=== PATIENT | female | born 2000 | race Caucasian/White ===

== ENCOUNTER 2019-03-20 09:33 | Outpatient (CLI) | payer OTHER, SELFPAY ==
--- NOTE | 2019-03-20 | US_ITS ---
WS: [id number] ULTRASOUND OB COMPLETE TECHNIQUE: Complete ultrasound. CLINICAL INFORMATION: SUPERVISION OF NORMAL FIRST IN SECOND TRIMESTER COMPARISON: None. FINDINGS: Single interuterine gestation is identified with breech presentation. Placenta is posterior. Placenta grade 0. Normal amniotic fluid volume. cardiac activity: 146 BPM. AGA: 20 weeks 4 days OSITO by ultrasound: August 03, 2019 Estimated weight: 13 ounces BDP: 4.8 cm = 20w4d HC: 17.7 cm = 20w1d AC: 15.4 cm = 20w4d FEMUR LENGTH: 3.4 cm = 20w4d Anatomic survey: Anatomic survey is normal. Normal stomach. Kidneys and bladder are normal. Normal 3 vessel cord. Norm al 3 vessel cord insertion. Normal 4 chamber heart. Normal spine. Intracranial contents are normal. N ormal posterior fossa and cisterna magna. US/US OB >= 14 weeks fetus [address]100 IMPRESSION: 1. Single intrauterine with visualized cardiac activity. AGA 20 week s 4 days 2. Placenta is posterior No evidence of abruption or previa. 3. anatomic survey is normal. 4. Normal amniotic fluid volume.
== END 2019-03-20 09:34 | disposition home or self-care (01) ==
LOC: WPI 11:25 → RADOUTREAD 11:28
PROVIDERS: Family Provider Nurse Practitioner; PCP Nurse Practitioner; Visit Provider Family Medicine
DX: Z76.89 Persons encountering health services in other specified circumstances (principal)

== ENCOUNTER 2019-04-15 19:45 | Outpatient (CLI) | payer OTHER, MEDICAID, SELFPAY ==
[2019-04-15 19:45] VITALS: BMI 20.7
[2019-04-15 19:57] VITALS: BP 141/84; PULSE 114; RESP 18; TEMP 36.5
[2019-04-15 20:07] VITALS: BP 130/77; PULSE 104
[2019-04-15 20:19] VITALS: PULSE 92; RESP 18; TEMP 36.5
--- NOTE | 2019-04-15 20:20 | PC.NURSE ---
RN at bedside, education provided on elevated blood pressures and what symptoms too look for such as head ache not relieved from tylenol, epigastric pain, visual disturbances and nausea and vomiting. patient verbalized understanding as well her spouse. Patient reported that she feel this was just an anxiety attack and that she was feeling much better, no longer feeling flushed, sweating or shaking at all. Patient reported that she felt that going home was a good plan and that she would keep her scheduled appointment with Dr. Chamberlain on Wednesday and discuss her anxiety with him at this time. Patient stated, I am feeling so much better now . Discharge paperwork discussed and patient verbalized understanding.
== END 2019-04-15 20:36 | disposition home or self-care (01) ==
LOC: OPOB 19:55 → OBGYN 20:25 → OPOB 04-17 08:07
PROVIDERS: Family Provider Nurse Practitioner; PCP Nurse Practitioner; Visit Provider Family Medicine
DX: O16.9 Unspecified maternal hypertension, unspecified trimester (principal); Z3A.00 Weeks of gestation of pregnancy not specified
CPT/HCPCS: 99211

== ENCOUNTER 2019-07-22 02:16 | Inpatient (IN) | payer OTHER, MEDICAID, SELFPAY ==
[2019-07-22] VITALS (106 sets, daily range): BP systolic 0–151; BP diastolic 0–101; PULSE 77–144; RESP 16–20; TEMP 36.7–37; O2SAT 93–100
[2019-07-22 02:50] LABS: Nitrazine Paper, PH Positive
[2019-07-22 03:26] LABS: Basophils % 0.3 %; Eosinophils # 0.1 10^3/uL (0.0-0.8); Eosinophils % 0.9 %; Hematocrit 36.2 % (37.0-47.0); Hemoglobin 11.9 g/dL (11.5-15.3); Lymphocytes # 1.8 10^3/uL (0.8-4.8); Lymphocytes % 16.9 %; Mean Corpuscular HGB Conc 32.9 g/dL (30.0-36.0); Mean Corpuscular Hemoglobin 28.7 pg (28.0-34.0); Mean Corpuscular Volume 87.4 fL (81-99); Mean Platelet Volume 10.5 fL (7.4-10.4); Monocytes # 1.4 10^3/uL (0.2-0.9); Monocytes % 12.6 %; Neutrophils # 7.5 10^3/uL (1.8-7.7); Neutrophils % 69.1 %; Nucleated Red Blood Cells % 0 %; Platelet Count 194 10^3/cmm (130-400); Red Blood Count 4.14 10^6/uL (4.1-5.3); Red Cell Distribution Width 12.5 % (12.1-15.1); White Blood Count 10.8 10^3/uL (4.0-10.0)
[2019-07-22] MEDS: dextrose 5%-lactated ringers 1,000 ML 125 ML IV (04:00)
[2019-07-22] MEDS: miSOPROStol 100 mcg tablet 25 MCG SUBLINGUAL (04:31)
[2019-07-22] MEDS: oxytocin 30 UNIT/500 ML BAG IV (08:53)
[2019-07-22] MEDS: fentaNYL 50 mcg/mL INJ 2mL IV ×2 (10:36→11:55)
[2019-07-22] MEDS: lactated ringers 1,000 ML 999 ML IV ×2 (11:20→12:20)
--- NOTE | 2019-07-22 12:23 | ANES.PREANE2 ---
Pre-Anesthetic Assessment Pre-Anesthetic Assessment: Height/Weight: Height 1.78 m Weight 74.843 kg Temp Pulse Resp BP Pulse Ox 98.2 F 102 H 20 H 116/67 100 07/22/19 09:33 07/22/19 12:21 07/22/19 11:55 07/22/19 12:21 07/22/19 12:18 Social: Social History: No alcohol and No tobacco Exam: Pre-Anes Outpt Exam: alert, oriented x 3, clear to auscultation bilaterally and regular rate & rhythm Airway: Submandibular: WNL Cervical ROM: WNL MP: 2 Dentition: Other (teeth ok) History/ROS: No significant history except as noted Pulmonary: Pulmonary: None reported CV/HEM: CV/HEM: None reported : : None reported Hepatic: Hepatic: None reported GI: GI: GERD Metabolic: Metabolic: None reported Musc/skel: Musc/skel: None reported Neuropsych: Neuropsych: None reported Anesthetic Plan: ASA status: 2 Anesthesia: Anesthesia Evaluation, Eval. for regional block and Regional (specify below) (labor epidural) Risk of > 500 ml blood loss (7ml/kg in children): No Meds/Allergies Current Medications: Current Medications Generic Name Dose Route Start Last Admin Trade Name Freq PRN Reason Stop Dose Admin Fentanyl 25 - 100 mcg 07/22/19 08:35 07/22/19 11:55 Sublimaze IV 50 mcg Q1H PRN Administration SEVERE PAIN Lactated Ringer's 1,000 mls @ 999 m ls/hr 07/22/19 02:21 07/22/19 12:20 Lactated Ringers IV 999 mls/hr .Q1H1M PRN Administration Per L&D Rescitati on Protocol Dextrose/Lactated Ringer's 1,000 mls @ 125 m ls/hr 07/22/19 02:30 07/22/19 11:20 Dextrose 5%-Lact ated Ringers IV Infused .Q8H TIRSO Infusion Oxytocin 30 unit in 500 ml s @ 1 mls/hr 07/22/19 08:45 07/22/19 10:15 Pitocin IV 11 milliunit/min .Q24H TIRSO 11 mls/hr Titration Protocol 1 MILLIUNIT/MIN Ropivacaine 200 mg in 100 mls @ 13 mls/hr 07/22/19 11:15 07/22/19 12:20 Naropin Premix EPIDURAL 13 mls/hr .Q7H42M TIRSO Administration PFSH Anesthesia PFSH: Social History (Updated 07/22/19 @ 03:29 by Liza Whitten RN) Smoking and tobacco status: never smoked Female Reproductive History: : 1 Data Anesthesia CBC & Chem 7: 07/22/19 02:55 Other Labs: Laboratory Results - last 48 hr 07/22/19 02:55 WBC 10.8 H RBC 4.14 Hgb 11.9 Hct 36.2 L MCV 87.4 MCH 28.7 MCHC 32.9 RDW 12.5 Plt Count 194 MPV 10.5 H Neut % (Auto) 69.1 Lymph % (Auto) 16.9 Atkinson % (Auto) 12.6 Eos % (Auto) 0.9 Baso % (Auto) 0.3 Neut # (Auto) 7.5 Lymph # (Auto) 1.8 Atkinson # (Auto) 1.4 H Eos # (Auto) 0.1 Baso # (Auto) 0.0 Nucleated RBC % (auto) 0 Nucleated RBCs # 0.0 Cardiac Studies: No Data to Display
--- NOTE | 2019-07-22 12:24 | ANES.PROC ---
Anesthesia Procedures Procedure/Date: 07/22/19 Epidural: Time Out Performed: Yes Consents Signed: Procedure Consent Consent: requested by attending/covering physician, risks and benefits reviewed and patient agrees to proceed Lumbar Level: L4-L5 Epidural position: sitting Epidural procedure: sterile prep of area, 18 g needle, negative for paresthesia passed, neg for paresthesia, test dose given, 1.5% xylocaine 1:200k epi (5ml), placed PCEA, no systemic response, sterile dressing applied, L.U.D. no apparent complications and 0.2% Ropiavacaine @ mls/hr (13)
--- NOTE | 2019-07-22 14:27 | P.PCNOB_ITS ---
Delivery Note: Date of delivery: July 22, 2019 Pre-Delivery Course: The patient is an otherwise healthy 19-year-old 1 female at 38 weeks estimated gestational age who presented to the hospital with spontaneous rupture of membranes. She had an unremarkable . She was GBS negative. Her glucose screen was negative. Her blood type is O+. The remainder of her labs were within normal limits. She was having inconsistent contractions. Her cervix was about 70% effaced and 2 cm dilated. Cytotec 25 mcg x 1 sublingual was used initially. 4 hours later, Pitocin was started. An epidural was placed. She then progressed to complete without di fficulty. Delivery: DELIVERY: The patient progressed to complete without difficulty. She delivered a male with a weight of 6 pounds 15 ounces with Apgars of 8, 9. The baby was delivered from the ELFEGO position. The baby was then completely delivered and placed on the mother's abdomen. The baby was crying vigorously and elected not to suction the baby's mouth and nose. The cord was then clamped and cut. There was no nuchal cord. There was no meconium. The placenta and 3 vessel cord were delivered intact shortly thereafter. The perineum and vaginal vault were carefully examined. No lacerations were noted. Both the mother and the baby were in stable condition. A&P Assessment and plan (1) 38 weeks gestation of : Status: Acute (2) Spontaneous rupture of membranes: Status: Acute (3) Spontaneous vaginal delivery: Status: Acute Coding Level of Care Code Acute Radiology Services Manager for Chg Fwd Diagnoses 38 weeks gestation of Z3A.38 Spontaneous rupture of membranes Spontaneous vaginal delivery O80
[2019-07-22] MEDS: docusate sodium 100 mg Capsule PO (17:18)
[2019-07-22] MEDS: lanolin oint 7 gm 1 APPLIC TOPICAL (17:20)
[2019-07-22] MEDS: benzocaine-menthol 78 gm Canister 1 SPRAY TOPICAL (17:20)
--- NOTE | 2019-07-22 19:32 | PC.NURSE ---
Patient ambulated to PP room at this time, no complaints of nausea, dizziness or lightheadedness.
[2019-07-23 00:27] VITALS: BP 126/76; PULSE 85; RESP 18; TEMP 36.7
[2019-07-23 03:03] LABS: Hematocrit 31.2 % (37.0-47.0); Hemoglobin 10.3 g/dL (11.5-15.3); Mean Corpuscular Hemoglobin 29.1 pg (28.0-34.0); Mean Corpuscular Volume 88.1 fL (81-99); Platelet Count 174 10^3/cmm (130-400); Red Blood Count 3.54 10^6/uL (4.1-5.3); Red Cell Distribution Width 12.6 % (12.1-15.1); White Blood Count 12.8 10^3/uL (4.0-10.0)
[2019-07-23 04:50] VITALS: BP 108/68; PULSE 81; RESP 17; TEMP 36.7; O2SAT 97
[2019-07-23 10:15] VITALS: BP 124/80; PULSE 64; RESP 18; TEMP 36.7
[2019-07-23] MEDS: prenatal vitamin Capsule 1 CAP PO (10:35)
[2019-07-23] MEDS: docusate sodium 100 mg Capsule PO (10:35)
[2019-07-23 15:46] VITALS: BP 124/80; PULSE 64; RESP 18; TEMP 36.7
--- NOTE | 2019-07-24 06:49 | PM.OBGYDC ---
Discharge Providers HEALTHCARE RISK CONTROL CONSULTANT Date of Admission: 07/22/19 02:16 Date of Discharge: 07/24/19 Attending Provider at Admission: Gato Chamberlain MD Attending Provider at Discharge: Gato Chamberlain MD Primary Care Provider: NIKOLAS Martinez Diagnoses at Discharge Discharge Diagnosis (1) 38 weeks gestation of : Status: Resolved (2) Spontaneous rupture of membranes: Status: Resolved (3) Spontaneous vaginal delivery: Status: Resolved Reason for Visit Reason for Visit: Reason For Visit: LABOR Hospital Course Hospital Course: The patient presented at 38 weeks estimated gestational age due to having spontaneous rupture of membranes just prior to arrival to hospital. She was not making change, so Cytotec 25 mcg was placed. That was then followed by Pitnitesh. She gradually progressed to complete without difficulty and had an unremarkable vaginal delivery. Her course was also unremarkable. She had minimal bleeding. She breast-fed well. Her pain was well controlled. Information Peripartum Data: Infant Delivery Method: Vaginal Physical Exam Narrative: EXAM NARRATIVE: The patient is alert. She appears comfortable. Her heart has a regular rate and rhythm with no murmurs appreciated. Lungs are clear to auscultation bilaterally. Her fundus is firm and below the umbilicus. Urinary Catheter Management^: Lee: Cath Placed During This Visit: yes Urinary Catheter Date of Insertion: 07/22/19 Urinary Catheter Time of Insertion: 12:55 Discharge Data Vitals: Last Vital Signs Temp 98.1 F 07/23/19 15:46 Pulse 64 07/23/19 15:46 Resp 18 07/23/19 15:46 BP 124/80 07/23/19 15:46 Pulse Ox 97 07/23/19 04:50 Discharge Plan Discharge Patient Disposition: Home, Self-Care Condition: Stable Prescriptions: New ibuprofen 800 mg Tablet 800 mg PO TID Qty: 45 RF: 0 Continued Zyrtec 10 mg Capsule 10 mg PO DAILY PRN (Reason: Allergy Symptoms) RF: 0 Vitamin 27 mg iron- 800 mcg Tablet 1 tab PO DAILY RF: 0 Discharge Orders: Discharge Order (Routine); Ordered 07/23/19 Ordered By: Gato Chamberlain Referrals: Gato Chamberlain MD [Physician] - 6 Weeks Discharge Diet: Usual diet Discharge Activity: Limit activity as instructed Patient Instructions: OB Discharge Report, OB Food/Drug Interaction Guide, OB Proud Parent Packet, OB Vaginal Deliveries Discharge Date/Time: 07/23/19 15:35 Discharge Attestations HEALTHCARE RISK CONTROL CONSULTANT Time Spent in Discharge Care*: less than 30 min Coding Level of Care Code Acute Frit Maker for Chg Fwd Diagnoses 38 weeks gestation of Z3A.38 Spontaneous rupture of membranes Spontaneous vaginal delivery O80
== END 2019-07-23 15:35 | disposition home or self-care (01) | DRG 807 ==
LOC: OBGYN 07-23 09:54 → OPOB 07-24 07:56
PROVIDERS: Admitting Provider Family Medicine; Family Provider Nurse Practitioner; PCP Nurse Practitioner; Visit Provider Family Medicine
DX: O80 Encounter for full-term uncomplicated delivery (principal); Z37.0 Single live birth; Z3A.38 38 weeks gestation of pregnancy
CPT/HCPCS: 12345; 36415; 51702; 59025; 59409; 83986; 85025; 85027; 96374; 96375; 99211; J2795; J3010

== ENCOUNTER 2019-07-28 08:53 | Emergency (ER) | payer OTHER, MEDICAID, SELFPAY ==
[2019-07-28 09:00] VITALS: BP 141/100; PULSE 126; RESP 18; TEMP 37.2; O2SAT 100; BMI 21.1
--- NOTE | 2019-07-28 09:12 | ED_ITS ---
HPI - Female Genitourinary General: Chief complaint: Vaginal Bleeding Stated complaint: VAG BLEEDING POST GIVING 07/21 Time Seen by Provider: 07/28/19 09:04 History of Present Illness: HPI Narrative: This patient is a 19-year-old female who is 6 days from a normal spontaneous vaginal delivery. She reports no complications with the or delivery. She was delivered by Dr. Chamberlain. She has been doing well with no pain since delivery. She did run a low-grade fever the night before last. She has been having typical lochia until this morning at about 730. She got up out of bed and had a large blood clot. Since then she has been bleeding heavily, more than 1 pad per hour. She denies feeling short of breath or lightheaded. She is noted to be tachycardic on arrival. She is breast-feeding. MD elicited complaint: vaginal bleeding Pertinent past history: other (6 days ) Onset (ago): hour(s) (3) Associated symptoms: Reports fevers/chills; Deny abdominal pain, headache(s) or nausea Review of Systems General: Reports: 10 or more systems reviewed and unremarkable except in HPI and below Const: Reports: fever(s) (Night before last, 100.4); Denies: chills, fatigue or malaise Eyes: Denies: change in vision ENMT: Denies: odynophagia Card: Denies: chest pain or swelling of feet/ankles Resp: Denies: dyspnea, productive cough or non-productive cough GI: Denies: abdominal pain, nausea or vomiting : Denies: flank pain or difficulty voiding Musc: Denies: neck pain or back pain Skin/Breast: Denies: rash Neuro: Denies: headache(s), numbness in extremities or weakness in extremities Srikanth/Lymph: Denies: easy bruising or easy bleeding PFS ED PFSH: Social History (Updated 07/22/19 @ 03:29 by Liza Whitten RN) Smoking and tobacco status: never smoked Physical Exam Const: COMMON NORMALS: no acute distress, patient oriented x3, no limitations and alert GENERAL APPEARANCE: cooperative and comfortable HENMT: HEAD & SCALP: normal to inspection FACE & SINUS: normal facial exam Eye: GENERAL EYE: appearance normal, both eyes and all related structures Neck/C-Spine: COMMON NORMALS: supple, no meningeal signs and no JVD Chest: COMMONS NORMALS: normal inspection of the chest Resp: COMMON NORMALS: normal respiratory effort, No use of accessory muscles and clear to auscultation bilaterally AUSCULTATION: clear to auscultation bilaterally Cardio: COMMON NORMALS: no JVD, regular rate, regular rhythm and No murmurs present (Cardio) RATE: regular rate RHYTHM: regular rhythm GI: COMMON NORMALS: Normal to inspection, nondistended, normoactive bowel sounds present, Soft to palpation and non-tender INSPECTION: Yes normal to inspection AUSCULTATION: Yes normoactive bowel sounds PALPATION: Yes Soft to palpation Back/Pelvis: COMMON NORMALS: thoracic and lumbar spine normal to inspection Extremity: COMMON NORMALS: normal to inspection Neuro: COMMON NORMALS: patient oriented x3, moves all extremities, no focal motor deficits and no sensory deficits noted SENSORIUM/ORIENTATION: Yes alert MENINGEAL SIGNS: Yes no meningeal signs Psych: COMMON NORMALS: mental status grossly normal, cooperative and normal affect Skin: COMMON NORMALS: no rashes or lesions noted and turgor normal GENERAL SKIN EXAM: no rashes or lesions noted and turgor normal Course ED course: I spoke with Dr. Chamberlain about this patient. He recommended Cyto francois, 800 mcg per rectum now and 100 mcg per rectum 3 times daily for 3 days. He will follow her up in the office on Wednesday. Vital Signs: Vital signs: Vital Signs Temperature 98.9 F 07/28/19 09:00 Pulse Rate 79 07/28/19 10:23 Respiratory Rate 16 07/28/19 10:23 Blood Pressure 118/78 07/28/19 10:23 Pulse Oximetry 98 07/28/19 10:23 MDM - Female MDM Narrative: Medical decision making narrative: Late bleeding. She was seen in the office yesterday by Dr. Chamberlain due to her fever and was feeling fine at that time. She is not at all tender over the uterus today, no fever, no foul discharge. She is having some brisk bleeding. Will treat with Cytotec and outpatient follow-up. Hemoglobin is good. She is reliable to return if worsening in any way and we discussed return precautions. Lab Data: Labs: Lab Results 07/28/19 07/28/19 07/28/19 Range/Units 09:14 09:14 09:14 WBC 10.3 H (4.0-10.0) 10^3/ uL RBC 5.04 (4.1-5.3) 10^6/u L Hgb 14.2 (11.5-15.3) g/dL Hct 44.6 (37.0-47.0) % MCV 88.5 (81-99) fL MCH 28.2 (28.0-34.0) pg MCHC 31.8 (30.0-36.0) g/dL RDW 12.8 (12.1-15.1) % Plt Count 349 (130-400) 10^3/c mm MPV 8.6 (7.4-10.4) fL Neut % (Auto) 76.9 % Lymph % (Auto) 11.7 % Mckean % (Auto) 9.7 % Eos % (Auto) 1.1 % Baso % (Auto) 0.3 % Neut # (Auto) 7.9 H (1.8-7.7) 10^3/u L Lymph # (Auto) 1.2 (0.8-4.8) 10^3/u L Mckean # (Auto) 1.0 H (0.2-0.9) 10^3/u L Eos # (Auto) 0.1 (0.0-0.8) 10^3/u L Baso # (Auto) 0.0 (0.0-0.1) 10^3/u L Nucleated RBC % (a uto) 0 % Nucleated RBCs # 0.0 /100WBC Sodium 140 (136-145) mmol/L Potassium 3.7 (3.5-5.1) mmol/L Chloride 102 (98-107) mmol/L Carbon Dioxide 24 (22-29) mmol/L Anion Gap 17.7 (5-19) BUN 8 (6-20) mg/dL Creatinine 0.6 (0.5-0.9) mg/dL GFR Calculation 126.2 (90-130) mL/min Glucose 96 (65-115) mg/dL Calculated Osmolal ity 286 (285-295) mOsm/k g Calcium 9.9 (8.5-10.5) mg/dL Total Bilirubin 0.8 (0.15-1.2) mg/dL AST 35 H (0-32) U/L ALT 47 H (0-33) U/L Alkaline Phosphata se 181 H (35-105) IU/L Total Protein 8.1 (6.6-8.7) g/dL Albumin 4.2 (3.5-5.2) g/dL Globulin 3.9 (1.3-4.6) g/dL Blood Type O Positive Rho(D) Type Positive Antibody Screen Negative Discharge Plan Discharge Patient Disposition: Home, Self-Care Clinical Impression: Vaginal bleeding Condition: Stable Prescriptions: New Cytotec 100 mcg tablet 100 mcg [place] TID Qty: 9 RF: 0 No Action Zyrtec 10 mg Capsule 10 mg PO DAILY PRN (Reason: Allergy Symptoms) RF: 0 Vitamin 27 mg iron- 800 mcg Tablet 1 tab PO DAILY RF: 0 ibuprofen 800 mg Tablet 800 mg PO TID Qty: 45 RF: 0 Discharge Orders: Discharge Order (Routine); Ordered 07/28/19 Ordered By: Clara De La Paz Referrals: Codie Sumner FNP [Primary Care Provider] - Gato Chamberlain MD [Physician] - 08/01/19 Discharge Diet: Usual diet Discharge Activity: Resume usual activity Patient Instructions: Bleeding (ED) Activity Restrictions/Additional Instructions: Return to the emergency department if fever, abdominal pain, continued heavy bleeding, shortness of breath, chest pain, lightheadedness. Discharge Date/Time: 07/28/19 10:23 Coding Level of Care Code ED Clinical Pharmacologist for Ritchieg Fwd Exam Comprehensive
[2019-07-28] MEDS: sodium chloride 0.9% 1,000 ML 999 ML IV (09:13)
[2019-07-28 09:14] VITALS: BP 128/85; PULSE 102; RESP 16; O2SAT 99
[2019-07-28 09:31] LABS: Basophils % 0.3 %; Eosinophils # 0.1 10^3/uL (0.0-0.8); Eosinophils % 1.1 %; Hematocrit 44.6 % (37.0-47.0); Hemoglobin 14.2 g/dL (11.5-15.3); Lymphocytes # 1.2 10^3/uL (0.8-4.8); Lymphocytes % 11.7 %; Mean Corpuscular HGB Conc 31.8 g/dL (30.0-36.0); Mean Corpuscular Hemoglobin 28.2 pg (28.0-34.0); Mean Corpuscular Volume 88.5 fL (81-99); Mean Platelet Volume 8.6 fL (7.4-10.4); Monocytes % 9.7 %; Neutrophils # 7.9 10^3/uL (1.8-7.7); Neutrophils % 76.9 %; Nucleated Red Blood Cells % 0 %; Platelet Count 349 10^3/cmm (130-400); Red Blood Count 5.04 10^6/uL (4.1-5.3); Red Cell Distribution Width 12.8 % (12.1-15.1); White Blood Count 10.3 10^3/uL (4.0-10.0)
[2019-07-28 09:43] LABS: Alanine Aminotransferase 47 U/L (0-33); Albumin Level 4.2 g/dL (3.5-5.2); Alkaline Phosphatase 181 IU/L (35-105); Anion Gap 17.7 (5-19); Aspartate Amino Transferase 35 U/L (0-32); Blood Urea Nitrogen 8 mg/dL (6-20); Calcium 9.9 mg/dL (8.5-10.5); Carbon Dioxide 24 mmol/L (22-29); Chloride 102 mmol/L (98-107); Globulin 3.9 g/dL (1.3-4.6); Glomerular Filtration Rate 126.2 mL/min (90-130); Glucose 96 mg/dL (65-115); Osmolality Calculated 286 mOsm/kg (285-295); Potassium 3.7 mmol/L (3.5-5.1); Sodium 140 mmol/L (136-145); Total Bilirubin 0.8 mg/dL (0.15-1.2); Total Protein 8.1 g/dL (6.6-8.7)
[2019-07-28 10:12] VITALS: BP 127/83; PULSE 81; RESP 18; O2SAT 98
[2019-07-28] MEDS: miSOPROStol 200 mcg Tablet 800 MCG PR (10:14)
[2019-07-28 10:23] VITALS: BP 118/78; PULSE 79; RESP 16; O2SAT 98
== END 2019-07-28 10:23 | disposition home or self-care (01) ==
PROVIDERS: Emergency Provider Emergency Medicine; Family Provider Nurse Practitioner; PCP Nurse Practitioner
DX: N93.9 Abnormal uterine and vaginal bleeding, unspecified (principal)
CPT/HCPCS: 12345; 80053; 85025; 86850; 86900; 96360; 99282; 99283; J7030

== ENCOUNTER 2019-09-29 06:07 | Emergency (ER) | payer OTHER, MEDICAID, SELFPAY ==
[2019-09-29 06:15] VITALS: PULSE 122; RESP 18; TEMP 36.4; O2SAT 99
--- NOTE | 2019-09-29 06:17 | ED_ITS ---
HPI - Arrhythmia/Palpitations General: Chief Complaint: General Medical Stated Complaint: HEART RACING Time Seen by Provider: 09/29/19 06:17 History of Present Illness: HPI narrative: 19-year-old female comes in complaining of rapid heart rate began around 4 4:00 this morning. She denies any fever sweats or chills she is not had any cough she does have some submandibular lymph node tenderness. She denies any dysuria urgency or frequency she denies any nausea vomiting or diarrhea. She is not taking any [id number] cough decongestant or antihistamine medications. She is not taking any stimulants. She is 8 weeks for overall uncomplicated vaginal delivery she denies any vaginal discharge or itching. There is no pelvic pain she denies any abdominal pain shortness of breath or chest pain. She any skin lesions or infections that she is noticed. MD complaint: rapid heart beat Onset (ago): hour(s) Time: 04:00 Duration: constant Severity: moderate Context: occurred during rest Associated symptoms: Reports no associated symptoms; Deny anxiety, cough, diaphoresis, muscle cramps, nausea, paresthesias, sense of impending doom, short of breath or syncope Review of Systems Const: Denies: diaphoresis ENMT: Denies: throat pain, ear or mastoid pain, nasal discharge or nasal congestion Card: Denies: syncope Resp: Denies: dyspnea, productive cough or non-productive cough GI: Denies: nausea : Denies: flank pain, difficulty voiding, dysuria, urinary frequency or urinary urgency Musc: Denies: muscle cramps Skin/Breast: Denies: rash or pruritus Psych: Denies: anxiety PFSH ED PFSH: Medical History (Updated 09/29/19 @ 10:24 by Lazarus Ramos DO) No significant past medical history Surgical History (Updated 09/29/19 @ 06:53 by Lazarus Ramos DO) No significant past surgical history Social History (Updated 09/29/19 @ 06:53 by Lazarus Ramos DO) Smoking and tobacco status: never smoked Alcohol intake: never Physical Exam Const: COMMON NORMALS: no acute distress GENERAL APPEARANCE: cooperative and comfortable ORIENTATION/CONSCIOUSNESS: Yes awake, Yes oriented to person, Yes oriented to place and Yes oriented to time HENMT: COMMON NORMALS: normocephalic, atraumatic, hearing grossly normal bilaterally, external ears normal, EAC's normal, TM's normal bilaterally, Normal nasal mucous membranes and turbinates present, moist oral mucous membranes and oropharynx normal HEAD & SCALP: normocephalic and atraumatic NOSE: Normal nasal mucous membranes and turbinates present EXTERNAL EAR: Yes external ears normal EXTERNAL AUDITORY CANAL: EAC's normal TYMPANIC MEMBRANE: TM's normal bilaterally Eye: COMMON NORMALS: Equal, round and reactive pupils present, EOMs intact bilaterally, conjunctivae normal and no scleral icterus CONJUNCTIVA: Yes conjunctivae normal PUPIL: Yes Equal, round and reactive pupils present Neck/C-Spine: COMMON NORMALS: full ROM, no lymphadenopathy, supple and no JVD Lymph: LYMPHATIC: no lymphadenopathy noted and no lymphedema noted Resp: COMMON NORMALS: normal respiratory effort, No retractions, No use of accessory muscles and clear to auscultation bilaterally AUSCULTATION: clear to auscultation bilaterally Cardio: COMMON NORMALS: no JVD, regular rate, regular rhythm and No murmurs present (Cardio) RATE: regular rate RHYTHM: regular rhythm GI: COMMON NORMALS: Soft to palpation and No hepatosplenomegaly present AUSCULTATION: Yes normoactive bowel sounds PALPATION: Yes Soft to palpation, No Tenderness to palpation present (GI), No Guarding due to palpation present (GI) and Yes No hepatosplenomegaly present Extremity: COMMON NORMALS: normal to inspection, capillary refill normal, no clubbing, cyanosis or edema, no calf tenderness and no pedal edema Neuro: SENSORIUM/ORIENTATION: Yes oriented to person, Yes oriented to place and Yes oriented to time Skin: COMMON NORMALS: no rashes or lesions noted GENERAL SKIN EXAM: no rashes or lesions noted Course Vital Signs: Vital signs: Vital Signs Temperature 97.6 F 09/29/19 06:15 Pulse Rate 109 H 09/29/19 10:35 Respiratory Rate 18 09/29/19 10:35 Blood Pressure 105/55 09/29/19 10:35 Pulse Oximetry 98 09/29/19 10:35 MDM - Arrhythmia/Palpitations MDM Narrative: Medical decision making narrative: Patient has some mild dehydration she did improve after IV fluids. She had some ketones she did not have any significant elevation of BUN or creatinine. However follow-up with her primary care doctor return if has any further problems push fluids at home. Lab Data: Labs: Lab Results 09/29/19 09/29/19 09/29/19 Range/Units 07:00 08:08 08:08 WBC 7.4 (4.0-10.0) 10^3/ uL RBC 4.62 (4.1-5.3) 10^6/u L Hgb 13.0 (11.5-15.3) g/dL Hct 40.3 (37.0-47.0) % MCV 87.2 (81-99) fL MCH 28.1 (28.0-34.0) pg MCHC 32.3 (30.0-36.0) g/dL RDW 13.3 (12.1-15.1) % Plt Count 252 (130-400) 10^3/c mm MPV 8.2 (7.4-10.4) fL Neut % (Auto) 83.4 % Lymph % (Auto) 9.7 % [place] % (Auto) 6.2 % Eos % (Auto) 0.3 % Baso % (Auto) 0.3 % Neut # (Auto) 6.16 (1.8-7.7) 10^3/u L Lymph # (Auto) 0.7 L (0.8-4.8) 10^3/u L [place] # (Auto) 0.5 (0.2-0.9) 10^3/u L Eos # (Auto) 0.0 (0.0-0.8) 10^3/u L Baso # (Auto) 0.0 (0.0-0.1) 10^3/u L Nucleated RBC % (a uto) 0 % Nucleated RBCs # 0.0 /100WBC Sodium (136-145) mmol/L Potassium (3.5-5.1) mmol/L Chloride (98-107) mmol/L Carbon Dioxide (22-29) mmol/L Anion Gap (5-19) BUN (6-20) mg/dL Creatinine (0.5-0.9) mg/dL GFR Calculation (90-130) mL/min Glucose (65-115) mg/dL Calculated Osmolal ity (285-295) mOsm/k g Lactic Acid 1.0 (0.5-2.2) mmol/L Calcium (8.5-10.5) mg/dL Total Bilirubin (0.15-1.2) mg/dL AST (0-32) U/L ALT (0-33) U/L Alkaline Phosphata se (35-105) IU/L Total Protein (6.6-8.7) g/dL Albumin (3.5-5.2) g/dL Globulin (1.3-4.6) g/dL Urine Color Yellow (Yellow) Urine Appearance Clear (CLEAR) Urine pH 5.0 (5-7) Ur Specific Gravit y 1.030 (1.005-1.030) Urine Protein Neg (Negative) Urine Glucose (UA) Norm (Normal) Urine Ketones 3+ H (Negative) Urine Blood Neg (Negative) Urine Nitrate Negative (Negative) Urine Bilirubin Neg (NEGATIVE) Urine Urobilinogen Norm (Negative) mg/dL Ur Leukocyte Caridad ase Negative (Negative) 09/29/19 Range/Units 08:08 WBC (4.0-10.0) 10^3/ uL RBC (4.1-5.3) 10^6/u L Hgb (11.5-15.3) g/dL Hct (37.0-47.0) % MCV (81-99) fL MCH (28.0-34.0) pg MCHC (30.0-36.0) g/dL RDW (12.1-15.1) % Plt Count (130-400) 10^3/c mm MPV (7.4-10.4) fL Neut % (Auto) % Lymph % (Auto) % [place] % (Auto) % Eos % (Auto) % Baso % (Auto) % Neut # (Auto) (1.8-7.7) 10^3/u L Lymph # (Auto) (0.8-4.8) 10^3/u L [place] # (Auto) (0.2-0.9) 10^3/u L Eos # (Auto) (0.0-0.8) 10^3/u L Baso # (Auto) (0.0-0.1) 10^3/u L Nucleated RBC % (a uto) % Nucleated RBCs # /100WBC Sodium 140 (136-145) mmol/L Potassium 4.1 (3.5-5.1) mmol/L Chloride 106 (98-107) mmol/L Carbon Dioxide 18 L (22-29) mmol/L Anion Gap 20.1 H (5-19) BUN 18 (6-20) mg/dL Creatinine 0.6 (0.5-0.9) mg/dL GFR Calculation 126.2 (90-130) mL/min Glucose 66 (65-115) mg/dL Calculated Osmolal ity 285 (285-295) mOsm/k g Lactic Acid (0.5-2.2) mmol/L Calcium 8.6 (8.5-10.5) mg/dL Total Bilirubin 1.7 H (0.15-1.2) mg/dL AST 16 (0-32) U/L ALT 15 (0-33) U/L Alkaline Phosphata se 81 (35-105) IU/L Total Protein 7.4 (6.6-8.7) g/dL Albumin 4.4 (3.5-5.2) g/dL Globulin 3.0 (1.3-4.6) g/dL Urine Color (Yellow) Urine Appearance (CLEAR) Urine pH (5-7) Ur Specific Gravit y (1.005-1.030) Urine Protein (Negative) Urine Glucose (UA) (Normal) Urine Ketones (Negative) Urine Blood (Negative) Urine Nitrate (Negative) Urine Bilirubin (NEGATIVE) Urine Urobilinogen (Negative) mg/dL Ur Leukocyte Caridad ase (Negative) Discharge Plan Discharge Patient Disposition: Home Clinical Impression: Acute dehydration Condition: Stable Prescriptions: No Action Zyrtec 10 mg Capsule 10 mg PO DAILY PRN (Reason: Allergy Symptoms) RF: 0 Vitamin 27 mg iron- 800 mcg Tablet 1 tab PO DAILY RF: 0 ibuprofen 800 mg tablet 800 mg PO TID PRN (Reason: pain) RF: 0 Referrals: Codie Sumner FNP [Primary Care Provider] - Discharge Diet: Advance as tolerated Discharge Activity: Resume usual activity Activity Restrictions/Additional Instructions: Drink fluids rest. Return to the clinic or ER if you have further problems. Discharge Date/Time: 09/29/19 10:35 Coding Level of Care Code ED Rehabilitation Aide/Scheduler for Ritchieg Fwd Exam Comprehensive
--- NOTE | 2019-09-29 06:18 | ECG_ITS ---
[facility] Test Date: 2019-09-29 Pat Name: Dixie Rubin Department: Room: Gender: Female Vp Purchasing: : 2000 Requested By: Lazarus Michel Order Number: [id number] Lulu MD: Iain Velazquez M.D. Measurements Intervals [place] Rate: 122 P: 79 TN: 136 QRS: 105 QRSD: 102 T: 0 QT: 338 QTc: 482 Interpretive Statements SINUS TACHYCARDIA RIGHT AXIS DEVIATION [QRS AXIS > 100] NONSPECIFIC ST & T-WAVE ABNORMALITY Compared to ECG 09/09/2018 22:12:04 Right-axis deviation now present T-wave abnormality now present Electronically Signed On 09-29-2019 18:15:00 CDT by Iain Velazquez M.D. [id number]
--- NOTE | 2019-09-29 06:18 | XR_ITS ---
WS: [id number] PORTABLE CHEST HISTORY: dyspnea/cough COMPARISON: 09/09/2018 Lungs are clear and well expanded. No pleural effusion or pneumothorax. Cardiac size: Normal. Mediastinum/Aorta: Normal mediastinum. No osseous abnormality seen. XR/XR chest 1V portable [id number] IMPRESSION: Unremarkable portable chest.
[2019-09-29 06:33] VITALS: BP 120/84; BP 122/91; BP 130/89; PULSE 109; PULSE 120; PULSE 140
[2019-09-29] MEDS: sodium chloride 0.9% 1,000 ML 999 ML IV ×2 (06:43→09:07)
[2019-09-29 08:12] VITALS: BP 110/66; PULSE 112; RESP 17; O2SAT 99
[2019-09-29 08:16] LABS: Basophils % 0.3 %; Eosinophils % 0.3 %; Hematocrit 40.3 % (37.0-47.0); Lymphocytes # 0.7 10^3/uL (0.8-4.8); Lymphocytes % 9.7 %; Mean Corpuscular HGB Conc 32.3 g/dL (30.0-36.0); Mean Corpuscular Hemoglobin 28.1 pg (28.0-34.0); Mean Corpuscular Volume 87.2 fL (81-99); Mean Platelet Volume 8.2 fL (7.4-10.4); Monocytes # 0.5 10^3/uL (0.2-0.9); Monocytes % 6.2 %; Neutrophils # 6.16 10^3/uL (1.8-7.7); Neutrophils % 83.4 %; Nucleated Red Blood Cells % 0 %; Platelet Count 252 10^3/cmm (130-400); Red Blood Count 4.62 10^6/uL (4.1-5.3); Red Cell Distribution Width 13.3 % (12.1-15.1); White Blood Count 7.4 10^3/uL (4.0-10.0)
[2019-09-29 08:22] LABS: Add Urine Microscopic? NO
[2019-09-29] MEDS: ondansetron 2 mg/ML SDV 2 mL 4 MG IVP (08:22)
[2019-09-29 08:34] LABS: Bilirubin Urine Neg (NEGATIVE); Blood Urine Neg (Negative); Glucose Urine UA Norm (Normal); Ketones Urine 3+ (Negative); Leukocyte Esterase Urine Negative (Negative); Nitrate Urine Negative (Negative); Protein Urine Neg (Negative); Urine Appearance Clear (CLEAR); Urine Color Yellow (Yellow); Urobilinogen Urine Norm (Negative)
[2019-09-29 08:40] LABS: Alanine Aminotransferase 15 U/L (0-33); Albumin Level 4.4 g/dL (3.5-5.2); Alkaline Phosphatase 81 IU/L (35-105); Anion Gap 20.1 (5-19); Aspartate Amino Transferase 16 U/L (0-32); Blood Urea Nitrogen 18 mg/dL (6-20); Calcium 8.6 mg/dL (8.5-10.5); Carbon Dioxide 18 mmol/L (22-29); Chloride 106 mmol/L (98-107); Creatinine Clr Calc Pharmacy 154.4336; Glomerular Filtration Rate 126.2 mL/min (90-130); Glucose 66 mg/dL (65-115); Osmolality Calculated 285 mOsm/kg (285-295); Potassium 4.1 mmol/L (3.5-5.1); Sodium 140 mmol/L (136-145); Total Bilirubin 1.7 mg/dL (0.15-1.2); Total Protein 7.4 g/dL (6.6-8.7)
[2019-09-29 10:35] VITALS: BP 105/55; PULSE 109; RESP 18; O2SAT 98
== END 2019-09-29 10:35 | disposition home or self-care (01) ==
PROVIDERS: Emergency Provider Family Medicine; PCP Nurse Practitioner
DX: E86.0 Dehydration (principal)
CPT/HCPCS: 12345; 71045; 80053; 81003; 83605; 85025; 87040; 93005; 93010; 96361; 96374; 96375; 99284; J2405; J7030

== ENCOUNTER → 2020-01-29 14:57 | Outpatient (BNVA) | payer OTHER, MEDICAID, SELFPAY | PROVIDERS: PCP Family Medicine; Visit Provider Internal Medicine Cardiovascular Disease | DX: R06.02 Shortness of breath (principal); N18.9 Chronic kidney disease, unspecified; R07.89 Other chest pain; I50.33 Acute on chronic diastolic (congestive) heart failure | CPT/HCPCS: 83880; 84443; 85379; 86141 ==

== ENCOUNTER 2020-01-30 06:46 | Outpatient (CLI) | payer OTHER, MEDICAID, SELFPAY ==
--- NOTE | 2020-01-30 | USCV_ITS ---
Dixie Rasmussen Age: 20 Gender: F : 2000 Exam Date: 01/30/2020 07:23 Ordering Phys: Gato Chamberlain MD Technologist: Donaldo Tapia [place] [facility] [facility] [place]: TACH BP: 106 / 90 HR: 106 Rhythm: Sinus Technical Quality: Excellent MEASUREMENTS (Male / Female) Normal Values 2D ECHO LV Diastolic Diameter PLAX 4.2 cm 4.2 - 5.9 / 3.9 - 5.3 cm LV Systolic Diameter PLAX 2.8 cm IVS Diastolic Thickness 0.7 cm 0.6 - 1.0 / 0.6 - 0.9 cm IVS Systolic Thickness 1.1 cm LVPW Diastolic Thickness 1.0 cm 0.6 - 1.0 / 0.6 - 0.9 cm LVPW Systolic Thickness 1.1 cm LVOT Diameter 2.1 cm LV Ejection Fraction 2D Teich 63.5 % LV Ejection Fraction MOD 2C 59.2 % LV Ejection Fraction 2C AL 57.6 % LA Diameter 2.8 cm LA Width 3.3 cm LA Height 3.6 cm RA Width 3.0 cm RA Height 3.4 cm Aorta at Sinotubular Diameter 2.2 cm M-MODE LV Diastolic Diameter MM 5.1 cm 4.2 - 5.9 / 3.9 - 5.3 cm LV Systolic Diameter MM 2.9 cm LV Ejection Fraction MM Teich 75.1 % IVS Diastolic Thickness MM 1.0 cm 0.6 - 1.0 / 0.6 - 0.9 cm IVS Systolic Thickness MM 1.4 cm LVPW Diastolic Thickness MM 1.0 cm 0.6 - 1.0 / 0.6 - 0.9 cm LVPW Systolic Thickness MM 1.6 cm RV Diastolic Diameter MM 1.5 cm Aortic Annulus Diameter 2.9 cm LA Ao Ratio MM 1.0 MV E Point Septal Separation 0.8 cm DOPPLER AV Peak Velocity 135.0 cm/s LVOT Peak Velocity 105.0 cm/s AV Area Cont Eq vti 2.9 cm squared AV Area Cont Eq pk 2.6 cm squared MV Area PHT 5.0 cm squared Mitral E to A Ratio 1.7 MV E' Velocity 65.5 cm/s Mitral E to MV E' Ratio 7.6 Mitral E to LV E' Lateral Ratio 6.5 Mitral E to LV E' Septal Ratio 9.3 TR Peak Velocity 103.0 cm/s TR Peak Gradient 4.2 mmHg TV Peak E Velocity 123.0 cm/s Right Atrial Pressure 3.0 mmHg Pulmonary Artery Systolic Pressu 7.2 mmHg FINDINGS Left Ventricle Normal left ventricular size and systolic function, EF 62 %. No regional wall motion abnormalities. Right Ventricle The right ventricle is normal in size and function. Right Atrium The right atrium is normal in size. Left Atrium The left atrium is normal in size. Mitral Valve Trace mitral valve regurgitation. Aortic Valve No gross abnormalities noted Tricuspid Valve Trace tricuspid valve regurgitation. Pulmonic Valve No gross abnormalities noted Pericardium Normal pericardium without effusion. Aorta Normal ascending aorta dimension. CONCLUSIONS Normal left ventricular size and systolic function, EF 62 %. No regional wall motion abnormalities. Normal cardiac chamber sizes. No significant stenotic or regurgitant lesions. There is no pericardial effusion. There are no intracardiac masses. No previous study is available for comparison. Dr Tye Rm MD [facility] (Electronically Signed) Final Date: 31 January 2020 01:12 S
== END 2020-01-30 06:47 | disposition home or self-care (01) ==
PROVIDERS: PCP Family Medicine; Visit Provider Family Medicine
DX: R00.0 Tachycardia, unspecified (principal)
CPT/HCPCS: 93306

== ENCOUNTER 2020-02-05 07:36 | Outpatient (CLI) | payer OTHER, MEDICAID, SELFPAY ==
--- NOTE | 2020-02-05 08:00 | USCV_ITS ---
Dixie Rasmussen Age: 20 Gender: F : 2000 Exam Date: 02/05/2020 07:37 Ordering Phys: Tye Rm MD ([email or web address]) Technologist: Callie Good Exam Location: [facility] – [place] Indication: Right leg pain HISTORY: Lower extremity pain. PROCEDURES: Venous duplex imaging was performed in only the right lower extremity. The following venous structures were evaluated: common femoral vein, profunda vein, proximal portion of the greater saphenous vein, superficial femoral vein, and the popliteal vein. In addition, the posterior tibial and peroneal trunk were evaluated. FINDINGS: Normal 2-D Doppler and augmentation and compressibility throughout the lower extremity venous structures. Additional imaging through the proximal calf veins also reveals no thrombus. Limited evaluation of the greater saphenous vein is patent with no thrombus. CONCLUSIONS No evidence of DVT in the above-mentioned identifiable veins. Dr Tye Rm MD [facility] (Electronically Signed) Final Date: 05 February 2020 17:41 S
[2020-02-05] MEDS: iohexol 350 mg/mL 100 mL Btl IV (08:22)
--- NOTE | 2020-02-05 09:00 | CT_ITS ---
WS: [id number] CTA OF THE CHEST WITH PULMONARY EMBOLISM PROTOCOL TECHNIQUE: High-resolution contrast enhanced CTA of the chest with coronal and sagittal reformatted i mages with pulmonary embolism protocol. MIP images are also reviewed. CLINICAL INFORMATION: R06.02 - Shortness of breath COMPARISON: None. DLP: 407.[address] scans at [facility] use at least one of these dose optimization techniques: automat ed exposure control; mA and/or kV adjustment per patient size (includes targeted exams where dose is matched to clinical indication); or iterative reconstruction. FINDINGS: Proximal main pulmonary arteries are normal. Normal segmental and subsegmental pulmonary arteries. No evidence of pulmonary embolus. Lungs are well aerated. No acute pulmonary infiltrates. No consolidation or pleural fluid. No mediast inal or hilar lymphadenopathy. No axillary lymphadenopathy. Adrenal glands are normal. Normal caliber upper abdominal aorta. Normal visualized thoracic spine. CT/CT angio chest PE protcl [id number] IMPRESSION: 1. Proximal main pulmonary arteries are normal. No evidence of pulmonary embol us. 2. Both lungs are well aerated. No acute pulmonary infiltrates. 3. No other significant findings.
== END 2020-02-05 07:37 | disposition home or self-care (01) ==
LOC: RAD 07:38
PROVIDERS: PCP Family Medicine; Visit Provider Internal Medicine Cardiovascular Disease
DX: R06.02 Shortness of breath (principal); M79.604 Pain in right leg; R79.89 Other specified abnormal findings of blood chemistry
CPT/HCPCS: 71275; 93971

== ENCOUNTER → 2020-03-10 15:28 | Outpatient (BNVA) | payer OTHER, MEDICAID, SELFPAY | PROVIDERS: PCP Family Medicine; Visit Provider Emergency Medicine | DX: Z20.828 Contact with and (suspected) exposure to other viral communicable diseases (principal) | CPT/HCPCS: 87635 ==

== ENCOUNTER 2020-11-29 12:30 | Outpatient (CLI) | payer OTHER, MEDICAID, SELFPAY ==
[2020-11-29 13:17] VITALS: BMI 17.1
--- NOTE | 2020-11-29 13:17 | ECG_ITS ---
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 Interpretive Statements NAME OF STUDY: TREADMILL STRESS ECHOCARDIOGRAM INDICATION: Chest Pain, dyspnea on exertion PROCEDURE: At the baseline, the patient's blood pressure was 128/87 mmHg, oxygen saturation 98% with a heart rate of 144 bpm. The baseline electrocardiogram showed sinus tachycardia, right axis deviation. Nonspecific ST depression. The patient exercised for 8 minutes 59 seconds on a standard Dany protocol. Patient attained a maximum heart rate of 180 beats per minute(90% % of the maximum predicted heart rate) with a blood pressure at the peak exercise of 140/77 mm Hg and oxygen saturation 92%. The EKG at the peak exercise revealed sinus tachycardia at 178 bpm, right axis deviation. Possible limb lead reversal and no significant ST-T wave changes. Patient did not have any chest pain or any significant EKG changes with the exercise. The study was terminated due to exertional fatigue and shortness of breath. During the recovery phase, there were no new changes. Blood pressure at the end of the recovery phase was 118/78 mm Hg with a heart rate of 122 beats per minute and oxygen saturation 98%. Echocardiographic pictures were taken at the baseline, immediately following the peak exercise and during the recovery phase. CONCLUSION: 1. Normal EKG response to treadmill exercise. 2. No exercise-induced chest pain or cardiac arrhythmia 3. Excellent exercise tolerance, attained a maximum of 10.2 METs. Maximum VO2 35.7 mL/kg/min. Gaviria treadmill score of 6.5. 4. Please see separate report for the echocardiographic response to exercise. Electronically Signed On 12-02-2020 10:28:45 CDT by Mari Ojeda M.D. [email or web address]
--- NOTE | 2020-11-29 13:45 | USCV_ITS ---
Dixie Rasmussen Age: 20 Gender: F : 2000 Exam Date: 11/29/2020 13:26 Ordering Phys: Tye Rm MD ([email or web address]) Technologist: Andria Wong [place] [facility] [place]: SOB, CHEST PAIN Rhythm: Sinus Patient History: Chest pain Cardiac Medications: NONE Medications in past 24 hours: NONE Contrast: Stress Results Protocol: Dany Total dose(mL): Exercise Duration (min:sec): 8:59 METS: 10.2 Resting HR: 108 Resting BP: 128 / 87 Peak HR: 180 Peak BP: 152 / 87 Max Predicted HR: 198 91 % Max Predicted HR Target HR: 168 Double Product: [id number] Stress Summary: The patient's target heart rate was achieved BP Response: Normal Reason for Termination: Test terminated after reaching maximum heart rate Cardiac Symptoms: Short of Breath ECG Analysis Resting ECG: Stress ECG: Arrhythmia: MEASUREMENTS (Male/Female) Normal Values FINDINGS Baseline echocardiogram: Normal left ventricular size and systolic function with ejection fraction estimated at 65%. Normal mitral and aortic valve. Normal right ventricular size and systolic function. No intracardiac mass. No pericardial effusion. Peak exercise echocardiogram: Augmentation of baseline left ventricular systolic function at peak exercise. No new regional wall motion abnormality with stress. Recovery echocardiogram: Left ventricular systolic function returned back to near normal. No new regional wall motion abnormality noted. CONCLUSIONS 1. This is a exercise stress echocardiogram. 2. Patient exercised for 8 minutes 59 seconds and reached 10.2 METS. Gaviria treadmill score of 6.5. 3. Normal resting echocardiogram. There were no stress-induced wall motion abnormalities. 4. Normal EKG response to treadmill exercise. Please refer to separate report for details. Mari Ojeda MD (Electronically Signed) Final Date: 02 December 2020 10:38 S
[2020-11-29 14:04] VITALS: BP 118/78; PULSE 122
== END 2020-11-29 12:31 | disposition home or self-care (01) ==
LOC: CDL 12:34
PROVIDERS: PCP Nurse Practitioner Family; Visit Provider Internal Medicine Cardiovascular Disease
DX: R07.9 Chest pain, unspecified (principal); R06.02 Shortness of breath; R06.00 Dyspnea, unspecified
CPT/HCPCS: 93017; 93350

== ENCOUNTER 2020-12-19 13:19 | Outpatient (CLI) | payer OTHER, MEDICAID, SELFPAY ==
[2020-12-19 14:20] LABS: Cortisol Random 16.98 ug/dL (2.47-19.5)
== END 2020-12-19 13:20 | disposition home or self-care (01) ==
LOC: LAB 13:24
PROVIDERS: PCP Nurse Practitioner Family; Visit Provider Internal Medicine
DX: F41.9 Anxiety disorder, unspecified (principal); R07.89 Other chest pain
CPT/HCPCS: 36415; 82533

== ENCOUNTER 2021-01-01 11:09 | Outpatient (CLI) | payer OTHER, MEDICAID, SELFPAY ==
[2021-01-01 12:07] LABS: Free T4 Free Thyroxine 1.23 ng/dL (0.82-1.77); Thyroid Stimulating Hormone 1.06 uIU/mL (0.27-4.20)
[2021-01-01 12:58] LABS: Vitamin B12 762 pg/mL (232-1245)
== END 2021-01-01 11:10 | disposition home or self-care (01) ==
PROVIDERS: PCP Nurse Practitioner Family; Visit Provider Internal Medicine
DX: R07.89 Other chest pain (principal)
CPT/HCPCS: 36415; 82607; 84439; 84443

== ENCOUNTER → 2021-01-20 08:50 | Outpatient (BNVA) | payer MEDICAID, SELFPAY | PROVIDERS: PCP Nurse Practitioner Family; Visit Provider Internal Medicine | DX: E16.2 Hypoglycemia, unspecified (principal); F41.9 Anxiety disorder, unspecified; R63.4 Abnormal weight loss; R06.02 Shortness of breath; G62.9 Polyneuropathy, unspecified | CPT/HCPCS: 99214 ==

== ENCOUNTER 2021-04-17 19:22 | Outpatient (CLI) | payer MEDICAID, SELFPAY ==
[2021-04-17] VITALS (13 sets, daily range): BP systolic 104–135; BP diastolic 66–88; PULSE 102–137; RESP 15; TEMP 36.1; O2SAT 98–100; BMI 21.4
[2021-04-17 22:04] LABS: Nitrazine Paper, PH Negative
== END 2021-04-17 20:30 | disposition home or self-care (01) ==
LOC: OPOB 19:23 → OBGYN 19:23
PROVIDERS: PCP Nurse Practitioner Family; Visit Provider Family Medicine
DX: O26.899 Other specified pregnancy related conditions, unspecified trimester (principal); Z3A.00 Weeks of gestation of pregnancy not specified; N89.8 Other specified noninflammatory disorders of vagina
CPT/HCPCS: 59025; 83986; 99211

== ENCOUNTER 2021-05-15 15:30 | Outpatient (CLI) | payer MEDICAID, SELFPAY ==
[2021-05-15 15:30] VITALS: BMI 22.6
[2021-05-15 15:47] VITALS: BP 136/88; PULSE 126
[2021-05-15 16:02] VITALS: BP 140/90; PULSE 111
[2021-05-15 16:13] VITALS: RESP 17
[2021-05-15 16:17] VITALS: BP 116/71; PULSE 105
[2021-05-15 16:32] VITALS: BP 114/73; PULSE 97
[2021-05-15 16:47] VITALS: BP 123/73; PULSE 97
== END 2021-05-15 16:50 | disposition home or self-care (01) ==
LOC: OPOB 15:31 → OBGYN 15:32
PROVIDERS: PCP Nurse Practitioner Family; Visit Provider Family Medicine
DX: O26.899 Other specified pregnancy related conditions, unspecified trimester (principal); Z3A.00 Weeks of gestation of pregnancy not specified; R10.9 Unspecified abdominal pain
CPT/HCPCS: 59025; 99211

== ENCOUNTER 2021-05-22 | Outpatient (CLI) | payer MEDICAID, SELFPAY ==
[2021-05-21 23:35] VITALS: BMI 22.2
[2021-05-22 00:10] VITALS: BP 128/79; PULSE 114
[2021-05-22 00:22] VITALS: BP 130/79; PULSE 90
[2021-05-22 00:37] VITALS: BP 123/79; PULSE 89
[2021-05-22 00:52] VITALS: BP 112/76; PULSE 91
[2021-05-22 01:07] VITALS: BP 117/81; PULSE 100
== END 2021-05-22 01:34 | disposition home or self-care (01) ==
LOC: OPOB 00:01 → OBGYN 00:01
PROVIDERS: PCP Nurse Practitioner Family; Visit Provider Family Medicine
DX: O26.899 Other specified pregnancy related conditions, unspecified trimester (principal); Z3A.00 Weeks of gestation of pregnancy not specified; R10.9 Unspecified abdominal pain
CPT/HCPCS: 59025; 83986; 99211

== ENCOUNTER 2021-05-23 06:38 | Inpatient (IN) | payer MEDICAID, SELFPAY ==
[2021-05-23] VITALS (33 sets, daily range): BP systolic 113–136; BP diastolic 60–93; PULSE 88–135; RESP 16–17; TEMP 36.1–36.9; O2SAT 97–100; BMI 22.2
[2021-05-23 06:00] LABS: Actim Prom Positive
[2021-05-23 06:57] LABS: Basophils % 0.4 %; Eosinophils # 0.1 10^3/uL (0.0-0.8); Eosinophils % 0.5 %; Hematocrit 38.9 % (37.0-47.0); Hemoglobin 12.9 g/dL (11.5-15.3); Lymphocytes # 1.4 10^3/uL (0.8-4.8); Lymphocytes % 12.7 %; Mean Corpuscular HGB Conc 33.2 g/dL (30.0-36.0); Mean Corpuscular Hemoglobin 28.7 pg (28.0-34.0); Mean Corpuscular Volume 86.6 fl (81-99); Monocytes # 1.2 10^3/uL (0.2-0.9); Monocytes % 10.9 %; Neutrophils # 8.25 10^3/uL (1.8-7.7); Nucleated Red Blood Cells % 0 %; Platelet Count 197 10^3/cmm (130-400); Red Blood Count 4.49 10^6/uL (4.1-5.3); Red Cell Distribution Width 12.4 % (12.1-15.1)
--- NOTE | 2021-05-23 07:00 | P.HP_ITS ---
Providers/Chief Complaint Admitting Physician: Anderson Mejía MD Primary Care Provider: Kenya Villa Chief Complaint: Contractions History of Present Illness Dixie Rasmussen is a 21 year old at 39.5 weeks gestation by LMP consistent with 8-week ultrasound. Her is complicated by rubella nonimmune, BV with treatment in second trimester. The patient has been having increased contractions for the last few days, and they were strong enough to wake her up at 4 AM on 05/23/2021. The contractions continued to become stronger, so she presented to labor delivery for evaluation. In labor and delivery she was noted to be 4.5 cm dilated and after 30 minutes she was 5 cm dilated. For this reason she was admitted for spontaneous labor. The patient denies any chest pains, shortness of breath, fever, nausea, vomiting, diarrhea, constipation, dysuria, leakage of fluid. She had some mild vaginal bleeding associated with contractions. This was mixed with mucus. Medications/Allergies Home Medications Medication Instructions Recorded Confirmed Last Taken Type vits no.124-ferrous fum 1 tab PO DAILY 07/22/19 05/23/21 05/22/21 History 27 mg iron-folic acid 800 mcg tablet ( Vitamin) Allergies Allergy/AdvReac Type Severity Reaction Status Date / Time Penicillins Allergy Rash as an Verified 05/23/21 05:15 ---Has never taken Keflex PFSH Acute PFSH: Medical History GERD (gastroesophageal reflux disease) No pertinent past medical history Denies diabetes, asthma, hypertension, seizures, DVT/PE PCP: NIKOLAS Danielle Surgical History S/P wisdom tooth extraction Family History Grandfather Heart disease maternal Grandmother Hyperlipidemia paternal Hypertension paternal Diabetes maternal Family/Other Diabetes paternal aunt Stroke paternal aunt Thyroid condition paternal aunt Denies family history of Colon cancer Ovarian cancer Breast cancer Uterine cancer Social History Alcohol intake: never Female Reproductive History: : 2 Spontaneous abortions: No Vitals/I&O/Wt Last Vital Signs Temp 97.0 F L 05/23/21 08:44 Pulse 90 05/23/21 06:49 Resp 16 05/23/21 06:47 BP 125/87 05/23/21 06:49 Pulse Ox 99 05/23/21 05:35 Weight last 48 hrs Weight 155 lb Physical Exam Narrative: General: Alert and oriented x3 Eyes: Pupils equal round and reactive to light and accommodation Mouth: Mucous membranes moist, pharynx non-erythematous Cardiac: Regular rate and rhythm without murmurs Lungs: Clear to auscultation bilaterally without wheezes, crackles or rhonchi Abdomen: Soft, non-tender, fundus consistent with gestational age Extremities: Trace edema in the bilateral lower extremities Data : 05/23/21 06:30 A&P Assessment and plan (1) Intrauterine : Status: Acute (2) Rubella non-immune status, antepartum: Status: Acute Plan The patient is doing well at this time and making change on her own. heart tones are reactive and she has a category 1 tracing. She is jossy every 2 to 5 minutes. We will continue to proceed with spontaneous labor. We will add Pitocin only if she stalls out. The patient would like to go without an epidural. She is GBS negative. All questions were answered. The patient is in agreement with the current plan of care. Attestations Medical Necessity Statement*: The patient will be here for greater than 2 midnights due to routine intrapartum and management of labor and delivery. Coding Level of Care Code Acute Refrigeration Service Inspector for Chg Fwd Diagnoses Intrauterine Z34.90 Rubella non-immune status, antepartum O99.891; Z28.3
[2021-05-23] MEDS: dextrose 5%-lactated ringers 1,000 ML 125 ML IV (10:09)
[2021-05-23] MEDS: oxytocin 30 UNIT/500 ML BAG 600 UNIT IV (10:10)
--- NOTE | 2021-05-23 10:20 | PM.DELIVERY ---
Delivery Note: Date of delivery: May 23, 2021 Pre-delivery diagnoses: 1. Intrauterine at 39.5 weeks gestation 2. Rubella nonimmune 3. BV with treatment and second trimester 4. Spontaneous labor Post-delivery diagnoses: 1. Intrauterine status post spontaneous vaginal delivery at 39.5 weeks gestation 2. Rubella nonimmune 3. BV with treatment and second trimester 4. Spontaneous labor 5. Delivery of healthy infant male weighing 7 pounds 15 ounces with Apgars of 7 and 9 6. Intact placenta Procedure: Spontaneous vaginal delivery Delivering Physician: Anderson Mejía MD Estimated blood loss (mL): 150 Findings: 1. Healthy male weighing 7 pounds 15 ounces with Apgars of 7 and 9 2. Intact placenta with central umbilical cord insertion site 3. Nuchal cord x1 Pre-Delivery Course: Dixie Rasmussen is a 21 year old at 39.5 weeks gestation by LMP consistent with 8-week ultrasound.? Her is complicated by rubella nonimmune, BV with treatment in second trimester. The patient had been having increased contractions for the last few days, and they were strong enough to wake her up at 4 AM on 05/23/2021.? The contractions continued to become stronger, so she presented to labor delivery for evaluation.? In labor and delivery she was noted to be 4.5 cm dilated and after 30 minutes she was 5 cm dilated.? For this reason she was admitted for spontaneous labor. The patient continued to make good change on her own. She did not request any anesthesia for pain control. The patient was complete by 9:54 AM on 05/23/2021. Delivery: The patient began pushing at 9:57 AM on 05/23/2021. The delivered in the OA position at 10:00 AM on 05/23/2021. A nuchal cord was noted and reduced prior to delivery of the 's body. The left shoulder was the anterior shoulder. It delivered with downward pressure. The rest of the delivered without complication. The 's mouth and nose were bulb suctioned by myself. The was placed on the mother's chest where the nurses were waiting to care for him. The cord was clamped by myself after approximately 1 minute and cut by the 's father. The cord was then drained of blood and a sample was obtained. Traction was placed on the umbilical cord and uterine massage was carried out and the placenta delivered at 10:07 AM on 05/23/2021. The placenta was noted to be intact with a central umbilical cord insertion site. The cervix was inspected and no lacerations were noted. The vaginal wall was inspected and no lacerations were noted. The patient had a blood clot around the placenta otherwise her bleeding is decreasing well. Currently both the mother and are doing well. The mother plans to breast-feed. History History History 2 Term 2 Miscarriages/Ectopic 0 0 Living Children 2 A&P Assessment and plan (1) Rubella non-immune status, antepartum: Status: Acute (2) Spontaneous vaginal delivery: Status: Acute Coding Level of Care Code Acute [employer] for Chg Fwd Diagnoses Rubella non-immune status, antepartum O99.891; Z28.3 Spontaneous vaginal delivery O80
[2021-05-23] MEDS: ibuprofen 800 mg tablet PO ×3 (11:53→21:22)
[2021-05-23] MEDS: benzocaine-menthol 78 gm Canister 1 SPRAY TOPICAL (11:53)
[2021-05-23] MEDS: lanolin oint 7 gm 1 APPLIC TOPICAL (11:54)
[2021-05-23] MEDS: docusate sodium 100 mg Capsule PO (18:43)
--- NOTE | 2021-05-23 19:20 | PC.NURSE ---
Patient had questions concerning combination feeding, and formula. Educated on how to offer bottle with paced bottle feeding to promote continuing to go back to the breast.
[2021-05-23 22:45] LABS: Hematocrit 31.6 % (37.0-47.0); Hemoglobin 10.5 g/dL (11.5-15.3); Mean Corpuscular HGB Conc 33.2 g/dL (30.0-36.0); Mean Corpuscular Hemoglobin 28.6 pg (28.0-34.0); Mean Corpuscular Volume 86.1 fl (81-99); Mean Platelet Volume 10.3 fL (7.4-10.4); Platelet Count 165 10^3/cmm (130-400); Red Blood Count 3.67 10^6/uL (4.1-5.3); Red Cell Distribution Width 12.2 % (12.1-15.1); White Blood Count 14.3 10^3/uL (4.0-10.0)
[2021-05-24 00:40] VITALS: BP 114/73; PULSE 79; RESP 16; TEMP 36.4; O2SAT 98
[2021-05-24 05:00] VITALS: BP 121/78; PULSE 77; RESP 16; TEMP 36.4; O2SAT 99
--- NOTE | 2021-05-24 10:02 | PM.DCS ---
Discharge Providers Date of Admission: 05/23/21 06:38 Date of Discharge: May 24, 2021 Attending Provider at Admission: Anderson Mejía MD Attending Provider at Discharge: Anderson Mejía MD Primary Care Provider: Kenya Villa Diagnoses at Discharge Discharge Diagnosis (1) Rubella non-immune status, antepartum: Status: Acute (2) Spontaneous vaginal delivery: Status: Acute Other Information Additional DC diagnoses/information: 1.? Intrauterine status post spontaneous vaginal delivery at 39.5 weeks gestation 2.? Rubella nonimmune 3.? BV with treatment and second trimester 4.? Spontaneous labor 5.? Delivery of healthy infant male weighing 7 pounds 15 ounces with Apgars of 7 and 9 6.? Intact placenta? Reason for Visit Reason for Visit: Contractions Hospital Course Hospital Course Dixie Rasmussen is a 21 year old at 39.5 weeks gestation by LMP consistent with 8-week ultrasound.? Her is complicated by rubella nonimmune, BV with treatment in second trimester. The patient had been having increased contractions for the last few days, and they were strong enough to wake her up at 4 AM on 05/23/2021.? The contractions continued to become stronger, so she presented to labor delivery for evaluation.? In labor and delivery she was noted to be 4.5 cm dilated and after 30 minutes she was 5 cm dilated.? For this reason she was admitted for spontaneous labor. The patient continued to make good change on her own.? She did not request any anesthesia for pain control.? The patient was complete by 9:54 AM on 05/23/2021. The patient began pushing at 9:57 AM on 05/23/2021.? The infant delivered in the OA position at 10:00 AM on 05/23/2021.? A nuchal cord was noted and reduced prior to delivery of the 's body.? The left shoulder was the anterior shoulder.? It delivered with downward pressure.? The rest of the infant delivered without complication.? The 's mouth and nose were bulb suctioned by myself.? The was placed on the mother's chest where the nurses were waiting to care for him.? The cord was clamped by myself after approximately 1 minute and cut by the infant's father.? The cord was then drained of blood and a sample was obtained.? Traction was placed on the umbilical cord and uterine massage was carried out and the placenta delivered at 10:07 AM on 05/23/2021.? The placenta was noted to be intact with a central umbilical cord insertion site.? The cervix was inspected and no lacerations were noted.? The vaginal wall was inspected and no lacerations were noted.? the patient has done well. Her bleeding is decreasing well. She is ambulating, voiding, passing gas and tolerating food by mouth. She is showing no signs of complications. She is breast-feeding. We will plan to have her discharged home today and follow-up with myself at [address] Villela after that for a colposcopy. Routine discharge instructions were discussed. The patient is in agreement with discharge home at this time. Physical Exam Narrative: General: Alert and oriented x3 Cardiac: Regular rate and rhythm without murmurs Lungs: Clear to auscultation bilaterally without wheezes, crackles or rhonchi Abdomen: Soft, mild tenderness over uterus. The uterus is firm and 2 cm below the umbilicus. Extremities: Trace edema in the bilateral lower extremities Discharge Data Studies Completed and Pending Laboratory Results WBC 14.3 10^3/uL (4.0-10.0) H 05/23/21 22: RBC 3.67 10^6/uL (4.1-5.3) L 05/23/21 22:25 Hgb 10.5 g/dL (11.5-15.3) L 05/23/21 22:25 Hct 31.6 % (37.0-47.0) L 05/23/21 22:25 MCV 86.1 fl (81-99) 05/23/21 22:25 MCH 28.6 pg (28.0-34.0) 05/23/21 22: MCHC 33.2 g/dL (30.0-36.0) 05/23/21 22: RDW 12.2 % (12.1-15.1) 05/23/21 22:25 Plt Count 165 10^3/cmm (130-400) 05/23/21 22:25 MPV 10.3 fL (7.4-10.4) 05/23/21 22:25 Neut % (Auto) 75.0 % 05/23/21 06:30 Lymph % (Auto) 12.7 % 05/23/21 06:30 [place] % (Auto) 10.9 % 05/23/21 06:30 Eos % (Auto) 0.5 % 05/23/21 06:30 Baso % (Auto) 0.4 % 05/23/21 06:30 Neut # (Auto) 8.25 10^3/uL (1.8-7.7) H 05/23/21 06:30 Lymph # (Auto) 1.4 10^3/uL (0.8-4.8) 05/23/21 06:30 [place] # (Auto) 1.2 10^3/uL (0.2-0.9) H 05/23/21 06:30 Eos # (Auto) 0.1 10^3/uL (0.0-0.8) 05/23/21 06:30 Baso # (Auto) 0.0 10^3/uL (0.0-0.1) 05/23/21 06:30 Nucleated RBC % (auto) 0 % 05/23/21 06:30 Nucleated RBCs # 0.0 /100WBC 05/23/21 06:30 Insulin-like GF I Positive 05/23/21 05:41 Vitals Last Vital Signs Temp 97.6 F 05/24/21 05:00 Pulse 77 05/24/21 05:00 Resp 16 05/24/21 05:00 BP 121/78 05/24/21 05:00 Pulse Ox 99 05/24/21 05:00 Discharge Plan Discharge Patient Disposition: Home Condition: Good Prescriptions: New ferrous sulfate 325 mg (65 mg iron) tablet 325 mg PO BID Qty: 30 0RF ibuprofen 800 mg Tablet 800 mg PO TID Qty: 30 0RF Continued Vitamin 27 mg iron- 800 mcg Tablet 1 tab PO DAILY 0RF Discharge Orders: Discharge Order (Routine); Ordered 05/24/21 Ordered By: Anderson Mejía Referrals: Cleo Joya MD [Physician] - 07/07/21 9:15 am Anderson Mejía MD [Physician] - 6 Weeks Discharge Diet: Regular Discharge Activity: Resume usual activity Patient Instructions: Depression (DC), Bleeding (DC), Preeclampsia and Eclampsia After Delivery (GEN), Vaginal Delivery (DC), OB Discharge Report, OB Food/Drug Interaction Guide, Opioid Safety, OB Home Care, OB [employer] Parent Packet Activity Restrictions/Additional Instructions: Nothing per vagina for 6 weeks. Discharge Attestations Time Spent in Discharge Care*: greater than 30 min Quality Metrics Clinical Quality Measures [ No reported AMI, CVA or VTE this stay] Coding Level of Care Code Acute Chg FW DC note Diagnoses Rubella non-immune status, antepartum O99.891; Z28.3 Spontaneous vaginal delivery O80
[2021-05-24 11:46] VITALS: BP 120/77; PULSE 86; RESP 16; TEMP 36.7; O2SAT 99
[2021-05-24] MEDS: measles,mumps,rubella pf Vial (w/diluent) 0.5 ML SUBCUT (12:00)
[2021-05-24 12:37] VITALS: BP 120/77; PULSE 86; RESP 16; TEMP 36.7; O2SAT 99
== END 2021-05-24 12:35 | disposition home or self-care (01) | DRG 807 ==
LOC: OPOB 06:39 → OBGYN 06:39
PROVIDERS: Admitting Provider Family Medicine; PCP Nurse Practitioner Family; Visit Provider Family Medicine
DX: O69.9XX0 Labor and delivery complicated by cord complication, unspecified, not applicable or unspecified (principal); Z37.0 Single live birth; Z3A.39 39 weeks gestation of pregnancy
CPT/HCPCS: 36415; 59025; 59409; 84112; 85025; 85027; 90707; 98960; 99211

== ENCOUNTER 2021-05-25 19:13 | Emergency (ER) | payer MEDICAID, SELFPAY ==
[2021-05-25 19:20] VITALS: BP 119/75; PULSE 112; RESP 18; TEMP 36.9; O2SAT 97
[2021-05-25 20:23] LABS: Basophils % 0.2 %; Eosinophils # 0.1 10^3/uL (0.0-0.8); Eosinophils % 0.3 %; Hematocrit 35.5 % (37.0-47.0); Hemoglobin 11.6 g/dL (11.5-15.3); Lymphocytes # 0.6 10^3/uL (0.8-4.8); Lymphocytes % 3.3 %; Mean Corpuscular HGB Conc 32.7 g/dL (30.0-36.0); Mean Corpuscular Hemoglobin 28.2 pg (28.0-34.0); Mean Corpuscular Volume 86.4 fl (81-99); Mean Platelet Volume 9.2 fL (7.4-10.4); Monocytes # 1.4 10^3/uL (0.2-0.9); Monocytes % 7.4 %; Neutrophils # 16.14 10^3/uL (1.8-7.7); Neutrophils % 88.1 %; Nucleated Red Blood Cells % 0 %; Platelet Count 233 10^3/cmm (130-400); Red Blood Count 4.11 10^6/uL (4.1-5.3); Red Cell Distribution Width 12.6 % (12.1-15.1); White Blood Count 18.3 10^3/uL (4.0-10.0)
--- NOTE | 2021-05-25 20:25 | ED_ITS ---
Documented by User: NIKOLAS Boswell 05/25/21 22:18 HPI - Abdominal Pain General: Chief Complaint: Abdominal Pain Stated Complaint: Fever\ABD Pain\Headache\ Time Seen by Provider: 05/25/21 20:25 History of Present Illness: 21-year-old female comes in today with complaints of lower abdominal pain and fever starting about 1:00 this afternoon. Patient recently delivered on Wednesday vaginally. Dr. Mejía was her doctor. Patient denies any nausea or vomiting. Patient appears mildly unwell, but not toxic. Patient appears in mild pain. Patient reports she has been taking ibuprofen since delivery noticed 101 temperature this afternoon. Patient was concerned and came into the ER to be evaluated. Patient reports vaginal bleeding but no abnormal discharge or purulent drainage. MD elicited complaint: abdominal pain Pertinent past history: other (recent delievery) Onset (ago): hour(s) Location: Pelvis Associated Symptoms: Reports fever(s); Denies constipation, diarrhea, nausea and vomiting Review of Systems General: Reports: 10 or more systems reviewed and unremarkable except in HPI and below Const: Reports: fever(s) and malaise Card: Denies: chest pain Resp: Denies: dyspnea GI: Denies: nausea, vomiting, diarrhea or constipation : Reports: vaginal bleeding; Denies: difficulty voiding, vaginal odor or vaginal discharge Musc: Reports: back pain Skin/Breast: Denies: rash Srikanth/Lymph: Denies: easy bruising PFS ED PFSH: Medical History GERD (gastroesophageal reflux disease) No pertinent past medical history Denies diabetes, asthma, hypertension, seizures, DVT/PE PCP: NIKOLAS Danielle Surgical History S/P wisdom tooth extraction Family History Grandfather Heart disease maternal Grandmother Hyperlipidemia paternal Hypertension paternal Diabetes maternal Family/Other Diabetes paternal aunt Stroke paternal aunt Thyroid condition paternal aunt Denies family history of Colon cancer Ovarian cancer Breast cancer Uterine cancer Social History Alcohol intake: never Female Reproductive History: Spontaneous abortions: No Physical Exam Const: COMMON NORMALS: alert HENMT: COMMON NORMALS: normocephalic and Normal external nose present HEAD & SCALP: normocephalic NOSE: Normal external nose present MOUTH: Normal oral and palatal mucosa present THROAT: posterior oropharynx normal Eye: COMMON NORMALS: Equal, round and reactive pupils present and EOMs intact bilaterally PUPIL: Yes Equal, round and reactive pupils present Neck/C-Spine: COMMON NORMALS: full ROM and no lymphadenopathy Resp: COMMON NORMALS: normal respiratory effort and clear to auscultation bila terally AUSCULTATION: clear to auscultation bilaterally Cardio: COMMON NORMALS: regular rate and regular rhythm RATE: regular rate RHYTHM: regular rhythm GI: COMMON NORMALS: Soft to palpation PALPATION: Yes Soft to palpation and Yes Tenderness to palpation present (GI) (Bilateral lower abdomen) : COMMON NORMALS: Yes no CVA tenderness BLADDER/KIDNEY EXAM: Yes no CVA tenderness Back/Pelvis: COMMON NORMALS: no CVA tenderness Extremity: COMMON NORMALS: normal to inspection Neuro: SENSORIUM/ORIENTATION: Yes alert Psych: COMMON NORMALS: cooperative Course ED course: 2199, reviewed patient with Dr. Cochran who recommended I discussed with Dr. Mejía for further recommendations. I discussed patient with Dr. Mejía he agreed with plan to go ahead and place patient on cephalexin 500 twice a day for the next 7 days to cover for possible urinary tract infection although he has more of a suspicion for a viral illness. CT and ultrasound did not indicate any endometritis or other abdominal pathology at this time. This was explained to patient who reported understanding and agreed to plan. Vital Signs: Vital signs: Vital Signs Temperature 98.2 F 05/25/21 20:37 Pulse Rate 78 05/25/21 22:23 Respiratory Rate 16 05/25/21 22:23 Blood Pressure 128/74 05/25/21 22:23 Pulse Oximetry 99 05/25/21 22:23 MDM - Abdominal Pain Medical Decision Making 21-year-old female comes in with lower abdominal pain with fever starting today. Patient recently delivered on Wednesday and started having a fever this afternoon. On evaluation patient's abdomen is soft with mild tenderness. No firmness or rigidity is noted in the abdomen. Bowel sounds are present. Vital signs are normal except for some elevation in pulse at 112. Patient did have a reported fever of 101 at home. Differential diagnosis includes but not limited to appendicitis, endometritis, UTI. CBC had a 18,000 white count, CMP was unremarkable, urinalysis had some white blood cells and red blood cells. CT of abdomen pelvis was unremarkable. Ultrasound of the pelvis indicated normal endometrial size and normal uterus. Reviewed the exam with Dr. Mejía who agreed with plan to treat for urinary tract infection and will follow up in the office tomorrow. I reviewed this with patient who agreed with the plan with recommendations and follow-up. Lab Data : 05/25/21 20:16 05/25/21 20:16 Labs/Radiology: Radiology Impressions Abdomen/Pelvis CT 05/25/21 20:30 IMPRESSION: 1. The uterus is enlarged, consistent with the history of recent status. No abnormal air in the endometrium. 2. No adnexal abnormality noted. 3. No acute abnormality of the solid abdominal organs demonstrated. 4. No acute bowel abnormality identified. 5. Source of patient's fever is not identified. Pelvis Ultrasound 05/25/21 20:37 IMPRESSION: 1. Uterus measures 16.1 cm longitudinal x 11.5 cm transverse x 10.5 cm AP. This is consistent with status. 2. The endometrium measures 9 mm in thickness, and is normal in echotexture. No abnormal fluid within the endometrial canal. 3. No ovarian/adnexal abnormality demonstrated. Laboratory Results WBC 18.3 10^3/uL (4.0-10.0) H 05/25/21 20:16 RBC 4.11 10^6/uL (4.1-5.3) 05/25/21 20:16 Hgb 11.6 g/dL (11.5-15.3) 05/25/21 20:16 Hct 35.5 % (37.0-47.0) L 05/25/21 20:16 MCV 86.4 fl (81-99) 05/25/21 20:16 MCH 28.2 pg (28.0-34.0) 05/25/21 20:16 MCHC 32.7 g/dL (30.0-36.0) 05/25/21 20:16 RDW 12.6 % (12.1-15.1) 05/25/21 20:16 Plt Count 233 10^3/cmm (130-400) 05/25/21 20:16 MPV 9.2 fL (7.4-10.4) 05/25/21 20:16 Neut % (Auto) 88.1 % 05/25/21 20:16 Lymph % (Auto) 3.3 % 05/25/21 20:16 Wirt % (Auto) 7.4 % 05/25/21 20:16 Eos % (Auto) 0.3 % 05/25/21 20:16 Baso % (Auto) 0.2 % 05/25/21 20:16 Neut # (Auto) 16.14 10^3/uL (1.8-7.7) H 05/25/21 20:16 Lymph # (Auto) 0.6 10^3/uL (0.8-4.8) L 05/25/21 20:16 Wirt # (Auto) 1.4 10^3/uL (0.2-0.9) H 05/25/21 20:16 Eos # (Auto) 0.1 10^3/uL (0.0-0.8) 05/25/21 20:16 Baso # (Auto) 0.0 10^3/uL (0.0-0.1) 05/25/21 20:16 Nucleated RBC % (auto) 0 % 05/25/21 20:16 Nucleated RBCs # 0.0 /100WBC 05/25/21 20:16 Sodium 136 mmol/L (136-145) 05/25/21 20:16 Potassium 3.5 mmol/L (3.5-5.1) 05/25/21 20:16 Chloride 102 mmol/L (98-107) 05/25/21 20:16 Carbon Dioxide 22 mmol/L (22-29) 05/25/21 20:16 Anion Gap 15.5 (5-19) 05/25/21 20:16 BUN 7 mg/dL (6-20) 05/25/21 20:16 Creatinine 0.6 mg/dL (0.5-0.9) 05/25/21 20:16 GFR Calculation 123.9 mL/min (90-130) 05/25/21 20:16 Glucose 107 mg/dL (65-115) 05/25/21 20:16 Calculated Osmolality 280 mOsm/kg (285-295) L 05/25/21 20:16 Lactic Acid 0.6 mmol/L (0.5-2.2) 05/25/21 20:58 Calcium 9.1 mg/dL (8.5-10.5) 05/25/21 20:16 Total Bilirubin 0.6 mg/dL (0.15-1.2) 05/25/21 20:16 AST 29 U/L (0-32) 05/25/21 20:16 ALT 20 U/L (0-33) 05/25/21 20:16 Alkaline Phosphatase 170 IU/L (35-105) H 05/25/21 20:16 Total Protein 6.5 g/dL (6.6-8.7) L 05/25/21 20:16 Albumin 3.5 g/dL (3.5-5.2) 05/25/21 20:16 Globulin 3.0 g/dL (1.3-4.6) 05/25/21 20:16 Lipase 33 U/L (13-60) 05/25/21 20:16 Urine Color Yellow (Yellow) 05/25/21 20:20 Urine Appearance Clear (CLEAR) 05/25/21 20:20 Urine pH 6 (5-7) 05/25/21 20:20 Ur Specific [place] 1.005 (1.005-1.030) 05/25/21 20:20 Urine Protein Neg (Negative) 05/25/21 20:20 Urine Glucose (UA) Norm (Normal) 05/25/21 20:20 Urine Ketones Negative (Negative) 05/25/21 20:20 Urine Blood 2+ (Negative) H 05/25/21 20:20 Urine Nitrate Negative (Negative) 05/25/21 20:20 Urine Bilirubin Neg (Negative) 05/25/21 20:20 Urine Urobilinogen Norm mg/dL (Negative) 05/25/21 20:20 Ur Leukocyte Esterase 1+ (Negative) H 05/25/21 20:20 Urine RBC 10-15 /hpf (0-2) H 05/25/21 20:20 Urine WBC 10-15 /hpf (0-5) H 05/25/21 20:20 Ur Squamous Epith Cells 0-4 /hpf (0-5) H 05/25/21 20:20 Amorphous Sediment 1+ /hpf 05/25/21 20:20 Urine Bacteria 1+ /hpf (NONE) H 05/25/21 20:20 Urine HCG, Qual Positive (Negative) H 05/25/21 20:20 Coronavirus 229E (PCR) Not detected (NOT DETECT) 05/25/21 22:16 Influenza Type A Ag Negative (Negative) 05/25/21 20:59 Influenza Type B Ag Negative (Negative) 05/25/21 20:59 SARS-CoV-2 (PCR) Not detected (NOT DETECT) 05/25/21 22:16 Discharge Plan Discharge Patient Disposition: Home Clinical Impression: UTI (urinary tract infection) Abdominal pain Qualifiers: Abdominal location: lower abdomen, unspecified Qualified Code(s): R10.30 - Lower abdominal pain, unspecified Condition: Stable Prescriptions: New cephalexin 500 mg capsule 500 mg PO BID 7 Days Qty: 14 0RF No Action Vitamin 27 mg iron- 800 mcg Tablet 1 tab PO DAILY 0RF ibuprofen 800 mg Tablet 800 mg PO TID Qty: 30 0RF ferrous sulfate 325 mg (65 mg iron) tablet 325 mg PO BID Qty: 30 0RF Discharge Orders: Discharge ED (Routine); Ordered 05/25/21 Ordered By: Tobias Dyer Referrals: Kenya Villa FNP [Primary Care Provider] - Discharge Diet: Usual diet Discharge Activity: Increase activity as tolerated Patient Instructions: Abdominal Pain (ED) Activity Restrictions/Additional Instructions: Drink plenty of fluids. Take antibiotics cephalexin 500 mg twice a day for 7 days. Follow-up with Dr. Mejía tomorrow in the office. Return to ER for worsening symptoms or new concerns. Coding Level of Care Code ED [employer] for Chg Fwd Exam Comprehensive Documented by User: Primo Cochran DO 05/26/21 03:18 HPI - Abdominal Pain General: Chief Complaint: Abdominal Pain Stated Complaint: Fever\ABD Pain\Headache\ Time Seen by Provider: 05/25/21 20:25 PFSH ED PFSH: Medical History GERD (gastroesophageal reflux disease) No pertinent past medical history Denies diabetes, asthma, hypertension, seizures, DVT/PE PCP: NIKOLAS Danielle Surgical History S/P wisdom tooth extraction Family History Grandfather Heart disease maternal Grandmother Hyperlipidemia paternal Hypertension paternal Diabetes maternal Family/Other Diabetes paternal aunt Stroke paternal aunt Thyroid condition paternal aunt Denies family history of Colon cancer Ovarian cancer Breast cancer Uterine cancer Social History Alcohol intake: never Course Vital Signs: Vital signs: Vital Signs Temperature 98.2 F 05/25/21 20:37 Pulse Rate 78 05/25/21 22:23 Respiratory Rate 16 05/25/21 22:23 Blood Pressure 128/74 05/25/21 22:23 Pulse Oximetry 99 05/25/21 22:23 MDM - Abdominal Pain Medical Decision Making 21-year-old female comes in with lower abdominal pain with fever starting today. Patient recently delivered on Wednesday and started having a fever this afternoon. On evaluation patient's abdomen is soft with mild tenderness. No firmness or rigidity is noted in the abdomen. Bowel sounds are present. Vital signs are normal except for some elevation in pulse at 112. Patient did have a reported fever of 101 at home. Differential diagnosis includes but not limited to appendicitis, endometritis, UTI. CBC had a 18,000 white count, CMP was unremarkable, urinalysis had some white blood cells and red blood cells. CT of abdomen pelvis was unremarkable. Ultrasound of the pelvis indicated normal endometrial size and normal uterus. Reviewed the exam with Dr. Mejía who agreed with plan to treat for urinary tract infection and will follow up in the office tomorrow. I reviewed this with patient who agreed with the plan with recommendations and follow-up. This patient was originally seen by NIKOLAS Mendez.? I agree with his history, evaluation, and treatment. Lab Data : 05/25/21 20:16 05/25/21 20:16 Labs/Radiology: Radiology Impressions Abdomen/Pelvis CT 05/25/21 20:30 IMPRESSION: 1. The uterus is enlarged, consistent with the history of recent status. No abnormal air in the endometrium. 2. No adnexal abnormality noted. 3. No acute abnormality of the solid abdominal organs demonstrated. 4. No acute bowel abnormality identified. 5. Source of patient's fever is not identified. Pelvis Ultrasound 05/25/21 20:37 IMPRESSION: 1. Uterus measures 16.1 cm longitudinal x 11.5 cm transverse x 10.5 cm AP. This is consistent with status. 2. The endometrium measures 9 mm in thickness, and is normal in echotexture. No abnormal fluid within the endometrial canal. 3. No ovarian/adnexal abnormality demonstrated. Laboratory Results WBC 18.3 10^3/uL (4.0-10.0) H 05/25/21 20:16 RBC 4.11 10^6/uL (4.1-5.3) 05/25/21 20:16 Hgb 11.6 g/dL (11.5-15.3) 05/25/21 20:16 Hct 35.5 % (37.0-47.0) L 05/25/21 20:16 MCV 86.4 fl (81-99) 05/25/21 20:16 MCH 28.2 pg (28.0-34.0) 05/25/21 20:16 MCHC 32.7 g/dL (30.0-36.0) 05/25/21 20:16 RDW 12.6 % (12.1-15.1) 05/25/21 20:16 Plt Count 233 10^3/cmm (130-400) 05/25/21 20:16 MPV 9.2 fL (7.4-10.4) 05/25/21 20:16 Neut % (Auto) 88.1 % 05/25/21 20:16 Lymph % (Auto) 3.3 % 05/25/21 20:16 Wirt % (Auto) 7.4 % 05/25/21 20:16 Eos % (Auto) 0.3 % 05/25/21 20:16 Baso % (Auto) 0.2 % 05/25/21 20:16 Neut # (Auto) 16.14 10^3/uL (1.8-7.7) H 05/25/21 20:16 Lymph # (Auto) 0.6 10^3/uL (0.8-4.8) L 05/25/21 20:16 Wirt # (Auto) 1.4 10^3/uL (0.2-0.9) H 05/25/21 20:16 Eos # (Auto) 0.1 10^3/uL (0.0-0.8) 05/25/21 20:16 Baso # (Auto) 0.0 10^3/uL (0.0-0.1) 05/25/21 20:16 Nucleated RBC % (auto) 0 % 05/25/21 20:16 Nucleated RBCs # 0.0 /100WBC 05/25/21 20:16 Sodium 136 mmol/L (136-145) 05/25/21 20:16 Potassium 3.5 mmol/L (3.5-5.1) 05/25/21 20:16 Chloride 102 mmol/L (98-107) 05/25/21 20:16 Carbon Dioxide 22 mmol/L (22-29) 05/25/21 20:16 Anion Gap 15.5 (5-19) 05/25/21 20:16 BUN 7 mg/dL (6-20) 05/25/21 20:16 Creatinine 0.6 mg/dL (0.5-0.9) 05/25/21 20:16 GFR Calculation 123.9 mL/min (90-130) 05/25/21 20:16 Glucose 107 mg/dL (65-115) 05/25/21 20:16 Calculated Osmolality 280 mOsm/kg (285-295) L 05/25/21 20:16 Lactic Acid 0.6 mmol/L (0.5-2.2) 05/25/21 20:58 Calcium 9.1 mg/dL (8.5-10.5) 05/25/21 20:16 Total Bilirubin 0.6 mg/dL (0.15-1.2) 05/25/21 20:16 AST 29 U/L (0-32) 05/25/21 20:16 ALT 20 U/L (0-33) 05/25/21 20:16 Alkaline Phosphatase 170 IU/L (35-105) H 05/25/21 20:16 Total Protein 6.5 g/dL (6.6-8.7) L 05/25/21 20:16 Albumin 3.5 g/dL (3.5-5.2) 05/25/21 20:16 Globulin 3.0 g/dL (1.3-4.6) 05/25/21 20:16 Lipase 33 U/L (13-60) 05/25/21 20:16 Urine Color Yellow (Yellow) 05/25/21 20:20 Urine Appearance Clear (CLEAR) 05/25/21 20:20 Urine pH 6 (5-7) 05/25/21 20:20 Ur Specific [place] 1.005 (1.005-1.030) 05/25/21 20:20 Urine Protein Neg (Negative) 05/25/21 20:20 Urine Glucose (UA) Norm (Normal) 05/25/21 20:20 Urine Ketones Negative (Negative) 05/25/21 20:20 Urine Blood 2+ (Negative) H 05/25/21 20:20 Urine Nitrate Negative (Negative) 05/25/21 20:20 Urine Bilirubin Neg (Negative) 05/25/21 20:20 Urine Urobilinogen Norm mg/dL (Negative) 05/25/21 20:20 Ur Leukocyte Esterase 1+ (Negative) H 05/25/21 20:20 Urine RBC 10-15 /hpf (0-2) H 05/25/21 20:20 Urine WBC 10-15 /hpf (0-5) H 05/25/21 20:20 Ur Squamous Epith Cells 0-4 /hpf (0-5) H 05/25/21 20:20 Amorphous Sediment 1+ /hpf 05/25/21 20:20 Urine Bacteria 1+ /hpf (NONE) H 05/25/21 20:20 Urine HCG, Qual Positive (Negative) H 05/25/21 20:20 Coronavirus 229E (PCR) Not detected (NOT DETECT) 05/25/21 22:16 Influenza Type A Ag Negative (Negative) 05/25/21 20:59 Influenza Type B Ag Negative (Negative) 05/25/21 20:59 SARS-CoV-2 (PCR) Not detected (NOT DETECT) 05/25/21 22:16 Discharge Plan Discharge Patient Disposition: Home Clinical Impression: UTI (urinary tract infection) Abdominal pain Qualifiers: Abdominal location: lower abdomen, unspecified Qualified Code(s): R10.30 - Lower abdominal pain, unspecified Condition: Stable Prescriptions: New cephalexin 500 mg capsule 500 mg PO BID 7 Days Qty: 14 0RF No Action Vitamin 27 mg iron- 800 mcg Tablet 1 tab PO DAILY 0RF ibuprofen 800 mg Tablet 800 mg PO TID Qty: 30 0RF ferrous sulfate 325 mg (65 mg iron) tablet 325 mg PO BID Qty: 30 0RF Discharge Orders: Discharge ED (Routine); Ordered 05/25/21 Ordered By: Tobias Dyer Referrals: Kenya Villa FNP [Primary Care Provider] - Discharge Diet: Usual diet Discharge Activity: Increase activity as tolerated Patient Instructions: Abdominal Pain (ED) Activity Restrictions/Additional Instructions: Drink plenty of fluids. Take antibiotics cephalexin 500 mg twice a day for 7 days. Follow-up with Dr. Mejía tomorrow in the office. Return to ER for worsening symptoms or new concerns. Coding Level of Care Code ED [employer] for Oren Fwd Exam Comprehensive
[2021-05-25 20:28] LABS: Add Urine Microscopic? YES; Bilirubin Urine Neg (Negative); Blood Urine 2+ (Negative); Glucose Urine UA Norm (Normal); Ketones Urine Negative (Negative); Leukocyte Esterase Urine 1+ (Negative); Nitrate Urine Negative (Negative); Protein Urine Neg (Negative); Specific Gravity, Urine 1.005 (1.005-1.030); Urine Appearance Clear (CLEAR); Urine Color Yellow (Yellow); Urobilinogen Urine Norm (Negative); pH Urine 6 (5-7)
--- NOTE | 2021-05-25 20:30 | CTR_ITS ---
PROCEDURE INFORMATION: Exam: CT Abdomen And Pelvis With Contrast Exam date and time: 05/25/2021 8:46 PM Age: 21 years old Clinical indication: Abdominal pain; Localized; Right; Patient HX: Post 05/23 vag delivery now C/O fever w R sided abd pain; Additional info: Fever, abd pain TECHNIQUE: Imaging protocol: Computed tomography of the abdomen and pelvis with contrast. Radiation optimization: All CT scans at this facility use at least one of these dose optimization techniques: automated exposure control; mA and/or kV adjustment per patient size (includes targeted exams where dose is matched to clinical indication); or iterative reconstruction. Contrast material: OMNI 300; Contrast volume: 95 ml; Contrast route: INTRAVENOUS (IV); COMPARISON: US pelvic with transvaginal 11/18/2017 8:17 AM RADIATION DOSE METRICS: Total DLP (mGy-cm): 976.5 FINDINGS: Lungs: The lung bases appear unremarkable. Liver: The liver is unremarkable in appearance. Gallbladder and bile ducts: No calcified gallstones in the gallbladder. No gallbladder wall thickening. No pericholecystic fluid. No biliary dilatation. Pancreas: The pancreas is normal in appearance. No pancreatic duct dilatation. Spleen: The spleen is normal in size and appearance. Adrenal glands: The adrenal glands appear within normal limits. Kidneys and ureters: The kidneys are normal in morphology. No hydronephrosis. No solid mass. Stomach and bowel: No acute gastric abnormality demonstrated. Appendix: No evidence of appendicitis. Intraperitoneal space: No pneumoperitoneum. No significant fluid collection. Vasculature: No abdominal aortic aneurysm. Lymph nodes: No pathologically enlarged lymph nodes. Urinary bladder: Unremarkable as visualized. Reproductive: The uterus is enlarged, consistent with the history of recent status. No abnormal air in the endometrium. No adnexal abnormality noted. Bones/joints: No fracture or other acute osseous abnormality. Soft tissues: Unremarkable. CT/CT abdomen pelvis w con* [id number] IMPRESSION: 1. The uterus is enlarged, consistent with the history of recent status. No abnormal air in the endometrium. 2. No adnexal abnormality noted. 3. No acute abnormality of the solid abdominal organs demonstrated. 4. No acute bowel abnormality identified. 5. Source of patient's fever is not identified.
[2021-05-25 20:34] LABS: Add Urine Culture? Yes; Amorphous Sediment Urine 1+ /hpf; Bacteria Urine 1+ /hpf; Squamous Epithelial Cell Urine 0-4 /hpf (0-5)
[2021-05-25 20:37] VITALS: BP 123/74; PULSE 108; RESP 18; TEMP 36.8; O2SAT 98
--- NOTE | 2021-05-25 20:37 | USR_ITS ---
PROCEDURE INFORMATION: Exam: US Nonobstetric Pelvis; Complete Exam date and time: 05/25/2021 9:04 PM Age: 21 years old Clinical indication: Abdominal pain; Lower abdomen; Additional info: Fever, abd pain, recent delivery, R/O endometritis TECHNIQUE: Imaging protocol: Transabdominal pelvic nonobstetric ultrasound. Complete exam. Real time ultrasound with image documentation. COMPARISON: US pelvic with transvaginal 11/18/2017 8:17 AM FINDINGS: Uterus: Uterus measures 16.1 cm longitudinal x 11.5 cm transverse x 10.5 cm AP. This is consistent with status. The endometrium measures 9 mm in thickness, and is normal in echotexture. No abnormal fluid within the endometrial canal. Right ovary/adnexa: Right ovary measures 3.5 x 2.6 x 3.4 cm. Follicular type cysts are demonstrated. Appropriate ovarian blood flow demonstrated by Doppler imaging. Left ovary/adnexa: Left ovary measures 5.6 x 2.5 x 4.1 cm. Follicular type cysts are demonstrated. Appropriate ovarian blood flow demonstrated by Doppler imaging. Intraperitoneal space: No intraperitoneal fluid. Urinary bladder: Urinary bladder is not demonstrated. US/US pelvic complete* [id number] IMPRESSION: 1. Uterus measures 16.1 cm longitudinal x 11.5 cm transverse x 10.5 cm AP. This is consistent with status. 2. The endometrium measures 9 mm in thickness, and is normal in echotexture. No abnormal fluid within the endometrial canal. 3. No ovarian/adnexal abnormality demonstrated.
[2021-05-25] MEDS: iohexol 300 mg/mL 100 mL Btl IV (20:46)
[2021-05-25 20:48] LABS: Alanine Aminotransferase 20 U/L (0-33); Albumin Level 3.5 g/dL (3.5-5.2); Alkaline Phosphatase 170 IU/L (35-105); Anion Gap 15.5 (5-19); Aspartate Amino Transferase 29 U/L (0-32); Blood Urea Nitrogen 7 mg/dL (6-20); Calcium 9.1 mg/dL (8.5-10.5); Carbon Dioxide 22 mmol/L (22-29); Chloride 102 mmol/L (98-107); Glomerular Filtration Rate 123.9 mL/min (90-130); Glucose 107 mg/dL (65-115); Lipase 33 U/L (13-60); Osmolality Calculated 280 mOsm/kg (285-295); Potassium 3.5 mmol/L (3.5-5.1); Sodium 136 mmol/L (136-145); Total Bilirubin 0.6 mg/dL (0.15-1.2); Total Protein 6.5 g/dL (6.6-8.7)
[2021-05-25 21:00] VITALS: BP 133/86; PULSE 115; RESP 16; O2SAT 99
[2021-05-25] MEDS: sodium chloride 0.9% 1,000 ML 999 ML IV (21:00)
[2021-05-25 21:24] LABS: Lactic Sepsis W/Reflex 0.6 mmol/L (0.5-2.2)
[2021-05-25 21:26] LABS: Influenza A by IFA Negative (Negative); Influenza B by IFA Negative (Negative)
[2021-05-25 21:51] VITALS: BP 124/81; PULSE 99; RESP 16; O2SAT 99
[2021-05-25] MEDS: cephALEXin 500 mg Capsule PO (22:20)
[2021-05-25 22:23] VITALS: BP 128/74; PULSE 78; RESP 16; O2SAT 99
[2021-05-26 00:11] LABS: Adenovirus Not Detected (NOT DETECT); Chlamydia Pneumoniae Not Detected (NOT DETECT); Coronavirus 229E,HKU1,NL63,OC4 Not Detected (NOT DETECT); Human Metapneumovirus Not Detected (NOT DETECT); Human Rhinovirus/Enterovirus Not Detected (NOT DETECT); Influenza A Not Detected (NOT DETECT); Influenza A H1 Not Detected (NOT DETECT); Influenza A H1-2009 Not Detected (NOT DETECT); Influenza A H3 Not Detected (NOT DETECT); Influenza B Not Detected (NOT DETECT); Mycoplasma Pneumoniae Not Detected (NOT DETECT); Parainfluenza Virus Type 1 Not Detected (NOT DETECT); Parainfluenza Virus Type 2 Not Detected (NOT DETECT); Parainfluenza Virus Type 3 Not Detected (NOT DETECT); Parainfluenza Virus Type 4 Not Detected (NOT DETECT); Respiratory Syncytial Virus A Not Detected (NOT DETECT); Respiratory Syncytial Virus B Not Detected (NOT DETECT); SARS-COV-2 Not Detected (NOT DETECT)
== END 2021-05-25 22:22 | disposition home or self-care (01) ==
PROVIDERS: Emergency Provider Nurse Practitioner Family; PCP Nurse Practitioner Family
DX: O86.20 Urinary tract infection following delivery, unspecified (principal); N39.0 Urinary tract infection, site not specified
CPT/HCPCS: 74177; 76856; 80053; 81001; 81025; 83605; 83690; 85025; 87040; 87086; 87635; 87804; 96360; 99283; J7030; Q9967

== ENCOUNTER → 2021-07-04 11:54 | Outpatient (BNVA) | payer OTHER, MEDICAID, SELFPAY | PROVIDERS: PCP Family Medicine; Visit Provider Family Medicine | DX: Z00.00 Encounter for general adult medical examination without abnormal findings (principal); R00.0 Tachycardia, unspecified | CPT/HCPCS: 84439; 84443; 85025 ==

== ENCOUNTER → 2021-07-07 09:57 | Outpatient (BNVA) | payer OTHER, MEDICAID, SELFPAY | PROVIDERS: PCP Family Medicine; Visit Provider Internal Medicine Cardiovascular Disease | DX: R00.0 Tachycardia, unspecified (principal); R07.89 Other chest pain; K21.9 Gastro-esophageal reflux disease without esophagitis; F41.9 Anxiety disorder, unspecified | CPT/HCPCS: 99213; 99214 ==

== ENCOUNTER → 2021-07-29 15:29 | Outpatient (BNVA) | payer OTHER, MEDICAID, SELFPAY | PROVIDERS: PCP Family Medicine; Visit Provider Obstetrics & Gynecology | DX: R87.610 Atypical squamous cells of undetermined significance on cytologic smear of cervix (ASC-US) (principal); R87.810 Cervical high risk human papillomavirus (HPV) DNA test positive | CPT/HCPCS: 81025; 87624; 88175 ==

== ENCOUNTER → 2021-09-15 11:32 | Outpatient (BNVA) | payer OTHER, SELFPAY | PROVIDERS: PCP Family Medicine; Visit Provider Registered Nurse Neonatal Intensive Care | DX: N39.0 Urinary tract infection, site not specified (principal) | CPT/HCPCS: 81000 ==

== ENCOUNTER → 2021-09-19 11:55 | Outpatient (BNVA) | payer OTHER, SELFPAY | PROVIDERS: PCP Family Medicine; Visit Provider Clinical Nurse Specialist Adult Health | DX: R30.0 Dysuria (principal); K21.9 Gastro-esophageal reflux disease without esophagitis; R19.7 Diarrhea, unspecified; R07.9 Chest pain, unspecified; R00.0 Tachycardia, unspecified; Z3A.17 17 weeks gestation of pregnancy; R07.89 Other chest pain; J34.2 Deviated nasal septum; F41.9 Anxiety disorder, unspecified; N30.00 Acute cystitis without hematuria | CPT/HCPCS: 80053; 81000; 83690; 85025; 85651; 86140 ==

== ENCOUNTER 2021-10-07 13:53 | Emergency (ER) | payer OTHER, MEDICAID, SELFPAY ==
--- NOTE | 2021-10-07 14:02 | ECG_ITS ---
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 Measurements Intervals [place] Rate: 112 P: 73 [place]: 161 QRS: 96 QRSD: 97 T: -20 QT: 295 QTc: 404 Interpretive Statements SINUS TACHYCARDIA BORDERLINE RIGHT AXIS DEVIATION [QRS AXIS > 90] NONSPECIFIC T-WAVE ABNORMALITY No previous ECG available for comparison Electronically Signed On 10-07-2021 17:55:27 CDT by Mari Ojeda M.D. [email or web address] ([id number] f
[2021-10-07 14:04] VITALS: BP 130/88; PULSE 115; RESP 16; TEMP 36.6; O2SAT 99; BMI 19.3
--- NOTE | 2021-10-07 14:56 | XRR_ITS ---
PROCEDURE INFORMATION: Exam: XR Chest Exam date and time: 10/07/2021 5:27 PM Age: 21 years old Clinical indication: Chest wall pain; Patient HX: Racing heart; Additional info: Chest pain TECHNIQUE: Imaging protocol: Radiologic exam of the chest. Views: 1 view. COMPARISON: CR XR chest 1V portable [id number] 09/29/2019 6:34 AM FINDINGS: Lungs: Lungs are hyperinflated but clear. No consolidation. Unchanged scattered punctate calcified granulomata. Pleural spaces: Unremarkable. No pleural effusion. No pneumothorax. Heart/Mediastinum: Unremarkable. No cardiomegaly. Bones/joints: No acute abnormality. XR/XR chest 1V portable [id number] IMPRESSION: No acute findings.
[2021-10-07 17:10] VITALS: BP 125/82; PULSE 103; RESP 18; O2SAT 99
--- NOTE | 2021-10-07 17:10 | PC.NURSE ---
WHILE IN LOBBY WITH PT, PT IS IN NAD.
--- NOTE | 2021-10-07 17:31 | ED_ITS ---
HPI - Chest Pain General: Chief Complaint: Chest Pain Stated Complaint: cp,n/v Time Seen by Provider: 10/07/21 17:28 Source: patient Mode of arrival: ambulatory Limitations: no limitations History of Present Illness: Patient is a 21-year-old female who presents to ED today with multiple complaints. Patient states she is having chest pains that began yesterday. She states pain is located to both sides of her chest and feels like a tightness. Patient has a longstanding history of chest pain. She has received extensive work-ups from cardiology in regards to this including stress test, echocardiogram, Holter monitor and CTA imaging. Patient definitely feels like there is an anxiety component to her chest pain. She does not feel like her chest pain today is any different than previous episodes. She is complaining of some upper abdominal pains. She did discuss this with PCP over 2 weeks ago and had labs performed which were normal. Patient does have a diagnosis of GERD and is supposed to be taking an H2 ksenia for this but has not been. She does states she has been treated for a UTI 3 times now over the past 4 months. She states she has been on 2 rounds of ciprofloxacin and now on Bactrim. She wonders if the Bactrim could be worsening her upper abdominal pain. She feels nauseous but has not had any episodes of emesis. No culture that she is aware of has never been performed on the urine. She complains of bladder pain with urination. She is not having frequency, urgency, foul- smelling urine. She does not complain of any vaginal discharge/odor/concern for STDs. Does not complain of pelvic pain. MD complaint: chest pain and other (epigastric pain) Onset (ago): day(s) Timing of current episode: episodic Prior episodes: Yes Pain location: substernal, left chest, right chest and epigastric Pain radiation: left arm Quality: tightness Relieving factors: nothing Exacerbating factors: nothing Associated symptoms: Reports abdominal pain, dyspnea and nausea; Deny fever(s), palpitations, syncope or vomiting Risk Factors: Coronary artery disease risk factors: none Thoracic aortic dissection risk factors: none Related Data: On Oral Contraceptives: No Review of Systems Const: Denies: fever(s), chills, body aches, fatigue or malaise Eyes: Denies: change in vision or blurry vision Card: Reports: chest pain and other; Denies: palpitations, irregular heart rhythm, edema, swelling of feet/ankles, lightheadedness, syncope, pre-syncope, dyspnea on exertion, orthopnea, leg pain with exertion or acrocyanosis Resp: Reports: dyspnea; Denies: productive cough, non-productive cough, wheezing, stridor, pain on inspiration, change in phlegm color, hemoptysis or chest congestion GI: Reports: abdominal pain and nausea; Denies: vomiting, diarrhea or change in bowel habits : Reports: dysuria; Denies: flank pain, difficulty voiding, urinary frequency, urinary urgency, urinary hesitancy, vaginal odor, vaginal bleeding, vaginal discharge or pelvic pain Musc: Denies: neck pain, back pain, extremity pain or joint pain Skin/Breast: Denies: rash Neuro: Denies: headache(s), numbness in extremities, weakness in extremities or sensory changes PFSH ED PFSH: Medical History Anxiety GERD (gastroesophageal reflux disease) Surgical History S/P wisdom tooth extraction Family History Grandfather Heart disease maternal Grandmother Hyperlipidemia paternal Hypertension paternal Diabetes maternal Family/Other Diabetes paternal aunt Stroke paternal aunt Thyroid condition paternal aunt Denies family history of Colon cancer Ovarian cancer Breast cancer Uterine cancer Social History Smoking and tobacco status: never smoked Alcohol intake: never Female Reproductive History: Date of last menstrual period: 09/06/21 Spontaneous abortions: No Physical Exam Const: COMMON NORMALS: no acute distress, average body habitus, patient orie nted x3, no limitations, healthy appearing, alert and well nourished GENERAL APPEARANCE: cooperative ORIENTATION/CONSCIOUSNESS: Yes awake, Yes oriented to person, Yes oriented to place and Yes oriented to time HENMT: COMMON NORMALS: normocephalic and atraumatic HEAD & SCALP: normal to inspection, normocephalic and atraumatic Chest: COMMONS NORMALS: normal inspection of the chest and normal palpation of entire chest wall Resp: COMMON NORMALS: normal respiratory effort and clear to auscultation bilaterally AUSCULTATION: clear to auscultation bilaterally Cardio: COMMON NORMALS: regular rate and regular rhythm RATE: regular rate RHYTHM: regular rhythm GI: COMMON NORMALS: Normal to inspection, nondistended, normoactive bowel sounds present, Soft to palpation, No hepatosplenomegaly present and no masses INSPECTION: Yes normal to inspection AUSCULTATION: Yes normoactive bowel sounds PALPATION: Yes Soft to palpation, Yes Tenderness to palpation present (GI) (mild epigastric ), No Guarding due to palpation present (GI), No Rigid due to palpation and Yes No hepatosplenomegaly present : COMMON NORMALS: Yes no CVA tenderness BLADDER/KIDNEY EXAM: Yes no CVA tenderness Back/Pelvis: COMMON NORMALS: no CVA tenderness Extremity: COMMON NORMALS: normal to inspection, capillary refill normal, no clubbing, cyanosis or edema, no calf tenderness and no pedal edema GENERAL: Yes normal exam except as noted Neuro: JOSE ALBERTO COMA SCALE: document [facility] findings Jose Alberto coma scale eye opening: Spontaneous Jose Alberto coma scale verbal response: [employer] coma scale motor response: [employer] coma scale total score: 15 COMMON NORMALS: patient oriented x3, moves all extremities, no focal motor deficits, no sensory deficits noted and gait normal SENSORIUM/ORIENTATION: Yes alert, Yes oriented to person, Yes oriented to place and Yes oriented to time Skin: COMMON NORMALS: no rashes or lesions noted GENERAL SKIN EXAM: no rashes or lesions noted Course Vital Signs: Vital signs: Vital Signs Temperature 97.8 F 10/07/21 14:04 Pulse Rate 115 H 10/07/21 19:19 Respiratory Rate 16 10/07/21 19:19 Blood Pressure 134/99 10/07/21 19:19 Pulse Oximetry 99 10/07/21 19:19 Oxygen Delivery Me thod 10/07/21 19:19 MDM - Chest Pain Medical Decision Making Patient's vital signs are stable. She is tachycardic but looking at previous vital signs this is not abnormal for her. She has underwent extensive ev aluation through cardiology involving a stress test, echocardiogram, Holter monitor, and CT imaging for these complaints of chest pains and tachycardia. Patient states at one point she was on propranolol for what ever reason is no longer taking this. Her blood work is unremarkable. Etiology for her upper abdominal/epigastric pain could be her known diagnosis of GERD in which she is not taking her diagnosed medication of H2 ksenia. Possibly some GI side effects from her Bactrim that she was placed on for a possible UTI. Her UA is clear here. She is unaware of any culture that has ever been performed on her urine so I question whether there is actually true infection she has been on mul tiple rounds of antibiotics and no change in symptoms. At this time I would recommend getting back on her H2. We discussed possibility of discontinuing Bactrim and then I would like her to speak to PCP in regards to something for anxiety/chest complaints. I think the propranolol was a great option as it would help both symptoms but ultimately that is a discussion between her and her primary care provider. She is certainly stable for discharge from an ED standpoint. Lab Data : 10/07/21 18:12 10/07/21 18:12 Radiology Impressions Chest X-Ray 10/07/21 14:56 IMPRESSION: No acute findings. Laboratory Results WBC 6.2 10^3/uL (4.0-10.0) 10/07/21 18:12 RBC 5.06 10^6/uL (4.1-5.3) 10/07/21 18:12 Hgb 14.3 g/dL (11.5-15.3) 10/07/21 18:12 Hct 43.5 % (37.0-47.0) 10/07/21 18:12 MCV 86.0 fl (81-99) 10/07/21 18:12 MCH 28.3 pg (28.0-34.0) 10/07/21 18:12 MCHC 32.9 g/dL (30.0-36.0) 10/07/21 18:12 RDW 12.4 % (12.1-15.1) 10/07/21 18:12 Plt Count 234 10^3/cmm (130-400) 10/07/21 18:12 MPV 8.6 fL (7.4-10.4) 10/07/21 18:12 Neut % (Auto) 75.7 % 10/07/21 18:12 Lymph % (Auto) 14.4 % 10/07/21 18:12 [place] % (Auto) 9.3 % 10/07/21 18:12 Eos % (Auto) 0.2 % 10/07/21 18:12 Baso % (Auto) 0.2 % 10/07/21 18:12 Neut # (Auto) 4.72 10^3/uL (1.8-7.7) 10/07/21 18:12 Lymph # (Auto) 0.9 10^3/uL (0.8-4.8) 10/07/21 18:12 [place] # (Auto) 0.6 10^3/uL (0.2-0.9) 10/07/21 18:12 Eos # (Auto) 0.0 10^3/uL (0.0-0.8) 10/07/21 18:12 Baso # (Auto) 0.0 10^3/uL (0.0-0.1) 10/07/21 18:12 Nucleated RBC % (auto) 0 % 10/07/21 18:12 Nucleated RBCs # 0.0 /100WBC 10/07/21 18:12 Sodium 141 mmol/L (136-145) 10/07/21 18:12 Potassium 4.1 mmol/L (3.5-5.1) 10/07/21 18:12 Chloride 103 mmol/L (98-107) 10/07/21 18:12 Carbon Dioxide 25 mmol/L (22-29) 10/07/21 18:12 Anion Gap 17.1 (5-19) 10/07/21 18:12 BUN 8 mg/dL (6-20) 10/07/21 18:12 Creatinine 0.6 mg/dL (0.5-0.9) 10/07/21 18:12 GFR Calculation 123.9 mL/min (90-130) 10/07/21 18:12 Glucose 119 mg/dL (65-115) H 10/07/21 18:12 Calculated Osmolality 291 mOsm/kg (285-295) 10/07/21 18:12 Calcium 9.5 mg/dL (8.5-10.5) 10/07/21 18:12 Total Bilirubin 0.7 mg/dL (0.15-1.2) 10/07/21 18:12 AST 22 U/L (0-32) 10/07/21 18:12 ALT 31 U/L (0-33) 10/07/21 18:12 Alkaline Phosphatase 87 U/L (35-105) 10/07/21 18:12 Total Protein 7.9 g/dL (6.6-8.7) 10/07/21 18:12 Albumin 4.8 g/dL (3.5-5.2) 10/07/21 18:12 Globulin 3.1 g/dL (1.3-4.6) 10/07/21 18:12 Lipase 26 U/L (13-60) 10/07/21 18:12 HCG, Qual Negative (Negative) 10/07/21 19:04 Urine Color Yellow (Yellow) 10/07/21 18:14 Urine Appearance Clear (CLEAR) 10/07/21 18:14 Urine pH 6 (5-7) 10/07/21 18:14 Ur Specific [place] 1.025 (1.005-1.030) 10/07/21 18:14 Urine Protein Neg (Negative) 10/07/21 18:14 Urine Glucose (UA) Norm (Normal) 10/07/21 18:14 Urine Ketones 1+ (Negative) H 10/07/21 18:14 Urine Blood Neg (Negative) 10/07/21 18:14 Urine Nitrate Negative (Negative) 10/07/21 18:14 Urine Bilirubin Neg (Negative) 10/07/21 18:14 Urine Urobilinogen Norm mg/dL (Negative) 10/07/21 18:14 Ur Leukocyte Esterase Negative (Negative) 10/07/21 18:14 Discharge Plan Discharge Patient Disposition: Home Clinical Impression: Non-cardiac chest pain, Anxiety, Epigastric pain Condition: Stable Prescriptions: No Action propranolol 10 mg tablet 10 mg PO DAILY PRN fluticasone propionate [Flonase Allergy Relief] 50 mcg/actuation spray,suspension 1 spray intranasal DAILY Qty: 16 0RF Rx Instructions: administer into each nostril All Day Allergy (cetirizine) 10 mg capsule 10 mg PO DAILY Qty: 30 0RF ciprofloxacin HCl [Cipro] 500 mg tablet 500 mg PO BID 5 Days Qty: 10 0RF Vitamin 27 mg iron- 800 mcg Tablet 1 tab PO DAILY Discharge Orders: Discharge ED (Routine); Ordered 10/07/21 Ordered By: Nataly Rausch Referrals: Anderson Mejía MD [Primary Care Provider] - Patient Instructions: Abdominal Pain (ED), Opioid Safety Coding Level of Care Code ED Resource Development Director for Chg Fwd Exam Comprehensive
[2021-10-07 18:23] VITALS: BP 136/89; PULSE 105; RESP 16; O2SAT 100
[2021-10-07 18:26] LABS: Basophils % 0.2 %; Eosinophils % 0.2 %; Hematocrit 43.5 % (37.0-47.0); Hemoglobin 14.3 g/dL (11.5-15.3); Lymphocytes # 0.9 10^3/uL (0.8-4.8); Lymphocytes % 14.4 %; Mean Corpuscular HGB Conc 32.9 g/dL (30.0-36.0); Mean Corpuscular Hemoglobin 28.3 pg (28.0-34.0); Mean Platelet Volume 8.6 fL (7.4-10.4); Monocytes # 0.6 10^3/uL (0.2-0.9); Monocytes % 9.3 %; Neutrophils # 4.72 10^3/uL (1.8-7.7); Neutrophils % 75.7 %; Nucleated Red Blood Cells % 0 %; Platelet Count 234 10^3/cmm (130-400); Red Blood Count 5.06 10^6/uL (4.1-5.3); Red Cell Distribution Width 12.4 % (12.1-15.1); White Blood Count 6.2 10^3/uL (4.0-10.0)
[2021-10-07 18:28] LABS: Add Urine Microscopic? NO; Charge for UA Resulting for Rev
[2021-10-07 18:33] LABS: Bilirubin Urine Neg (Negative); Blood Urine Neg (Negative); Glucose Urine UA Norm (Normal); Ketones Urine 1+ (Negative); Leukocyte Esterase Urine Negative (Negative); Nitrate Urine Negative (Negative); Protein Urine Neg (Negative); Specific Gravity, Urine 1.025 (1.005-1.030); Urine Appearance Clear (CLEAR); Urine Color Yellow (Yellow); Urobilinogen Urine Norm (Negative); pH Urine 6 (5-7)
[2021-10-07 19:01] LABS: Alanine Aminotransferase 31 U/L (0-33); Albumin Level 4.8 g/dL (3.5-5.2); Alkaline Phosphatase 87 U/L (35-105); Anion Gap 17.1 (5-19); Aspartate Amino Transferase 22 U/L (0-32); Blood Urea Nitrogen 8 mg/dL (6-20); Calcium 9.5 mg/dL (8.5-10.5); Carbon Dioxide 25 mmol/L (22-29); Chloride 103 mmol/L (98-107); Creatinine Clr Calc Pharmacy 151.0029; Globulin 3.1 g/dL (1.3-4.6); Glomerular Filtration Rate 123.9 mL/min (90-130); Glucose 119 mg/dL (65-115); Lipase 26 U/L (13-60); Osmolality Calculated 291 mOsm/kg (285-295); Potassium 4.1 mmol/L (3.5-5.1); Sodium 141 mmol/L (136-145); Total Bilirubin 0.7 mg/dL (0.15-1.2); Total Protein 7.9 g/dL (6.6-8.7)
[2021-10-07 19:19] VITALS: BP 134/99; PULSE 115; RESP 16; O2SAT 99
[2021-10-07] MEDS: ondansetron 2 mg/ML SDV 2 mL 4 MG IM (19:27)
[2021-10-07 19:40] LABS: HCG, Serum Qual Negative (Negative)
[2021-10-07] MEDS: LORazepam 1 mg Tablet PO (19:43)
== END 2021-10-07 20:32 | disposition home or self-care (01) ==
PROVIDERS: Emergency Provider Physician Assistant; PCP Family Medicine
DX: R07.89 Other chest pain (principal); F41.9 Anxiety disorder, unspecified; R10.13 Epigastric pain
CPT/HCPCS: 71045; 80053; 81003; 83690; 84703; 85025; 93005; 96372; 99284; J2405

== ENCOUNTER 2021-10-10 17:39 | Emergency (ER) | payer OTHER, SELFPAY ==
[2021-10-10 18:30] VITALS: BP 148/97; PULSE 103; RESP 16; TEMP 36.8; O2SAT 96; BMI 19.3
[2021-10-10 18:35] VITALS: BP 134/92; PULSE 97; RESP 16; TEMP 36.7; O2SAT 99
--- NOTE | 2021-10-10 18:40 | ECG_ITS ---
[facility] Test Date: 2021-10-10 Pat Name: Dixie Rasmussen Department: Room: Gender: Female [employer] Operator: : 2000 Requested By: Sonny Marion Order Number: [id number] Lulu MD: Iain Velazquez M.D. Measurements Intervals [place] Rate: 92 P: 78 PA: 164 QRS: 89 QRSD: 96 T: 48 QT: 322 QTc: 399 Interpretive Statements SINUS RHYTHM Compared to ECG 10/07/2021 14:03:00 Sinus tachycardia no longer present T-wave abnormality no longer present Electronically Signed On 10-10-2021 23:43:08 CDT by Iain Velazquez M.D. [id number]
[2021-10-10 19:44] LABS: Basophils % 0.2 %; Eosinophils # 0.1 10^3/uL (0.0-0.8); Eosinophils % 1.6 %; Hematocrit 43.1 % (37.0-47.0); Lymphocytes # 1.3 10^3/uL (0.8-4.8); Lymphocytes % 25.9 %; Mean Corpuscular HGB Conc 32.5 g/dL (30.0-36.0); Mean Corpuscular Hemoglobin 28.2 pg (28.0-34.0); Mean Corpuscular Volume 86.7 fl (81-99); Mean Platelet Volume 8.6 fL (7.4-10.4); Monocytes # 0.4 10^3/uL (0.2-0.9); Monocytes % 7.9 %; Neutrophils # 3.27 10^3/uL (1.8-7.7); Neutrophils % 64.2 %; Nucleated Red Blood Cells % 0 %; Platelet Count 275 10^3/cmm (130-400); Red Blood Count 4.97 10^6/uL (4.1-5.3); Red Cell Distribution Width 12.5 % (12.1-15.1); White Blood Count 5.1 10^3/uL (4.0-10.0)
[2021-10-10 20:12] LABS: Alanine Aminotransferase 29 U/L (0-33); Albumin Level 5.1 g/dL (3.5-5.2); Alkaline Phosphatase 112 U/L (35-105); Blood Urea Nitrogen 7 mg/dL (6-20); Calcium 9.7 mg/dL (8.5-10.5); Carbon Dioxide 26 mmol/L (22-29); Chloride 103 mmol/L (98-107); Globulin 3.4 g/dL (1.3-4.6); Glomerular Filtration Rate 152.9 mL/min (90-130); Glucose 119 mg/dL (65-115); Osmolality Calculated 289 mOsm/kg (285-295); Sodium 140 mmol/L (136-145); Total Bilirubin 0.6 mg/dL (0.15-1.2); Total Protein 8.5 g/dL (6.6-8.7)
[2021-10-10 20:19] LABS: Anion Gap 14.7 (5-19); Aspartate Amino Transferase 24 U/L (0-32); Potassium 3.7 mmol/L (3.5-5.1)
--- NOTE | 2021-10-10 21:11 | CTR_ITS ---
PROCEDURE INFORMATION: Exam: CTA Chest With Contrast Exam date and time: 10/10/2021 9:38 PM Age: 21 years old Clinical indication: Abnormal findings; Abnormal diagnostic tests; Elevated d-dimer; Shortness of breath; Patient HX: C/O SOB with elevated ddimer; Additional info: SOB and elevated dimer TECHNIQUE: Imaging protocol: Computed tomographic angiography of the chest with contrast. 3D rendering (Not supervised by radiologist): MIP and/or 3D reconstructed images were created by the technologist. Radiation optimization: All CT scans at this facility use at least one of these dose optimization techniques: automated exposure control; mA and/or kV adjustment per patient size (includes targeted exams where dose is matched to clinical indication); or iterative reconstruction. Contrast material: OMNI 350; Contrast volume: 73 ml; Contrast route: INTRAVENOUS (IV); COMPARISON: CT angio chest PE protcl [id number] 02/05/2020 8:09 AM RADIATION DOSE METRICS: Total DLP (mGy-cm): 169.01 FINDINGS: Pulmonary arteries: Normal. No pulmonary emboli. Aorta: Unremarkable. No aortic aneurysm. No aortic dissection. Lungs: Unremarkable. No consolidation. No masses. Pleural spaces: Unremarkable. No pneumothorax. No pleural effusion. Heart: Unremarkable. No cardiomegaly. No pericardial effusion. Lymph nodes: Unremarkable. No enlarged lymph nodes. Bones/joints: Unremarkable. No acute fracture. Soft tissues: Unremarkable. CT/CT angio chest PE protcl [id number] IMPRESSION: Negative for pulmonary embolism. No acute findings.
--- NOTE | 2021-10-10 21:11 | W.ED.CHESTPA ---
HPI - Chest Pain General: Chief Complaint: Chest Pain Stated Complaint: chest pains abnormal labs Time Seen by Provider: 10/10/21 21:01 Source: patient Mode of arrival: ambulatory Limitations: no limitations History of Present Illness: This patient came to the emergency department as a result of being referred here for a CTA. He apparently has had some breathing difficulties and as part of that work-up had a D-dimer obtained by her primary care physician and it was elevated past normal cut off. Her most recent history is that she was COVID-positive approximately 10 days ago. She states that she had perhaps 1 day of sore throat symptoms but otherwise had no other significant symptoms. She apparently also was recently treated with Bactrim and there was a question whether she developed an allergic reaction approximately 3 days ago which caused her some difficulty with breathing. She then relates to me that for the last 2 years she has had some intermittent dyspnea with exertion. She states that it seemed to be related to an event that she had during her last when she was about 6 months or so she was working and had a near syncopal episode and since that time seemingly has less exercise tolerance than ever before. She states she was always a very vigorous and active athlete growing up. No history of asthma. No tobacco use. She has not had cough or fever. No current hormone use, recent travel or immobility. No family history of thromboembolic events or clotting disorders. Quality: tightness Associated symptoms: Reports dyspnea; Deny abdominal pain, fever(s), nausea, palpitations, syncope or vomiting Risk Factors: Coronary artery disease risk factors: none Review of Systems Const: Denies: fever(s), chills or body aches Eyes: Denies: change in vision ENMT: Denies: throat pain, odynophagia, nasal congestion or nasal obstruction Card: Denies: palpitations, irregular heart rhythm, edema or syncope Resp: Reports: dyspnea; Denies: productive cough, non-productive cough, wheezing or stridor GI: Denies: abdominal pain, nausea, vomiting or diarrhea : Denies: flank pain, difficulty voiding, dysuria, urinary frequency, urinary urgency or vaginal bleeding Musc: Denies: neck pain, back pain, extremity pain or extremity swelling Skin/Breast: Denies: rash Neuro: Denies: headache(s), numbness in extremities, weakness in extremities or dizziness Psych: Denies: anxiety or depression Srikanth/Lymph: Denies: easy bruising or easy bleeding PFSH ED PFSH: Medical History Anxiety GERD (gastroesophageal reflux disease) Surgical History S/P wisdom tooth extraction Family History Grandfather Heart disease maternal Grandmother Hyperlipidemia paternal Hypertension paternal Diabetes maternal Family/Other Diabetes paternal aunt Stroke paternal aunt Thyroid condition paternal aunt Denies family history of Colon cancer Ovarian cancer Breast cancer Uterine cancer Social History Smoking and tobacco status: never smoked Alcohol intake: never Female Reproductive History: Date of last menstrual period: 10/10/21 Spontaneous abortions: No Physical Exam Narrative: EXAM NARRATIVE: Patient is an no acute distress. She is able to speak in complete sentences without dyspnea. Speech is goal-directed. She is comfortable. Const: COMMON NORMALS: no acute distress, patient oriented x3, no limitations, healthy appearing, alert and well nourished ORIENTATION/CONSCIOUSNESS: Yes awake HENMT: COMMON NORMALS: normocephalic, atraumatic, Normal nasal mucous membranes and turbinates present, moist oral mucous membranes and oropharynx normal HEAD & SCALP: normocephalic and atraumatic FACE & SINUS: normal facial exam NOSE: Normal nasal mucous membranes and turbinates present Eye: COMMON NORMALS: Equal, round and reactive pupils present, EOMs intact bilaterally and conjunctivae normal CONJUNCTIVA: Yes conjunctivae normal PUPIL: Yes Equal, round and reactive pupils present Neck/C-Spine: COMMON NORMALS: full ROM, no JVD and Thyroid normal THYROID: Thyroid normal Chest: COMMONS NORMALS: normal inspection of the chest Resp: COMMON NORMALS: normal respiratory effort, No retractions, No use of accessory muscles and clear to auscultation bilaterally EFFORT & INSPECTION: Yes able to speak in complete sentences AUSCULTATION: clear to auscultation bilaterally Cardio: COMMON NORMALS: no JVD, regular rate, regular rhythm, No murmurs present (Cardio) and Peripheral pulses 2+ throughout RATE: regular rate RHYTHM: regular rhythm PERIPHERAL PULSES: Peripheral pulses 2+ throughout GI: COMMON NORMALS: Normal to inspection, nondistended, normoactive bowel sounds present, Soft to palpation and non-tender PALPATION: Yes Soft to palpation : COMMON NORMALS: Yes no CVA tenderness BLADDER/KIDNEY EXAM: Yes no CVA tenderness Back/Pelvis: COMMON NORMALS: no CVA tenderness, thoracic and lumbar spine normal to inspection, no thoracic nor lumbar tenderness, thoraco-lumbar ROM normal and straight leg raise negative bilaterally Extremity: COMMON NORMALS: normal to inspection, full ROM, capillary refill normal, no calf tenderness and no pedal edema Neuro: COMMON NORMALS: patient oriented x3, moves all extremities, no focal motor deficits and no sensory deficits noted SENSORIUM/ORIENTATION: Yes alert CRANIAL NERVES: Yes CN normal except as noted Psych: COMMON NORMALS: mental status grossly normal Skin: COMMON NORMALS: no rashes or lesions noted, no wounds and turgor normal GENERAL SKIN EXAM: no rashes or lesions noted and turgor normal Course Reevaluation(s): Reevaluation #1: Patient remains stable awaiting CT scan report. Patient was reexamined. She did relate that she felt like she had soreness in her chest when she attempted to take a deep breath. She had minimal palpable tenderness in the anterior chest around the sternum and the sternal costal junction. She did express some relief of her symptoms and felt better when she was placed in a abducted position essentially stretching her chest backwards. She states that also some rotation to the left exacerbated her symptoms. No other focal findings. Time: 22:42 Vital Signs: Vital signs: Vital Signs Temperature 98.1 F 10/10/21 18:35 Pulse Rate 97 10/10/21 18:35 Respiratory Rate 16 10/10/21 18:35 Blood Pressure 134/92 10/10/21 18:35 Pulse Oximetry 99 10/10/21 18:35 Oxygen Delivery Me thod 10/10/21 18:30 MDM - Chest Pain Medical Decision Making This patient was referred to the emergency department because of concerns about possible pulmonary embolus. Been having some respiratory symptoms for some time but most acutely over the past several days discomfort and seemingly breathless at times. Her D-dimer is elevated and therefore the referral to the ED. She is recently had COVID-19 but has convalesced through that illness without any significant issues other than noted above. Her work-up today was reassuring in 2 ways #1 her CTA was negative for any evidence of pulmonary embolus or any other discernible pathology on her imaging. She also has some reproducibility of some of her symptoms to suggest possible costochondritis or other chest wall factor in her most recent symptoms. She has had a long history for a number of months of what she describes as shortness of breath with exertion. She is not displaying any arrhythmias or any other findings on the emergency department evaluation this evening necessitating more urgent evaluation but it would likely be advisable that she should have pulmonary function testing to discern if she has restrictive lung disease or other issues at play. I did offer her a 5-day course of prednisone to help with some of the chest wall inflammation and she agreed to proceed with that treatment plan. I will advise her to return to the emergency department anytime should she develop fever chills cough worsening shortness of breath or any other concerns. She should also schedule follow-up appoint with her primary care doctor to consider pulmonary function testing. Medical Records I reviewed the patient's medical records. Lab Data I reviewed the patient's lab results. : 10/10/21 19:36 10/10/21 19:36 Radiology Impressions Chest CTA 10/10/21 21:11 IMPRESSION: Negative for pulmonary embolism. No acute findings. Laboratory Results WBC 5.1 10^3/uL (4.0-10.0) 10/10/21 19:36 RBC 4.97 10^6/uL (4.1-5.3) 10/10/21 19:36 Hgb 14.0 g/dL (11.5-15.3) 10/10/21 19:36 Hct 43.1 % (37.0-47.0) 10/10/21 19:36 MCV 86.7 fl (81-99) 10/10/21 19:36 MCH 28.2 pg (28.0-34.0) 10/10/21 19:36 MCHC 32.5 g/dL (30.0-36.0) 10/10/21 19:36 RDW 12.5 % (12.1-15.1) 10/10/21 19:36 Plt Count 275 10^3/cmm (130-400) 10/10/21 19:36 MPV 8.6 fL (7.4-10.4) 10/10/21 19:36 Neut % (Auto) 64.2 % 10/10/21 19:36 Lymph % (Auto) 25.9 % 10/10/21 19:36 [place] % (Auto) 7.9 % 10/10/21 19:36 Eos % (Auto) 1.6 % 10/10/21 19:36 Baso % (Auto) 0.2 % 10/10/21 19:36 Neut # (Auto) 3.27 10^3/uL (1.8-7.7) 10/10/21 19:36 Lymph # (Auto) 1.3 10^3/uL (0.8-4.8) 10/10/21 19:36 [place] # (Auto) 0.4 10^3/uL (0.2-0.9) 10/10/21 19:36 Eos # (Auto) 0.1 10^3/uL (0.0-0.8) 10/10/21 19:36 Baso # (Auto) 0.0 10^3/uL (0.0-0.1) 10/10/21 19:36 Nucleated RBC % (auto) 0 % 10/10/21 19:36 Nucleated RBCs # 0.0 /100WBC 10/10/21 19:36 Sodium 140 mmol/L (136-145) 10/10/21 19:36 Potassium 3.7 mmol/L (3.5-5.1) 10/10/21 19:36 Chloride 103 mmol/L (98-107) 10/10/21 19:36 Carbon Dioxide 26 mmol/L (22-29) 10/10/21 19:36 Anion Gap 14.7 (5-19) 10/10/21 19:36 BUN 7 mg/dL (6-20) 10/10/21 19:36 Creatinine 0.5 mg/dL (0.5-0.9) 10/10/21 19:36 GFR Calculation 152.9 mL/min (90-130) H 10/10/21 19:36 Glucose 119 mg/dL (65-115) H 10/10/21 19:36 Calculated Osmolality 289 mOsm/kg (285-295) 10/10/21 19:36 Calcium 9.7 mg/dL (8.5-10.5) 10/10/21 19:36 Total Bilirubin 0.6 mg/dL (0.15-1.2) 10/10/21 19:36 AST 24 U/L (0-32) 10/10/21 19:36 ALT 29 U/L (0-33) 10/10/21 19:36 Alkaline Phosphatase 112 U/L (35-105) H 10/10/21 19:36 Total Protein 8.5 g/dL (6.6-8.7) 10/10/21 19:36 Albumin 5.1 g/dL (3.5-5.2) 10/10/21 19:36 Globulin 3.4 g/dL (1.3-4.6) 10/10/21 19:36 Discharge Plan Discharge Patient Disposition: Home Clinical Impression: Costalchondritis Condition: Stable Prescriptions: New prednisone 20 mg tablet 20 mg PO BID 5 Days Qty: 10 0RF No Action propranolol 10 mg tablet 10 mg PO DAILY PRN fluticasone propionate [Flonase Allergy Relief] 50 mcg/actuation spray,suspension 1 spray intranasal DAILY Qty: 16 0RF Rx Instructions: administer into each nostril All Day Allergy (cetirizine) 10 mg capsule 10 mg PO DAILY Qty: 30 0RF Vitamin 27 mg iron- 800 mcg Tablet 1 tab PO DAILY Discharge Orders: Discharge ED (Routine); Ordered 10/10/21 Ordered By: Thomas Grant Referrals: Anderson Mejía MD [Primary Care Provider] - 7-10 days Discharge Diet: Usual diet Discharge Activity: Increase activity as tolerated Patient Instructions: Opioid Safety Activity Restrictions/Additional Instructions: Continue usual activity and diet. We have provided a prescription to take 1 pill twice daily for the next 5 days to help with chest wall inflammation. We encourage you to call your doctor this coming week to arrange a follow-up in the next 1 to 2 weeks for reevaluation and consideration for additional testing. Should you develop increasing difficulty with breathing, persistent chest pain, fevers or any other concerns return to this or the nearest emergency department. Coding Level of Care Code ED Director Software Quality Assurance for Oren Burgos Exam Comprehensive
[2021-10-10] MEDS: iohexol 350 mg/mL 100 mL Btl IV (21:45)
== END 2021-10-10 23:02 | disposition home or self-care (01) ==
PROVIDERS: Emergency Provider Emergency Medicine; PCP Family Medicine
DX: M94.0 Chondrocostal junction syndrome [Tietze] (principal)
CPT/HCPCS: 36415; 71275; 80053; 84484; 85025; 85379; 93005; 99285; Q9967

== ENCOUNTER → 2021-11-02 15:40 | Outpatient (BNVA) | payer OTHER, SELFPAY | PROVIDERS: PCP Family Medicine; Visit Provider Nurse Practitioner | DX: N39.0 Urinary tract infection, site not specified (principal); R39.9 Unspecified symptoms and signs involving the genitourinary system | CPT/HCPCS: 81000; 87077; 87086; 87184 ==

== ENCOUNTER → 2021-11-04 14:02 | Outpatient (BNVA) | payer OTHER, SELFPAY | PROVIDERS: PCP Family Medicine; Visit Provider Family Medicine | DX: R30.0 Dysuria (principal); N39.0 Urinary tract infection, site not specified; F41.9 Anxiety disorder, unspecified | CPT/HCPCS: 81000 ==

== ENCOUNTER → 2021-12-18 13:06 | Outpatient (BNVA) | payer OTHER, SELFPAY | PROVIDERS: PCP Family Medicine; Visit Provider Family Medicine | DX: N92.6 Irregular menstruation, unspecified (principal); R10.9 Unspecified abdominal pain; R00.0 Tachycardia, unspecified | CPT/HCPCS: 84443 ==

== ENCOUNTER 2022-01-08 | Outpatient (CLI) | payer OTHER, MEDICAID, SELFPAY | END 2022-01-08 23:00 | disposition home or self-care (01) | LOC: RAD 01-21 11:15 | PROVIDERS: PCP Family Medicine; Visit Provider Family Medicine | DX: N89.8 Other specified noninflammatory disorders of vagina (principal) | CPT/HCPCS: 87070; 87205 ==

== ENCOUNTER → 2022-01-12 10:44 | Outpatient (BNVA) | payer OTHER, MEDICAID, SELFPAY | PROVIDERS: PCP Family Medicine; Visit Provider Internal Medicine Cardiovascular Disease | DX: R06.02 Shortness of breath (principal); Z79.01 Long term (current) use of anticoagulants | CPT/HCPCS: 80048; 83880; 85025 ==

== ENCOUNTER → 2022-01-23 13:30 | Outpatient (BNVA) | payer OTHER, MEDICAID, SELFPAY | PROVIDERS: PCP Family Medicine; Visit Provider Nurse Practitioner Women's Health | DX: E01.0 Iodine-deficiency related diffuse (endemic) goiter (principal) | CPT/HCPCS: 84439; 84443 ==

== ENCOUNTER → 2022-02-10 18:24 | Outpatient (BNVA) | payer OTHER, SELFPAY | PROVIDERS: PCP Family Medicine; Visit Provider Nurse Practitioner Family | DX: R39.9 Unspecified symptoms and signs involving the genitourinary system (principal) | CPT/HCPCS: 81000; 87086 ==

== ENCOUNTER → 2022-02-25 09:39 | Outpatient (BNVA) | payer OTHER, MEDICAID, SELFPAY | PROVIDERS: PCP Family Medicine; Visit Provider Family Medicine | DX: R30.0 Dysuria (principal); Z34.90 Encounter for supervision of normal pregnancy, unspecified, unspecified trimester; R00.0 Tachycardia, unspecified | CPT/HCPCS: 80307; 81000; 81025; 84144; 84439; 84443; 84481; 84702; 85025; 86592; 86762; 86803; 86850; 86900; 87086; 87340; 87491; 87591; 87624; 87806 ==

== ENCOUNTER 2022-03-09 07:51 | Outpatient (CLI) | payer OTHER, MEDICAID, SELFPAY ==
--- NOTE | 2022-03-09 08:00 | US_ITS ---
WS: [id number] EARLY OBSTETRICAL ULTRASOUND (<14 WEEKS). HISTORY: Dating US COMPARISON: None available. Single intrauterine gestational sac is identified. Cardiac activity at 180 BPM. [place]-rump length cyrus sures 2.7 cm which corresponds to a gestation of 9w4d. Normal-appearing yolk sac and amnion demonstra dorina. Small subchorionic hemorrhage. Subchorionic hemorrhage measures 7 x 13 mm. Hemorrhage is along the superior gestational sac. No free fluid. Normal size ovaries with no mass. US/US OB <= 14 weeks fetus [id number] IMPRESSION: 1. Single intrauterine gestation of 9 weeks 4 days with an EDC of 10/08/2022. 2. Tiny subchorionic hemorrhage.
== END 2022-03-09 07:52 | disposition home or self-care (01) ==
LOC: RAD 07:54
PROVIDERS: PCP Family Medicine; Visit Provider Family Medicine
DX: Z36.87 Encounter for antenatal screening for uncertain dates (principal); Z3A.09 9 weeks gestation of pregnancy; O46.8X1 Other antepartum hemorrhage, first trimester
CPT/HCPCS: 76801

== ENCOUNTER → 2022-03-27 09:36 | Outpatient (BNVA) | payer OTHER, MEDICAID, SELFPAY | PROVIDERS: PCP Family Medicine; Visit Provider Internal Medicine | DX: K91.2 Postsurgical malabsorption, not elsewhere classified (principal); R79.89 Other specified abnormal findings of blood chemistry | CPT/HCPCS: 36415; 83516; 84436; 84443; 86376; 86800 ==

== ENCOUNTER 2022-06-09 11:37 | Outpatient (CLI) | payer OTHER, SELFPAY ==
[2022-06-09 11:43] VITALS: BP 123/75; PULSE 116
[2022-06-09] MEDS: ondansetron 4 MG Tablet PO (12:25)
[2022-06-09 13:14] LABS: Bilirubin Urine Neg (Negative); Blood Urine Neg (Negative); Glucose Urine UA Norm (Normal); Ketones Urine Negative (Negative); Leukocyte Esterase Urine Negative (Negative); Nitrate Urine Negative (Negative); Protein Urine Neg (Negative); Sulfosalicylic Acid Urine Negative (Negative); Urine Appearance SL Hazy (CLEAR); Urine Color Colorless (Yellow); Urobilinogen Urine Neg (Negative); pH Urine 8 (5-7)
[2022-06-09 13:15] LABS: Add Urine Culture? No; Amorphous Sediment Urine 2+ /hpf; Squamous Epithelial Cell Urine RARE /hpf (0-5)
== END 2022-06-09 13:35 | disposition home or self-care (01) ==
LOC: OPOB 11:38 → OBGYN 11:39
PROVIDERS: PCP Family Medicine; Visit Provider Family Medicine
DX: O26.899 Other specified pregnancy related conditions, unspecified trimester (principal); R25.2 Cramp and spasm; R11.0 Nausea; Z3A.00 Weeks of gestation of pregnancy not specified
CPT/HCPCS: 81001; 99211; Q0162

== ENCOUNTER 2022-06-10 11:05 | Outpatient (CLI) | payer OTHER, MEDICAID, SELFPAY ==
[2022-06-10 12:14] LABS: Free T4 Free Thyroxine 1.19 ng/dL (0.82-1.77); Thyroid Stimulating Hormone 0.85 uIU/mL (0.27-4.20)
== END 2022-06-10 11:06 | disposition home or self-care (01) ==
LOC: LAB 11:12
PROVIDERS: PCP Family Medicine; Visit Provider Internal Medicine
DX: R79.89 Other specified abnormal findings of blood chemistry (principal)
CPT/HCPCS: 36415; 84439; 84443

== ENCOUNTER → 2022-07-15 12:02 | Outpatient (BNVA) | payer OTHER, SELFPAY | PROVIDERS: PCP Family Medicine; Visit Provider Family Medicine | DX: Z34.80 Encounter for supervision of other normal pregnancy, unspecified trimester (principal); R30.0 Dysuria | CPT/HCPCS: 82950; 87086 ==

== ENCOUNTER 2022-08-10 05:27 | Outpatient (CLI) | payer OTHER, MEDICAID, SELFPAY ==
[2022-08-10] VITALS (45 sets, daily range): BP systolic 101–137; BP diastolic 58–81; PULSE 91–136; O2SAT 100; BMI 21.2
[2022-08-10 06:28] LABS: Basophils % 0.2 %; Eosinophils % 0.1 %; Hematocrit 34.5 % (37.0-47.0); Hemoglobin 11.2 g/dL (11.5-15.3); Lymphocytes # 1.2 10^3/uL (0.8-4.8); Lymphocytes % 12.2 %; Mean Corpuscular HGB Conc 32.5 g/dL (30.0-36.0); Mean Corpuscular Hemoglobin 27.6 pg (28.0-34.0); Mean Platelet Volume 9.1 fL (7.4-10.4); Monocytes % 10.1 %; Neutrophils # 7.34 10^3/uL (1.8-7.7); Nucleated Red Blood Cells % 0 %; Platelet Count 164 10^3/cmm (130-400); Red Blood Count 4.06 10^6/uL (4.1-5.3); White Blood Count 9.5 10^3/uL (4.0-10.0)
[2022-08-10 06:42] LABS: Urine Color Yellow (Yellow)
[2022-08-10 06:43] LABS: Add Urine Culture? No; Bacteria Urine 1+ /hpf; Bilirubin Urine Neg (Negative); Blood Urine Neg (Negative); Glucose Urine UA Norm (Normal); Ketones Urine 3+ (Negative); Leukocyte Esterase Urine Trace (Negative); Mucus Urine 1+ /hpf; Nitrate Urine Negative (Negative); Protein Urine Neg (Negative); RBC Urine RARE /hpf (0-2); Specific Gravity, Urine 1.015 (1.005-1.030); Squamous Epithelial Cell Urine 15-25 /hpf (0-5); Urine Appearance Hazy (CLEAR); Urobilinogen Urine Norm (Negative); WBC Urine 0-4 /hpf (0-5); pH Urine 5 (5-7)
[2022-08-10 06:46] LABS: Albumin Level 3.5 g/dL (3.5-5.2); Alkaline Phosphatase 119 U/L (35-105); Aspartate Amino Transferase 20 U/L (0-32); Blood Urea Nitrogen 6 mg/dL (6-20); Calcium 8.5 mg/dL (8.5-10.5); Carbon Dioxide 20 mmol/L (22-29); Chloride 104 mmol/L (98-107); Globulin 3.1 g/dL (1.3-4.6); Glomerular Filtration Rate 151.6 mL/min (90-130); Glucose 97 mg/dL (65-115); Osmolality Calculated 282 mOsm/kg (285-295); Sodium 137 mmol/L (136-145); Total Bilirubin 0.6 mg/dL (0.15-1.2); Total Protein 6.6 g/dL (6.6-8.7)
[2022-08-10 06:56] LABS: Alanine Aminotransferase 14 U/L (0-33)
[2022-08-10] MEDS: terbutaline 1 mg/mL INJ 0.25 MG SUBCUT (07:36)
[2022-08-10] MEDS: betamethasone susp 6 mg/mL 5 mL 12 MG IM (08:29)
== END 2022-08-10 08:41 | disposition home or self-care (01) ==
LOC: OPOB 05:27 → OBGYN 05:28
PROVIDERS: PCP Family Medicine; Visit Provider Family Medicine
DX: O47.9 False labor, unspecified (principal); Z3A.00 Weeks of gestation of pregnancy not specified
CPT/HCPCS: 59025; 80053; 81001; 85025; 96372; 99211; J0702; J3105

== ENCOUNTER 2022-08-10 19:35 | Outpatient (CLI) | payer OTHER, MEDICAID, SELFPAY ==
[2022-08-10] VITALS (29 sets, daily range): BP systolic 108–127; BP diastolic 62–76; PULSE 87–158; RESP 15–18; TEMP 37.1; O2SAT 98–100; BMI 21.5
--- NOTE | 2022-08-10 20:10 | ECG_ITS ---
[facility] Test Date: 2022-08-10 Pat Name: Dixie Rasmussen Department: Room: OB14 Gender: Female [employer]: : 2000 Requested By: Anderson Mcclellan Order Number: [id number] Lulu MD: Mari Ojeda M.D. Measurements Intervals [place] Rate: 107 P: 41 CT: 158 QRS: 26 QRSD: 93 T: -7 QT: 336 QTc: 449 Interpretive Statements SINUS TACHYCARDIA ABNORMAL RHYTHM ECG Compared to ECG 10/10/2021 18:47:21 Sinus rhythm no longer present Electronically Signed On 08-11-2022 16:27:04 CDT by Mari Ojeda M.D. [id number]
[2022-08-10 20:46] LABS: Basophils % 0.1 %; Hemoglobin 10.5 g/dL (11.5-15.3); Lymphocytes # 0.7 10^3/uL (0.8-4.8); Mean Corpuscular HGB Conc 32.8 g/dL (30.0-36.0); Mean Corpuscular Hemoglobin 27.3 pg (28.0-34.0); Mean Corpuscular Volume 83.1 fl (81-99); Mean Platelet Volume 9.8 fL (7.4-10.4); Monocytes # 0.6 10^3/uL (0.2-0.9); Monocytes % 5.7 %; Neutrophils # 9.81 10^3/uL (1.8-7.7); Neutrophils % 87.8 %; Nucleated Red Blood Cells % 0 %; Platelet Count 197 10^3/cmm (130-400); Positive C 1; Red Blood Count 3.85 10^6/uL (4.1-5.3); Red Cell Distribution Width 12.2 % (12.1-15.1); White Blood Count 11.2 10^3/uL (4.0-10.0)
[2022-08-10 21:06] LABS: Troponin T (5th) Once 6 ng/L (0-10)
[2022-08-10 21:15] LABS: Free T4 Free Thyroxine 1.08 ng/dL (0.82-1.77); Thyroid Stimulating Hormone 0.96 uIU/mL (0.27-4.20)
[2022-08-10 21:47] LABS: D Dimer 1.01 ug/mIFEU (0-0.59)
== END 2022-08-10 22:08 | disposition home or self-care (01) ==
LOC: OPOB 19:36 → OBGYN 19:38
PROVIDERS: PCP Family Medicine; Visit Provider Family Medicine
DX: O47.9 False labor, unspecified (principal); O26.899 Other specified pregnancy related conditions, unspecified trimester; R07.9 Chest pain, unspecified; M54.9 Dorsalgia, unspecified; Z3A.00 Weeks of gestation of pregnancy not specified; R00.0 Tachycardia, unspecified
CPT/HCPCS: 36415; 59025; 84439; 84443; 84484; 85025; 85378; 93005; 99211

== ENCOUNTER 2022-08-11 08:49 | Outpatient (CLI) | payer OTHER, SELFPAY ==
[2022-08-11 08:48] VITALS: BMI 21.5
[2022-08-11] MEDS: betamethasone susp 6 mg/mL 5 mL 12 MG IM (09:02)
== END 2022-08-11 09:05 | disposition home or self-care (01) ==
PROVIDERS: Absent Provider Family Medicine; PCP Family Medicine; Visit Provider Family Medicine
DX: Z36.89 Encounter for other specified antenatal screening (principal)
CPT/HCPCS: 96372; J0702

== ENCOUNTER 2022-08-24 13:46 | Outpatient (CLI) | payer OTHER, MEDICAID, SELFPAY ==
--- NOTE | 2022-08-24 14:15 | US_ITS ---
WS: [id number] LIMITED OBSTETRICAL ULTRASOUND HISTORY: Measuring small for gestational age COMPARISON: 03/09/2022 Presentation: Cephalic. Cervix: Closed and normal length. Placenta: Anterior, no previa or abruption. Grade: 1 HEART: FHR of 144 BPM. measurements: BPD = 8.7 cm = 35w1d; 86th percentile HC = 31.8 cm = 35w6d; 72nd percentile AC = 28.1 cm = 32w1d; 14th percentile FL = 6.6 cm = 34w0d; 51st percentile DAVID: 9.6 cm EFW: 2168 g; 53rd percentile AGA by ultrasound: 34w2d OSITO by ultrasound: 10/03/2022 growth is appropriate as compared to the first trimester ultrasound. US/ OB limited [id number] IMPRESSION: 1. Single intrauterine gestation of 34 weeks 2 days with an EDC of 10/03/2022. 2. Abdominal circumference at the 14th percentile for gestational age. 3. EFW at the 53rd percentile for age. 4. No evidence for growth restriction at this time.
== END 2022-08-24 13:47 | disposition home or self-care (01) ==
LOC: RAD 13:47
PROVIDERS: PCP Family Medicine; Visit Provider Family Medicine
DX: Z34.81 Encounter for supervision of other normal pregnancy, first trimester (principal); Z3A.34 34 weeks gestation of pregnancy
CPT/HCPCS: 76815

== ENCOUNTER 2022-09-07 08:10 | Outpatient (CLI) | payer OTHER, MEDICAID, SELFPAY ==
[2022-09-07 08:15] VITALS: RESP 18; BMI 22.4
[2022-09-07 08:58] VITALS: BP 118/71; PULSE 96
[2022-09-07 09:18] VITALS: BP 112/72; PULSE 97
[2022-09-07 09:20] LABS: Nitrazine Paper, PH Inconclusive
[2022-09-07 09:28] LABS: Actim Prom Negative
[2022-09-07 09:38] VITALS: BP 107/60; PULSE 84
[2022-09-07 09:50] VITALS: RESP 18
== END 2022-09-07 09:55 | disposition home or self-care (01) ==
LOC: OPOB 08:10 → OBGYN 09:50
PROVIDERS: PCP Family Medicine; Visit Provider Family Medicine
DX: O47.9 False labor, unspecified (principal); O26.899 Other specified pregnancy related conditions, unspecified trimester; N89.8 Other specified noninflammatory disorders of vagina; Z3A.00 Weeks of gestation of pregnancy not specified
CPT/HCPCS: 59025; 83986; 84112; 99211

== ENCOUNTER → 2022-09-11 10:55 | Outpatient (BNVA) | payer MEDICAID, SELFPAY | PROVIDERS: PCP Family Medicine; Visit Provider Family Medicine | DX: Z34.80 Encounter for supervision of other normal pregnancy, unspecified trimester (principal) | CPT/HCPCS: 87081 ==

== ENCOUNTER 2022-09-22 20:26 | Outpatient (CLI) | payer OTHER, MEDICAID, SELFPAY ==
[2022-09-22 20:54] VITALS: RESP 16
[2022-09-22 20:58] VITALS: BP 119/82; PULSE 121
[2022-09-22 21:03] LABS: Nitrazine Paper, PH Inconclusive
[2022-09-22 21:11] LABS: Actim Prom Negative; Bilirubin Urine Neg (Negative); Blood Urine Neg (Negative); Glucose Urine UA Norm (Normal); Ketones Urine Negative (Negative); Leukocyte Esterase Urine Negative (Negative); Nitrate Urine Negative (Negative); Protein Urine Neg (Negative); Specific Gravity, Urine 1.005 (1.005-1.030); Urine Appearance Clear (CLEAR); Urine Color Light yellow (Yellow); Urobilinogen Urine Neg (Negative); pH Urine 7 (5-7)
[2022-09-22 21:13] VITALS: BP 123/74; PULSE 90
[2022-09-22 21:14] LABS: Bacteria Urine TRACE /hpf; Squamous Epithelial Cell Urine 0-4 /hpf (0-5); WBC Urine 0-4 /hpf (0-5)
[2022-09-22 21:15] LABS: Add Urine Culture? No
[2022-09-22 21:28] VITALS: BP 112/59; PULSE 86
[2022-09-22 21:51] VITALS: BMI 22.8
== END 2022-09-22 21:45 | disposition home or self-care (01) ==
LOC: OPOB 20:35 → OBGYN 20:51
PROVIDERS: PCP Family Medicine; Visit Provider Family Medicine
DX: O36.8190 Decreased fetal movements, unspecified trimester, not applicable or unspecified (principal); O26.899 Other specified pregnancy related conditions, unspecified trimester; R10.9 Unspecified abdominal pain; N89.8 Other specified noninflammatory disorders of vagina; Z3A.00 Weeks of gestation of pregnancy not specified
CPT/HCPCS: 59025; 81001; 83986; 84112; 87210; 99211

== ENCOUNTER 2022-09-23 14:56 | Outpatient (CLI) | payer MEDICAID, SELFPAY ==
--- NOTE | 2022-09-23 15:00 | US_ITS ---
WS: [id number] LIMITED OBSTETRICAL ULTRASOUND HISTORY: Small for gestational age - DAVID/EFW at 38 weeks COMPARISON: 08/24/2022, 05/26/2022 and 03/09/2022 Presentation: Vertex. Cervix: Closed and normal length. Placenta: Anterior, no previa or abruption. Grade: 3 HEART: FHR of 133 BPM. measurements: BPD = 9.2 cm = 37w4d; 64th percentile HC = 33.1 cm = 37w5d; 25th percentile AC = 34.0 cm = 37w6d; 69th percentile FL = 7.4 cm = 38w0d; 58th percentile DAVID: 11.1 cm EFW: 3335 g; 78th percentile AGA by ultrasound: 37w6d OSITO by ultrasound: 10/08/2022 Measurements are internally concordant. No growth asymmetry or restriction. US/US OB limited [id number] IMPRESSION: 1. Single intrauterine gestation of 37 weeks 6 days with an EDC of 10/08/2022. Appropriate interval growth since the first trimester ultrasound. 2. No growth asymmetry or growth restriction. 3. Grade 3 placenta. 4. Normal amniotic fluid.
== END 2022-09-23 14:57 | disposition home or self-care (01) ==
PROVIDERS: PCP Family Medicine; Visit Provider Family Medicine
DX: O36.5930 Maternal care for other known or suspected poor fetal growth, third trimester, not applicable or unspecified (principal); Z3A.37 37 weeks gestation of pregnancy
CPT/HCPCS: 76815

== ENCOUNTER 2022-09-27 14:31 | Outpatient (CLI) | payer MEDICAID, SELFPAY ==
[2022-09-27] VITALS (13 sets, daily range): BP systolic 112–143; BP diastolic 70–84; PULSE 74–121; RESP 16; BMI 28.9
[2022-09-27 18:59] LABS: Basophils % 0.3 %; Eosinophils % 0.2 %; Hematocrit 38.6 % (37.0-47.0); Hemoglobin 12.5 g/dL (11.5-15.3); Lymphocytes # 1.1 10^3/uL (0.8-4.8); Lymphocytes % 9.5 %; Mean Corpuscular HGB Conc 32.4 g/dL (30.0-36.0); Mean Corpuscular Hemoglobin 27.7 pg (28.0-34.0); Mean Corpuscular Volume 85.4 fl (81-99); Mean Platelet Volume 10.1 fL (7.4-10.4); Monocytes # 0.9 10^3/uL (0.2-0.9); Monocytes % 8.1 %; Neutrophils # 9.51 10^3/uL (1.8-7.7); Neutrophils % 81.5 %; Nucleated Red Blood Cells % 0 %; Platelet Count 163 10^3/cmm (130-400); Red Blood Count 4.52 10^6/uL (4.1-5.3); Red Cell Distribution Width 15.4 % (12.1-15.1); White Blood Count 11.7 10^3/uL (4.0-10.0)
--- NOTE | 2022-09-27 23:42 | P.SS_ITS ---
Short Stay Summary Providers Date of Admit/Discharge: 09/27/22 Attending Provider: Anderson Mejía MD Primary Care Provider: Anderson Mejía MD Chief Complaint: contractions HPI History of Present Illness Dixie Rasmussen is a 22 year old @ 38.3 weeks by 9 wk US inconsistent with LMP. Preg c/b anxiety, h/o abnormal pap. The patient presented to labor and delivery triage due to concern for contractions. She began having contractions at approximately 11 AM on 09/27/2022. She came in to triage around 3:00 in the afternoon and initially was 2.5 centimeters dilated. 1 hour later, she had changed to 3 cm. For this reason she was kept for further observation. The patient initially was having contractions regularly every 2 to 5 minutes. These then began to space out and since that time she has not made any further change. At 11 PM on 09/27/2022, the patient was still 3 cm dilated and her contractions have been every 2 to 4 minutes apart. She seems comfortable with her contractions. heart tones are category 1 with a heart rate in the mid 130s with moderate variability good accelerations. We discussed options for keeping the patient overnight to see if she continues to make change on her own versus going home with the assumption that this is early labor or false labor and to return when her contractions worsen or if her water breaks. The patient requested to be discharged home and we will have her return if her contractions increase again. All questions were answered. Precautions were discussed. The patient and her are in agreement with current plan of care. Review of Systems Narrative: The patient denies chest pains, shortness of breath, nausea, vomiting, diarrhea, is constipation, vaginal bleeding, leakage of fluid. Home Meds/Allergies Home Medications and Allergies Home Medications Medication Instructions Recorded Confirmed Type prenat.vits,marianela,[id number] 1 tab PO DAILY 02/25/22 09/23/22 History Allergies Allergy/AdvReac Type Severity Reaction Status Date / Time Penicillins Allergy Rash as an Verified 08/10/22 06:39 ---Has never taken Keflex Sulfa (Sulfonamide Allergy ALGY-Anaphy Verified 08/10/22 06:39 Antibiotics) laxis PFSH Acute PFSH: Medical History Anxiety taking propranolol; managed by Cardiology GERD (gastroesophageal reflux disease) No pertinent past medical history neghx: htn,dm,thyroid,dvt/pe PCP: Dr. Mejía Surgical History S/P wisdom tooth extraction Family History Grandfather Heart disease maternal Grandmother Hyperlipidemia paternal Hypertension paternal Diabetes maternal Family/Other Diabetes paternal aunt Stroke paternal aunt Thyroid condition paternal aunt Mother Breast cancer, Onset Age: 52 lumpectomy and chemotherapy. Denies family history of Colon cancer Ovarian cancer Uterine cancer Social History Substance/Drug Use: never Female Reproductive History: : 3 Spontaneous abortions: No Vitals/I&O/Wt Last Vital Signs Pulse 83 09/27/22 23:33 Resp 16 09/27/22 18:11 BP 125/79 09/27/22 23:33 O2 Del Method Room Air 09/27/22 17:20 Weight last 48 hrs Weight 148 lb Physical Exam Narrative: General: Alert and oriented x 3 Cardiac: Regular rate and rhythm, S1, S2 without murmurs, rubs, or gallops Lungs: Good air entry bilaterally. Clear to auscultation bilaterally. No wheezes, rales or ronchi Abdomen: Gravid uterus, no significant pain noted Extremities: Trace edema Diagnoses at Discharge Discharge Diagnosis (1) Supervision of normal intrauterine in multigravida: Status: Acute (2) False labor after 37 completed weeks of gestation: Status: Acute Discharge Plan Discharge Patient Disposition: Home Prescriptions: No Action prenat.vits,marianela,[id number]-bwisb Tablet 1 tab PO DAILY valacyclovir 1 gram tablet 1,000 mg PO Q8H 10 Days Qty: 30 0RF Patient Comments: Patient has not started this medication, awaiting discussion with Dr Mejía ferrous sulfate 325 mg (65 mg iron) tablet 325 mg PO BID Qty: 60 3RF Discharge Orders: Discharge Order (Routine); Ordered 09/27/22 Ordered By: Anderson Mejía Referrals: Anderson Mejía MD [Primary Care Provider] - Diet: Regular Activity: Resume usual activity Attestations Medical Necessity Statement*: The patient was hospitalized initially for what appeared to be labor, however her contractions spaced out and she stopped making change, so her stay did not cross 2 midnights. Time Spent in Patient Care*: less than 30 min Quality Metrics Clinical Quality Measures: [ No reported AMI, CVA or VTE this stay ] Coding Level of Care Code Acute Code for Chg Fwd Diagnoses Supervision of normal intrauterine in multigravida Z34.80 False labor after 37 completed weeks of gestation O47.1
== END 2022-09-27 23:56 | disposition home or self-care (01) ==
LOC: OPOB 14:37 → OBGYN 14:38
PROVIDERS: Family Medicine; PCP Family Medicine; Visit Provider Family Medicine
DX: O47.1 False labor at or after 37 completed weeks of gestation; Z3A.37 37 weeks gestation of pregnancy
CPT/HCPCS: 36415; 59025; 85025; 99211

== ENCOUNTER 2022-10-01 04:28 | Inpatient (IN) | payer MEDICAID, SELFPAY ==
[2022-10-01] VITALS (18 sets, daily range): BP systolic 112–133; BP diastolic 72–86; PULSE 66–114; RESP 15–18; TEMP 36.7–36.8; O2SAT 97; BMI 22.8
[2022-10-01 01:58] LABS: Nitrazine Paper, PH Negative
[2022-10-01 02:14] LABS: Actim Prom Negative
[2022-10-01 04:49] LABS: Basophils % 0.2 %; Eosinophils % 0.4 %; Hematocrit 39.7 % (37.0-47.0); Lymphocytes # 1.5 10^3/uL (0.8-4.8); Lymphocytes % 15.6 %; Mean Corpuscular HGB Conc 32.7 g/dL (30.0-36.0); Mean Corpuscular Hemoglobin 27.7 pg (28.0-34.0); Mean Corpuscular Volume 84.5 fl (81-99); Mean Platelet Volume 9.8 fL (7.4-10.4); Monocytes % 10.5 %; Neutrophils # 6.77 10^3/uL (1.8-7.7); Nucleated Red Blood Cells % 0 %; Platelet Count 151 10^3/cmm (130-400); Red Cell Distribution Width 15.5 % (12.1-15.1); White Blood Count 9.3 10^3/uL (4.0-10.0)
--- NOTE | 2022-10-01 06:30 | PM.HP ---
Providers/Chief Complaint Admitting Physician: Anderson Mejía MD Primary Care Provider: Anderson Mejía MD Chief Complaint: contractions History of Present Illness Dixie Rasmussen is a 22 year old @ 39.0 weeks by 9 wk US inconsistent with LMP. Preg c/b anxiety, h/o abnormal pap. The patient presented to labor and delivery triage due to concern for contractions. The patient began having contractions on the evening of 09/30/2022. They were mild but steady and gradually increased. By the morning of 10/01/2022, the patient presented to labor and delivery triage due to the contraction strengthening. She was initially noted to be 3 cm dilated. She had not made any change initially but was watched for a couple of hours and eventually began to make change up to 5 cm, so she was kept for spontaneous labor. She was unsure if her water was broken and an actimprom was negative. The patient denies any chest pains, shortness of breath, nausea, vomiting, diarrhea, constipation, dysuria. Medications/Allergies Home Medications Medication Instructions Recorded Confirmed Last Taken Type prenat.vits,marianela,[id number]-wair-pmgry 1 tab PO DAILY 02/25/22 09/23/22 08/10/22 20:00 History valacyclovir 1 gram tablet 1,000 mg PO Q8H 10 days #30 tabs 08/08/22 09/23/22 Unknown Rx ferrous sulfate 325 mg (65 mg 325 mg PO BID #60 tabs 08/11/22 09/23/22 Unknown Rx iron) tablet Allergies Allergy/AdvReac Type Severity Reaction Status Date / Time Penicillins Allergy Rash as an Verified 08/10/22 06:39 infant---Has never taken Keflex Sulfa (Sulfonamide Allergy ALGY-Anaphy Verified 08/10/22 06:39 Antibiotics) laxis PFSH Acute PFSH: Medical History Anxiety taking propranolol; managed by Cardiology GERD (gastroesophageal reflux disease) No pertinent past medical history neghx: htn,dm,thyroid,dvt/pe PCP: Dr. Mejía Surgical History S/P wisdom tooth extraction Family History Grandfather Heart disease maternal Grandmother Hyperlipidemia paternal Hypertension paternal Diabetes maternal Family/Other Diabetes paternal aunt Stroke paternal aunt Thyroid condition paternal aunt Mother Breast cancer, Onset Age: 52 lumpectomy and chemotherapy. Denies family history of Colon cancer Ovarian cancer Uterine cancer Social History Substance/Drug Use: never Female Reproductive History: : 3 Spontaneous abortions: No Vitals/I&O/Wt Last Vital Signs Pulse 97 10/01/22 06:17 BP 129/81 10/01/22 06:17 O2 Del Method Room Air 10/01/22 04:27 Weight last 48 hrs Weight 159 lb 0.005 oz Physical Exam Narrative: General: Alert and oriented x3 Eyes: Pupils equal round and reactive to light and accommodation Mouth: Mucous membranes moist, pharynx non-erythematous Cardiac: Regular rate and rhythm without murmurs Lungs: Clear to auscultation bilaterally without wheezes, crackles or rhonchi Abdomen: Soft, non-tender Extremities: Trace edema in the bilateral lower extremities Data 10/01/22 04:45 A&P Assessment and plan (1) Supervision of normal intrauterine in multigravida: The patient is doing well at this time. She was admitted for spontaneous labor. See delivery note for full details. Attestations Medical Necessity Statement*: I expect that the patient will be here for greater than 2 midnights due to routine intrapartum and management of labor and delivery. Coding Level of Care Code Acute Code for Chg Fwd Diagnoses Supervision of normal intrauterine in multigravida Z34.80
[2022-10-01] MEDS: dextrose 5%-lactated ringers 1,000 ML 125 ML IV (06:35)
--- NOTE | 2022-10-01 06:37 | P.PCNOB_ITS ---
Delivery Note: Date of delivery: October 01, 2022 Pre-delivery diagnoses: 1. Intrauterine at 39.0 weeks gestation 2. Spontaneous labor 3. Anxiety Post-delivery diagnoses: 1. Intrauterine status post spontaneous vaginal delivery at 39.0 weeks gestation 2. Spontaneous labor 3. Anxiety 4. Precipitous delivery 5. Delivery of healthy infant male weighing 8 pounds 8 ounces with Apgars of 8 and 9 Procedure: Spontaneous vaginal delivery Delivering Physician: Anderson Mejía MD Estimated blood loss (mL): 200 Pre-Delivery Course: The patient presented to labor and delivery triage due to concern for increasing contractions on the morning of 10/01/2022. She did not make any change after the first hour, however we decided to keep her to be sure that she would not make change on her own. When she was getting ready to be discharged after 2 hours if no change, her contractions started to increase and she was rechecked and had made change, so she was kept for spontaneous labor. She was admitted at approx imately 2 AM. The patient was making gradual change and I was notified at 4:18 AM that she was 7cm and still intact and that I was not needed yet. Delivery: The patient was 8 cm dilated and -1 station at approximately 5:35 AM. She then suddenly changed to complete and after [address] then took place at 5:38 AM and the head delivered spontaneously. I was notified at 5:38 AM that the baby was coming. The mother was in hands and knees when the head delivered. The nurse (Danielle) notes that the head did not deliver immediately, so she rolled her onto her back and with approximately 3 pushes and downward pressure, the anterior shoulder delivered along with the rest of the infant. The right shoulder was the anterior shoulder. The rest of the delivered without complication. I arrived shortly after delivery. After evaluating the situation, the patient was prepped and draped and the cord was clamped by myself and cut by the 's father. Cord blood was obtained. Traction was placed on the umbilical cord and the placenta was delivered at 6:00 AM without complication. The placenta was noted to be intact with a central umbilical cord insertion site. The uterus was massaged. The cervix was inspected and no lacerations were noted. The vaginal wall was inspected and no lacerations were noted. Currently both the mother and are doing well. History History History 3 Term 3 0 Miscarriages/Ectopic 0 Living Children 3 Past Pregnancies Del. Date GA/Weeks Outcome Route Wt Inf Gender Labor Lgth Comp. Anesth esia Location 05/23/21 39 live - full term Vaginal 7 lb 15 oz Male 6 [facility] 10/01/22 39 live - full term Vaginal 8 lb 8 oz Male 3 hr Precipitous Delivery [facility] Delivery Date: 05/23/21 Last Updated by: Anderson Mejía MD No epidural Coding Level of Care Code Acute Code for Chg Fwd Diagnoses
[2022-10-01] MEDS: ibuprofen 800 mg tablet PO ×3 (09:08→20:10)
[2022-10-01] MEDS: docusate sodium 100 mg Capsule PO ×2 (09:08→20:10)
[2022-10-01] MEDS: prenatal vitamin Capsule 1 CAP PO (09:08)
[2022-10-01 19:00] LABS: Hematocrit 32.4 % (37.0-47.0); Hemoglobin 10.5 g/dL (11.5-15.3); Mean Corpuscular HGB Conc 32.4 g/dL (30.0-36.0); Mean Corpuscular Hemoglobin 27.7 pg (28.0-34.0); Mean Corpuscular Volume 85.5 fl (81-99); Mean Platelet Volume 9.7 fL (7.4-10.4); Platelet Count 163 10^3/cmm (130-400); Red Blood Count 3.79 10^6/uL (4.1-5.3); Red Cell Distribution Width 15.4 % (12.1-15.1); White Blood Count 11.8 10^3/uL (4.0-10.0)
[2022-10-02 00:58] VITALS: BP 111/73; PULSE 71; RESP 16; TEMP 36.9; O2SAT 98
[2022-10-02 05:03] VITALS: BP 118/75; PULSE 68; RESP 16; TEMP 36.9; O2SAT 98
--- NOTE | 2022-10-02 06:52 | PM.DCS ---
Discharge Providers Date of Admission: 10/01/22 04:28 Date of Discharge: October 02, 2022 Attending Provider at Admission: Anderson Mejía MD Attending Provider at Discharge: Anderson Mejía MD Primary Care Provider: Anderson Mejía MD Diagnoses at Discharge Discharge Diagnosis (1) Supervision of normal intrauterine in multigravida: Status: Resolved Other Information Additional DC diagnoses/information: 1.? Intrauterine status post spontaneous vaginal delivery at 39.0 weeks gestation 2.? Spontaneous labor 3.? Anxiety 4.? Precipitous delivery 5.? Delivery of healthy infant male weighing 8 pounds 8 ounces with Apgars of 8 and 9 Reason for Visit Reason for Visit: contractions Brief History: The patient presented to labor and delivery triage due to concern for increasing contractions on the morning of 10/01/2022.? She did not make any change after the first hour, however we decided to keep her to be sure that she would not make change on her own.? When she was getting ready to be discharged after 2 hours if no change, her contractions started to increase and she was rechecked and had made change, so she was kept for spontaneous labor.? She was admitted at approximately 2 AM.? The patient was making gradual change and then made rapid change and delivered prior to me being able to get to the hospital time. The patient was delivered by the nurse. I arrived shortly after delivery.? After evaluating the situation, the patient was prepped and draped and the cord was clamped by myself and cut by the infant's father.? Cord blood was obtained.? Traction was placed on the umbilical cord and the placenta was delivered at 6:00 AM without complication.? The placenta was noted to be intact with a central umbilical cord insertion site.? The uterus was massaged.? The cervix was inspected and no lacerations were noted.? The vaginal wall was inspected and no lacerations were noted.? Currently both the mother and are doing well. Hospital Course Hospital Course The patient has done well without any complications. Her pain is well controlled. Her bleeding is decreasing well. She is afebrile. She is breast-feeding. She is tolerating food by mouth. She is voiding and stooling. Routine discharge instructions were discussed with the patient. All questions were answered. The patient is in agreement with discharge home at this time. Physical Exam Narrative: General: Alert and oriented x3 Mouth: Mucous membranes moist, pharynx non-erythematous Cardiac: Regular rate and rhythm without murmurs Lungs: Clear to auscultation bilaterally without wheezes, crackles or rhonchi Abdomen: Soft, non-tender, fundus is firm and well below the umbilicus. Extremities: Trace edema in the bilateral lower extremities Discharge Data Studies Completed and Pending Laboratory Results WBC 11.8 10^3/uL (4.0-10.0) H 10/01/22 18: RBC 3.79 10^6/uL (4.1-5.3) L 10/01/22 18: Hgb 10.5 g/dL (11.5-15.3) L 10/01/22 18: Hct 32.4 % (37.0-47.0) L 10/01/22 18: MCV 85.5 fl (81-99) 10/01/22 18: MCH 27.7 pg (28.0-34.0) L 10/01/22 18: MCHC 32.4 g/dL (30.0-36.0) 10/01/22 18: RDW 15.4 % (12.1-15.1) H 10/01/22 18:27 Plt Count 163 10^3/cmm (130-400) 10/01/22 18: MPV 9.7 fL (7.4-10.4) 10/01/22 18:27 Neut % (Auto) 73.0 % 10/01/22 04:45 Lymph % (Auto) 15.6 % 10/01/22 04:45 [place] % (Auto) 10.5 % 10/01/22 04:45 Eos % (Auto) 0.4 % 10/01/22 04:45 Baso % (Auto) 0.2 % 10/01/22 04:45 Neut # (Auto) 6.77 10^3/uL (1.8-7.7) 10/01/22 04:45 Lymph # (Auto) 1.5 10^3/uL (0.8-4.8) 10/01/22 04:45 [place] # (Auto) 1.0 10^3/uL (0.2-0.9) H 10/01/22 04:45 Eos # (Auto) 0.0 10^3/uL (0.0-0.8) 10/01/22 04:45 Baso # (Auto) 0.0 10^3/uL (0.0-0.1) 10/01/22 04:45 Nucleated RBC % (auto) 0 % 10/01/22 04:45 Nucleated RBCs # 0.0 /100WBC 10/01/22 04:45 Insulin-like GF I Negative 10/01/22 01:40 Fluid pH (paper) Negative 10/01/22 01:45 Vitals Last Vital Signs Temp 98.4 F 10/02/22 05:03 Pulse 68 10/02/22 05:03 Resp 16 10/02/22 05:03 BP 118/75 10/02/22 05:03 Pulse Ox 98 10/02/22 05:03 O2 Del Method Room Air 10/02/22 05:03 Discharge Plan Discharge Patient Disposition: Home Prescriptions: New ibuprofen 800 mg Tablet 800 mg PO TID Qty: 30 0RF Continued prenat.vits,marianela,lmf-brwb-enmzv Tablet 1 tab PO DAILY valacyclovir 1 gram tablet 1,000 mg PO Q8H 10 Days Qty: 30 0RF Patient Comments: Patient has not started this medication, awaiting discussion with Dr Mejía ferrous sulfate 325 mg (65 mg iron) tablet 325 mg PO BID Qty: 60 3RF Discharge Orders: Discharge Order (Routine); Ordered 10/02/22 Ordered By: Anderson Mejía Referrals: Anderson Mejía MD [Primary Care Provider] - 11/12/22 10:30 am Discharge Diet: Regular Discharge Activity: Increase activity as tolerated Patient Instructions: Bleeding (DC), Preeclampsia and Eclampsia After Delivery (GEN), Hemorrhage (DC), OB Discharge Report, OB Food/Drug Interaction Guide, OB Care at Home, Opioid Safety, OB Home Care, OB Vaginal Deliveries Activity Restrictions/Additional Instructions: Nothing per vagina for 6 weeks Discharge Attestations Time Spent in Discharge Care*: greater than 30 min Quality Metrics Clinical Quality Measures [ No reported AMI, CVA or VTE this stay] Coding Level of Care Code Acute Code for Chg Fwd Diagnoses Supervision of normal intrauterine in multigravida Z34.80
[2022-10-02 08:59] VITALS: BP 119/78; PULSE 90; TEMP 36.4; O2SAT 99
[2022-10-02] MEDS: ibuprofen 800 mg tablet PO (09:07)
[2022-10-02] MEDS: docusate sodium 100 mg Capsule PO (09:07)
[2022-10-02] MEDS: prenatal vitamin Capsule 1 CAP PO (09:07)
[2022-10-02 09:21] VITALS: BP 119/78; PULSE 90; TEMP 36.4; O2SAT 99
== END 2022-10-02 09:21 | disposition home or self-care (01) | DRG 807 ==
LOC: OPOB 04:29 → OBGYN 04:29
PROVIDERS: Admitting Provider Family Medicine; PCP Family Medicine; Visit Provider Family Medicine
DX: O62.3 Precipitate labor (principal); Z37.0 Single live birth; O99.344 Other mental disorders complicating childbirth; F41.9 Anxiety disorder, unspecified; Z3A.39 39 weeks gestation of pregnancy
CPT/HCPCS: 36415; 59025; 59409; 83986; 84112; 85025; 85027; 99211; J7040; J7121

== ENCOUNTER → 2022-11-12 10:30 | Outpatient (BNVA) | payer MEDICAID, SELFPAY | PROVIDERS: PCP Family Medicine; Visit Provider Family Medicine | DX: Z39.2 Encounter for routine postpartum follow-up (principal) | CPT/HCPCS: 88175 ==

== ENCOUNTER → 2023-03-03 09:59 | Outpatient (BNVA) | payer OTHER, SELFPAY | PROVIDERS: PCP Family Medicine; Visit Provider Family Medicine | DX: R53.81 Other malaise (principal); R53.83 Other fatigue; N92.0 Excessive and frequent menstruation with regular cycle; Z51.81 Encounter for therapeutic drug level monitoring | CPT/HCPCS: 80053; 82728; 83550; 85025; 86038; 86141 ==

== ENCOUNTER 2023-03-06 19:07 | Emergency (ER) | payer OTHER, SELFPAY ==
[2023-03-06 19:22] VITALS: BP 136/95; PULSE 104; RESP 16; TEMP 36.7; O2SAT 99
[2023-03-06 19:38] VITALS: BP 143/100; PULSE 110; RESP 16; O2SAT 100
--- NOTE | 2023-03-06 19:55 | USR_ITS ---
PROCEDURE INFORMATION: Exam: US Abdomen, Limited; Right Upper Quadrant Exam date and time: 03/06/2023 9:15 PM Age: 23 years old Clinical indication: Abdominal pain; Acute; Additional info: Ruq pain, ruq pain, n/d, right shoulder pain, recent labs with TECHNIQUE: Imaging protocol: Real time ultrasound of the abdomen with image documentation. Limited exam focused on the right upper quadrant. COMPARISON: US gall bladder [id number] 10/30/2020 9:13 AM FINDINGS: Liver: No acute abnormality. No intrahepatic ductal dilatation. No masses. Gallbladder: No acute abnormality. No gallstones. No significant gallbladder wall thickening. Biliary ducts: No significant biliary ductal dilatation. Common bile duct measures 3.4 mm in diameter. Pancreas: Visualized pancreas is unremarkable. Right kidney: No acute abnormality. No mass. No hydronephrosis. US/US gall bladder [id number] IMPRESSION: No acute abnormality demonstrated.
[2023-03-06 20:04] LABS: HCG Qualitative Urine. Negative (Negative)
[2023-03-06 20:09] LABS: Add Urine Microscopic? YES; Bacteria Urine TRACE /hpf; Bilirubin Urine Neg (Negative); Blood Urine 3+ (Negative); Glucose Urine UA Norm (Normal); Ketones Urine 1+ (Negative); Leukocyte Esterase Urine Trace (Negative); Nitrate Urine Negative (Negative); Protein Urine Neg (Negative); RBC Urine 15-25 /hpf (0-2); Specific Gravity, Urine 1.015 (1.005-1.030); Squamous Epithelial Cell Urine 0-4 /hpf (0-5); Urine Appearance SL Hazy (CLEAR); Urine Color Yellow (Yellow); Urobilinogen Urine Norm (Negative); pH Urine 7 (5-7)
[2023-03-06 20:10] LABS: Add Urine Culture? Yes
[2023-03-06 20:14] LABS: Basophils % 0.7 %; Eosinophils # 0.1 10^3/uL (0.0-0.8); Eosinophils % 3.3 %; Hematocrit 40.7 % (36-47); Lymphocytes # 1.5 10^3/uL (0.8-4.8); Lymphocytes % 35.6 %; Mean Corpuscular HGB Conc 33.2 g/dL (30-55); Mean Corpuscular Hemoglobin 28.7 pg (27-33); Mean Corpuscular Volume 86.4 fl (85-98); Mean Platelet Volume 8.5 fL (7.4-10.4); Monocytes # 0.6 10^3/uL (0.2-0.9); Neutrophils # 2.04 10^3/uL (1.8-7.7); Neutrophils % 47.4 %; Nucleated Red Blood Cells % 0 %; Platelet Count 277 10^3/cmm (157-399); Red Blood Count 4.71 10^6/uL (3.85-5.65); Red Cell Distribution Width 12.9 % (12.1-15.1)
[2023-03-06 20:19] VITALS: BP 143/100; PULSE 110; RESP 17; O2SAT 98
[2023-03-06 20:32] LABS: Alanine Aminotransferase 24 U/L (0-33); Albumin Level 4.4 g/dL (3.5-5.2); Alkaline Phosphatase 85 U/L (35-105); Anion Gap 16.1 (5-19); Aspartate Amino Transferase 21 U/L (0-32); Blood Urea Nitrogen 12 mg/dL (6-20); Calcium 9.7 mg/dL (8.5-10.5); Carbon Dioxide 25 mmol/L (22-29); Chloride 101 mmol/L (98-107); Creatinine Clr Calc Pharmacy 150.8853; Globulin 3.1 g/dL (1.3-4.6); Glomerular Filtration Rate 121.8 mL/min (90-130); Glucose 102 mg/dL (65-115); Lipase 38 U/L (13-60); Osmolality Calculated 286 mOsm/kg (285-295); Potassium 4.1 mmol/L (3.5-5.1); Sodium 138 mmol/L (136-145); Total Bilirubin 0.8 mg/dL (0.15-1.2); Total Protein 7.5 g/dL (6.6-8.7)
[2023-03-06] MEDS: metoclopramide 5 mg/mL SDV 2 mL 10 MG IVP (21:01)
[2023-03-06 21:13] VITALS: BP 140/84; PULSE 89; RESP 16; O2SAT 96
--- NOTE | 2023-03-06 21:13 | ED_ITS ---
HPI - Abdominal Pain 2 General: Chief Complaint: Abdominal Pain Stated Complaint: upper right abdomen pain, right shoulder pain Time Seen by Provider: 03/06/23 19:18 Source: patient Mode of arrival: ambulatory Limitations: no limitations History of Present Illness: Patient presents emergency department today for evaluation and treatment of return of right upper quadrant pain. Patient reports she has had pain like this off and on now for the last couple of years. She states tonight it has become acutely worse. She has pain in the right upper quadrant but is also radiating up into her right shoulder. She has had nausea but no vomiting or diarrhea with this episode. Patient denies urinary symptoms. She denies fevers. Patient was seen and evaluated a few days ago by primary care for upper respiratory symptoms and was diagnosed with a sinus infection and started on Augmentin. Patient had also been complaining of some polyarthralgia and they did obtain some labs. Upon review, patient was found to have slightly elevated bilirubin levels. Review of Systems 2 General: Reports: 10 or more systems reviewed and unremarkable except in HPI and below PFSH ED 2 PFSH: Medical History No pertinent past medical history neghx: htn,dm,thyroid,dvt/pe PCP: Dr. Mejía Anxiety taking propranolol; managed by Cardiology GERD (gastroesophageal reflux disease) Surgical History S/P wisdom tooth extraction Family History Grandfather Heart disease maternal Grandmother Hyperlipidemia paternal Hypertension paternal Diabetes maternal Family/Other Diabetes paternal aunt Stroke paternal aunt Thyroid disease paternal aunt Mother Breast cancer, Onset Age: 52 lumpectomy and chemotherapy. Denies family history of Colon cancer Ovarian cancer Uterine cancer Social History Substance/Drug Use: never Female Reproductive History: Spontaneous abortions: No Physical Exam 2 Const: COMMON NORMALS: no acute distress, patient oriented x3 and alert HENMT: COMMON NORMALS: normocephalic, atraumatic, hearing grossly normal bilaterally and moist oral mucous membranes HEAD & SCALP: normocephalic and atraumatic Eye: COMMON NORMALS: Equal, round and reactive pupils present, EOMs intact bilaterally and conjunctivae normal CONJUNCTIVA: Yes conjunctivae normal P UPIL: Yes Equal, round and reactive pupils present Neck/C-Spine: COMMON NORMALS: full ROM and no JVD Lymph: LYMPHATIC: no lymphadenopathy noted Resp: COMMON NORMALS: normal respiratory effort, No retractions, No use of accessory muscles and clear to auscultation bilaterally AUSCULTATION: clear to auscultation bilaterally Cardio: COMMON NORMALS: no JVD, regular rate and regular rhythm RATE: r egular rate RHYTHM: regular rhythm GI: OTHER: Normoactive bowel sounds. Patient tender in the right upper quadrant. Abdomen is soft. : COMMON NORMALS: Yes no CVA tenderness BLADDER/KIDNEY EXAM: Yes no CVA tenderness Back/Pelvis: COMMON NORMALS: no CVA tenderness, no thoracic nor lumbar tenderness and thoraco-lumbar ROM normal Extremity: COMMON NORMALS: normal to inspection, full ROM and capillary refill normal Neuro: COMMON NORMALS: patient oriented x3 SENSORIUM/ORIENTATION: Yes alert Psych: COMMON NORMALS: mental status grossly normal, Normal thought process present, cooperative, normal affect and activity/motor behavior normal T HOUGHT PROCESS: Normal thought process present Skin: COMMON NORMALS: no rashes or lesions noted and no wounds GENERAL SKIN EXAM: no rashes or lesions noted Course 2 Vital Signs: Vital signs: Vital Signs Temperature 98.1 F 03/06/23 19:22 Pulse Rate 85 03/06/23 22:18 Respiratory Rate 16 03/06/23 22:18 Blood Pressure 140/84 03/06/23 21:13 Pulse Oximetry 97 03/06/23 22:18 Oxygen Delivery Me thod Room Air 03/06/23 22:18 MDM - Abdominal Pain Medical Decision Making Lab work today is unremarkable. No signs of an elevated white blood cell count no signs of elevated LFTs or alk phos. Urinalysis is also clear. Patient's ultrasound revealed no signs of sludge, stones, or gallbladder wall thickening. As the patient has been having these issues off and on now for quite some time, I do think she would benefit from further evaluation and HIDA scan to evaluate for gallbladder dysfunction. I did discuss all of this with the patient who is in agreement for further evaluation. I will prescribe her some antinausea medication and make some dietary recommendations while she is waiting for her follow-up. Patient was given return precautions for any change or worsening. Patient verbalizes understanding and agreement to treatment plan. Differential Diagnosis Likely abdominal pain; Unlikely acute appendicitis, calculus of kidney, constipation, diverticulitis, endometriosis, gastroenteritis, pancreatitis or small bowel obstruction Lab Data 03/06/23 20:08 03/06/23 20:08 Labs/Radiology: Radiology Impressions Gallbladder Ultrasound 03/06/23 19:55 IMPRESSION: No acute abnormality demonstrated. Laboratory Results WBC 4.30 10^3/uL (3.29-11.43) 03/06/23 20:08 RBC 4.71 10^6/uL (3.85-5.65) 03/06/23 20:08 Hgb 13.50 g/dL (11.27-16.99) 03/06/23 20:08 Hct 40.7 % (36-47) 03/06/23 20:08 MCV 86.4 fl (85-98) 03/06/23 20:08 MCH 28.7 pg (27-33) 03/06/23 20:08 MCHC 33.2 g/dL (30-55) 03/06/23 20:08 RDW 12.9 % (12.1-15.1) 03/06/23 20:08 Plt Count 277 10^3/cmm (157-399) 03/06/23 20:08 MPV 8.5 fL (7.4-10.4) 03/06/23 20:08 Neut % (Auto) 47.4 % 03/06/23 20:08 Lymph % (Auto) 35.6 % 03/06/23 20:08 [place] % (Auto) 13.0 % 03/06/23 20:08 Eos % (Auto) 3.3 % 03/06/23 20:08 Baso % (Auto) 0.7 % 03/06/23 20:08 Neut # (Auto) 2.04 10^3/uL (1.8-7.7) 03/06/23 20:08 Lymph # (Auto) 1.5 10^3/uL (0.8-4.8) 03/06/23 20:08 [place] # (Auto) 0.6 10^3/uL (0.2-0.9) 03/06/23 20:08 Eos # (Auto) 0.1 10^3/uL (0.0-0.8) 03/06/23 20:08 Baso # (Auto) 0.0 10^3/uL (0.0-0.1) 03/06/23 20:08 Nucleated RBC % (auto) 0 % 03/06/23 20:08 Nucleated RBCs # 0.0 /100WBC 03/06/23 20:08 Sodium 138 mmol/L (136-145) 03/06/23 20:08 Potassium 4.1 mmol/L (3.5-5.1) 03/06/23 20:08 Chloride 101 mmol/L (98-107) 03/06/23 20:08 Carbon Dioxide 25 mmol/L (22-29) 03/06/23 20:08 Anion Gap 16.1 (5-19) 03/06/23 20:08 BUN 12 mg/dL (6-20) 03/06/23 20:08 Creatinine 0.6 mg/dL (0.5-0.9) 03/06/23 20:08 GFR Calculation 121.8 mL/min (90-130) 03/06/23 20:08 Glucose 102 mg/dL (65-115) 03/06/23 20:08 Calculated Osmolality 286 mOsm/kg (285-295) 03/06/23 20:08 Calcium 9.7 mg/dL (8.5-10.5) 03/06/23 20:08 Total Bilirubin 0.8 mg/dL (0.15-1.2) 03/06/23 20:08 AST 21 U/L (0-32) 03/06/23 20:08 ALT 24 U/L (0-33) 03/06/23 20:08 Alkaline Phosphatase 85 U/L (35-105) 03/06/23 20:08 Total Protein 7.5 g/dL (6.6-8.7) 03/06/23 20:08 Albumin 4.4 g/dL (3.5-5.2) 03/06/23 20:08 Globulin 3.1 g/dL (1.3-4.6) 03/06/23 20:08 Lipase 38 U/L (13-60) 03/06/23 20:08 HCG, Qual Negative (Negative) 03/06/23 19:36 Urine Color Yellow (Yellow) 03/06/23 19:36 Urine Appearance Sl hazy (CLEAR) A 03/06/23 19:36 Urine pH 7 (5-7) 03/06/23 19:36 Ur Specific [place] 1.015 (1.005-1.030) 03/06/23 19:36 Urine Protein Neg (Negative) 03/06/23 19:36 Urine Glucose (UA) Norm (Normal) 03/06/23 19:36 Urine Ketones 1+ (Negative) H 03/06/23 19:36 Urine Blood 3+ (Negative) H 03/06/23 19:36 Urine Nitrate Negative (Negative) 03/06/23 19:36 Urine Bilirubin Neg (Negative) 03/06/23 19:36 Urine Urobilinogen Norm mg/dL (Negative) 03/06/23 19:36 Ur Leukocyte Esterase Trace (Negative) H 03/06/23 19:36 Urine RBC 15-25 /hpf (0-2) H 03/06/23 19:36 Urine WBC 5-10 /hpf (0-5) H 03/06/23 19:36 Ur Squamous Epith Cells 0-4 /hpf (0-5) H 03/06/23 19:36 Amorphous Sediment Not Reportable 03/06/23 19:36 Urine Bacteria Trace /hpf (NONE) 03/06/23 19:36 All radiology interpretation(s) finalized by discharge Discharge Plan Discharge Patient Disposition: Home Clinical Impression: Abdominal pain, acute, right upper quadrant Condition: Stable Prescriptions: New ondansetron 4 mg tablet,disintegrating 4 mg PO Q8H 5 Days Qty: 15 0RF No Action amoxicillin-pot clavulanate 875-125 mg tablet 1 tab PO BID Qty: 20 0RF omeprazole 40 mg capsule,delayed release(DR/EC) 40 mg PO DAILY Qty: 30 1RF ibuprofen 800 mg Tablet 800 mg PO TID Qty: 30 0RF Discharge Orders: Discharge ED (Routine); Ordered 03/06/23 Ordered By: Antonia Christopher Referrals: Anderson Mejía MD [Primary Care Provider] - Discharge Diet: As Directed Discharge Activity: Increase activity as tolerated Patient Instructions: Biliary Colic (ED), Low Fat Diet (ED), HIDA Scan (DC) Activity Restrictions/Additional Instructions: Lab work today shows no acute concerns and ultrasound reveals no active gallstones, gall sludge, or thickened gallbladder wall. These are all good findings as often times these can lead to urgent/emergent surgery. Still, it is possible that you are having gallbladder dysfunction and at this point, would recommend you have follow-up with a specialist to discuss potentially getting a HIDA scan for further evaluation of your right upper quadrant discomfort. I have placed a referral on your behalf and you should be notified next week to be scheduled for this follow-up. I am also providing you some antinausea medication to help with your symptoms. I am providing you some information regarding HIDA scans as well as dietary changes that can be made which can often help with gallbladder pain. If for any reason you develop fever, have vomiting without ability to tolerate fluids or medication or have any change or worsening in your condition you should be seen and reevaluated back here in the ER. Coding Level of Care Code ED Disk Operator for Oren Burgos
[2023-03-06 22:18] VITALS: PULSE 85; RESP 16; O2SAT 97
[2023-03-06 22:50] VITALS: BP 140/84; PULSE 85; RESP 16; TEMP 36.7; O2SAT 97
--- NOTE | 2023-03-08 08:38 | DCPLANNER ---
Message was sent to general surgery on 03/08/23 ay [phone]. Clinic to contact patient.
== END 2023-03-06 22:51 | disposition home or self-care (01) ==
PROVIDERS: Emergency Provider Physician Assistant; PCP Family Medicine
DX: R10.11 Right upper quadrant pain (principal)
CPT/HCPCS: 76705; 80053; 81001; 81025; 83690; 85025; 87086; 99284; J2765

== ENCOUNTER → 2023-06-12 18:52 | Outpatient (BNVA) | payer OTHER, SELFPAY | PROVIDERS: PCP Family Medicine; Visit Provider Nurse Practitioner | DX: R39.9 Unspecified symptoms and signs involving the genitourinary system (principal) | CPT/HCPCS: 81000 ==

== ENCOUNTER → 2023-07-20 14:20 | Outpatient (BNVA) | payer OTHER, SELFPAY | PROVIDERS: PCP Family Medicine; Visit Provider Surgery | DX: K82.8 Other specified diseases of gallbladder (principal); K58.9 Irritable bowel syndrome, unspecified; Z51.81 Encounter for therapeutic drug level monitoring; Z79.1 Long term (current) use of non-steroidal anti-inflammatories (NSAID) | CPT/HCPCS: 36415; 80048; 80076; 83630; 83993; 85025 ==

== ENCOUNTER → 2023-08-12 09:12 | Outpatient (BNVA) | payer OTHER, SELFPAY | PROVIDERS: PCP Family Medicine; Visit Provider Family Medicine | DX: R53.81 Other malaise (principal); R53.83 Other fatigue; R19.7 Diarrhea, unspecified; K29.70 Gastritis, unspecified, without bleeding; R35.0 Frequency of micturition; R30.0 Dysuria | CPT/HCPCS: 87086 ==

== ENCOUNTER → 2023-08-13 08:45 | Outpatient (BNVA) | payer OTHER, SELFPAY | PROVIDERS: PCP Family Medicine; Visit Provider Family Medicine | DX: R79.89 Other specified abnormal findings of blood chemistry (principal) | CPT/HCPCS: 84439; 84443 ==

== ENCOUNTER → 2023-08-24 10:09 | Outpatient (BNVA) | payer OTHER, SELFPAY | PROVIDERS: PCP Family Medicine; Visit Provider Nurse Practitioner Women's Health | DX: N92.6 Irregular menstruation, unspecified (principal); N92.0 Excessive and frequent menstruation with regular cycle | CPT/HCPCS: 76830 ==

== ENCOUNTER 2023-09-07 16:57 | Emergency (ER) | payer OTHER, MEDICAID, SELFPAY ==
[2023-09-07 17:04] VITALS: BP 130/97; PULSE 120; RESP 18; TEMP 37.1; O2SAT 98
--- NOTE | 2023-09-07 17:23 | ECG_ITS ---
[facility] Test Date: 2023-09-07 Pat Name: Dixie Rasmussen Department: Room: Gender: Female Receiving Room Clerk: : 2000 Requested By: Lazarus Michel Order Number: [id number] Lulu MD: Tye Rm M.D. Measurements Intervals [employer] Rate: 121 P: 71 ID: [id number] QRS: 91 QRSD: 94 T: 55 QT: 411 QTc: 585 Interpretive Statements SINUS TACHYCARDIA BORDERLINE RIGHT AXIS DEVIATION [QRS AXIS > 90] NONSPECIFIC T-WAVE ABNORMALITY ABNORMAL RHYTHM ECG INTERPRETATION BASED ON A DEFAULT AGE OF 40 YEARS Compared to ECG 08/10/2022 20:27:09 T-wave abnormality now present Electronically Signed On 09-07-2023 21:33:05 CDT by Tye mR M.D. [id number]
--- NOTE | 2023-09-07 17:23 | XRR_ITS ---
PROCEDURE INFORMATION: Exam: XR Chest Exam date and time: 09/07/2023 5:42 PM Age: 23 years old Clinical indication: Shortness of breath; Additional info: Dyspnea/cough TECHNIQUE: Imaging protocol: Radiologic exam of the chest. Views: 1 view. COMPARISON: CT angio chest PE protcl [id number] 10/10/2021 9:38 PM FINDINGS: Lungs: The lungs are clear. No pulmonary consolidation. Pleural spaces: No pleural effusion or pneumothorax. Heart/Mediastinum: The cardiomediastinal silhouette is within normal limits. Bones/joints: No acute osseous abnormalities are seen. XR/XR chest 1V portable [id number] IMPRESSION: No acute cardiopulmonary disease.
--- NOTE | 2023-09-07 17:27 | ED_ITS ---
Documented by User: Lazarus Ramos DO 09/08/23 07:02 HPI - Arrhythmia/Palpitations 2 General: Chief Complaint: Arrhythmia/Palpitations Stated Complaint: SOB, heart palpitations, chest pain Time Seen by Provider: 09/07/23 17:21 History of Present Illness: 23-year-old female presents emergency ro om with complaints chest discomfort associated shortness of breath. She was sitting at home at rest not any exerting herself states she had a rapid heart rate which she reports is chronic. She had a transient episode of cyanosis is resolved at this point. She denies any recent fever sweats or chills no productive cough no vomiting or diarrhea no abdominal pain or chest pain at this time. She has had extensive cardiac workup including Holter monitors and they are talking about having him see the kraft digester operator who is persistent sinus tachycardia has been no diagnosed arrhythmias in the past. No recent trauma. No associated headache or vision changes. Patient presents to the ER with feeling sick for a little while. But today she started having some substernal chest pain. She felt a little bit short of breath and her lips turned blue. Patient does have a history of sinus tachycardia that is currently being worked up for. On arrival patient's heart rate was 120 bpm. MD complaint: rapid heart beat Onset (ago): hour(s) Duration: intermittent Arrhythmia history: other (Chronic tachycardia) Associated symptoms: Deny anxiety, cough, diaphoresis, muscle cramps, nausea, paresthesias, pre-syncope, sense of impending doom, short of breath, syncope or vomiting Review of Systems 2 Const: Denies: fever(s), chills or diaphoresis Card: Reports: palpitations; Denies: chest pain, syncope or pre-syncope Resp: Denies: dyspnea GI: Denies: abdominal pain, nausea or vomiting : Denies: dysuria, urinary frequency or urinary urgency Musc: Denies: neck pain, back pain or muscle cramps Skin/Breast: Denies: rash Psych: Denies: anxiety PFSH ED 2 PFSH: Medical History Sinus tachycardia (~2019) present since her first in 2019-- followed by Dr. Rm No pertinent past medical history neghx: htn,dm,thyroid,dvt/pe PCP: Dr. Kym Anxiety taking propranolol; managed by Cardiology GERD (gastroesophageal reflux disease) Surgical History S/P wisdom tooth extraction Family History Grandfather Heart disease maternal Grandmother Hyperlipidemia paternal Hypertension paternal Diabetes maternal Family/Other Diabetes paternal aunt Stroke paternal aunt Thyroid disease paternal aunt Mother Breast cancer, Onset Age: 52 lumpectomy and chemotherapy. Denies family history of Colon cancer Ovarian cancer Uterine cancer Social History Substance/Drug Use: never Female Reproductive History: Spontaneous abortions: No Physical Exam 2 Const: COMMON NORMALS: no acute distress GENERAL APPEARANCE: cooperative and comfortable ORIENTATION/CONSCIOUSNESS: Yes awake, Yes oriented to person, Yes oriented to place and Yes oriented to time HENMT: COMMON NORMALS: normocephalic, atraumatic and hearing grossly normal bilaterally HEAD & SCALP: normocephalic and atraumatic Resp: COMMON NORMALS: normal respiratory effort, No retractions, No use of accessory muscles and clear to auscultation bilaterally AUSCULTATION: clear to auscultation bilaterally Cardio: COMMON NORMALS: regular rate, regular rhythm and No murmurs present (Cardio) RATE: regular rate RHYTHM: regular rhythm GI: COMMON NORMALS: Soft to palpation and No hepatosplenomegaly present A USCULTATION: Yes normoactive bowel sounds PALPATION: Yes Soft to palpation, No Tenderness to palpation present (GI), No Guarding due to palpation present (GI) and Yes No hepatosplenomegaly present Extremity: COMMON NORMALS: normal to inspection, capillary refill normal, no clubbing, cyanosis or edema, no calf tenderness and no pedal edema Neuro: SENSORIUM/ORIENTATION: Yes oriented to person, Yes oriented to place and Yes oriented to time Skin: COMMON NORMALS: no rashes or lesions noted GENERAL SKIN EXAM: no rashes or lesions noted Course 2 Vital Signs: Vital signs: Vital Signs Temperature 98.8 F 09/07/23 17:04 Pulse Rate 85 09/07/23 20:08 Respiratory Rate 16 09/07/23 20:08 Blood Pressure 115/85 09/07/23 19:23 Pulse Oximetry 97 09/07/23 20:08 Oxygen Delivery Me thod Room Air 09/07/23 18:00 MDM - Arrhythmia/Palpitations Medical Decision Making Care signed out to Dr. Mcarthur at change of shift. See final notes for diagnosis and disposition. Patient was worked up with lab work and chest x-ray, lab work included CBC CMP TSH urinalysis all of which was essentially unremarkable. These results was discussed with the patient patient will be discharged home. Patient did ask for an inhaler to use in instances like this. We will prescribe her an albuterol inhaler. Medical Records I reviewed the patient's medical records. Lab Data I reviewed the patient's lab results. 09/07/23 05:39 09/07/23 05:39 Radiology Impressions Chest X-Ray 09/07/23 17:23 IMPRESSION: No acute cardiopulmonary disease. Laboratory Results WBC 4.99 10^3/uL (3.29-11.43) 09/07/23 05:39 RBC 5.26 10^6/uL (3.85-5.65) 09/07/23 05:39 Hgb 15.10 g/dL (11.27-16.99) 09/07/23 05:39 Hct 45.3 % (36-47) 09/07/23 05:39 MCV 86.1 fl (85-98) 09/07/23 05:39 MCH 28.7 pg (27-33) 09/07/23 05:39 MCHC 33.3 g/dL (30-55) 09/07/23 05:39 RDW 12.8 % (12.1-15.1) 09/07/23 05:39 Plt Count 259 10^3/cmm (157-399) 09/07/23 05:39 MPV 8.5 fL (7.4-10.4) 09/07/23 05:39 Neut % (Auto) 64.4 % 09/07/23 05:39 Lymph % (Auto) 11.4 % 09/07/23 05:39 Leake % (Auto) 22.0 % 09/07/23 05:39 Eos % (Auto) 1.4 % 09/07/23 05:39 Baso % (Auto) 0.6 % 09/07/23 05:39 Neut # (Auto) 3.21 10^3/uL (1.8-7.7) 09/07/23 05:39 Lymph # (Auto) 0.6 10^3/uL (0.8-4.8) L 09/07/23 05:39 Leake # (Auto) 1.1 10^3/uL (0.2-0.9) H 09/07/23 05:39 Eos # (Auto) 0.1 10^3/uL (0.0-0.8) 09/07/23 05:39 Baso # (Auto) 0.0 10^3/uL (0.0-0.1) 09/07/23 05:39 Nucleated RBC % (auto) 0 % 09/07/23 05:39 Nucleated RBCs # 0.0 /100WBC 09/07/23 05:39 Sodium 137 mmol/L (136-145) 09/07/23 05:39 Potassium 3.7 mmol/L (3.5-5.1) 09/07/23 05:39 Chloride 100 mmol/L (98-107) 09/07/23 05:39 Carbon Dioxide 25 mmol/L (22-29) 09/07/23 05:39 Anion Gap 15.7 (5-19) 09/07/23 05:39 BUN 14 mg/dL (6-20) 09/07/23 05:39 Creatinine 0.6 mg/dL (0.5-0.9) 09/07/23 05:39 GFR Calculation 121.8 mL/min (90-130) 09/07/23 05:39 Glucose 117 mg/dL (65-115) H 09/07/23 05:39 Calculated Osmolality 286 mOsm/kg (285-295) 09/07/23 05:39 Calcium 9.8 mg/dL (8.5-10.5) 09/07/23 05:39 Total Bilirubin 0.8 mg/dL (0.15-1.2) 09/07/23 05:39 AST 20 U/L (0-32) 09/07/23 05:39 ALT 24 U/L (0-33) 09/07/23 05:39 Alkaline Phosphatase 89 U/L (35-105) 09/07/23 05:39 Total Protein 8.6 g/dL (6.6-8.7) 09/07/23 05:39 Albumin 5.0 g/dL (3.5-5.2) 09/07/23 05:39 Globulin 3.6 g/dL (1.3-4.6) 09/07/23 05:39 TSH 2.40 uIU/mL (0.27-4.20) 09/07/23 05:39 HCG, Qual Negative (Negative) 09/07/23 05:39 Urine Color Yellow (Yellow) 09/07/23 18:41 Urine Appearance Clear (CLEAR) 09/07/23 18:41 Urine pH 7 (5-7) 09/07/23 18:41 Ur Specific [place] 1.010 (1.005-1.030) 09/07/23 18:41 Urine Protein Neg (Negative) 09/07/23 18:41 Urine Glucose (UA) Norm (Normal) 09/07/23 18:41 Urine Ketones Negative (Negative) 09/07/23 18:41 Urine Blood Neg (Negative) 09/07/23 18:41 Urine Nitrate Negative (Negative) 09/07/23 18:41 Urine Bilirubin Neg (Negative) 09/07/23 18:41 Urine Urobilinogen Norm mg/dL (Negative) 09/07/23 18:41 Ur Leukocyte Esterase Negative (Negative) 09/07/23 18:41 Discharge Plan Discharge Patient Disposition: Home Clinical Impression: Atypical chest pain, Shortness of breath Condition: Stable Prescriptions: New ProAir RespiClick 90 mcg/actuation aerosol powdr breath activated 2 inh inhalation Q6H PRN (Reason: shortness of breath) Qty: 1 0RF No Action ibuprofen 200 mg capsule 200 mg PO Q6H PRN propranolol 10 mg tablet 10 mg PO ONCE PRN omeprazole 40 mg capsule,delayed release(DR/EC) 40 mg PO DAILY Qty: 30 6RF Discharge Orders: Discharge ED (Routine); Ordered 09/07/23 Ordered By: Rene Mcarthur Referrals: Anderson Mejía MD [Primary Care Provider] - 1 week Patient Instructions: Chest Pain - Noncardiac, Shortness of Breath (ED) Activity Restrictions/Additional Instructions: Lab work performed in ER did not show any acute causes of your symptomatology. You have been prescribed an albuterol inhaler to use as needed when you are short of breath. Please follow-up with your family practice physician in the next 7 days for further evaluation and treatment. Coding Level of Care Code ED Rn Chronic for Chg Fwd Documented by User: Rene Mcarthur DO 09/07/23 20:37 HPI - Arrhythmia/Palpitations 2 General: Chief Complaint: Arrhythmia/Palpitations Stated Complaint: SOB, heart palpitations, chest pain Time Seen by Provider: 09/07/23 17:21 History of Present Illness: Patient presents to the ER with feeling sick for a little while. But today she started having some substernal chest pain. She felt a little bit short of breath and her lips turned blue. Patient does have a history of sinus tachycardia that is currently being worked up for. On arrival patient's heart rate was 120 bpm. Review of Systems 2 General: Reports: 10 or more systems reviewed and unremarkable except in HPI and below PFSH ED 2 PFSH: Medical History Sinus tachycardia (~2019) present since her first in 2019-- followed by Dr. Rm No pertinent past medical history neghx: htn,dm,thyroid,dvt/pe PCP: Dr. Mejía Anxiety taking propranolol; managed by Cardiology GERD (gastroesophageal reflux disease) Surgical History S/P wisdom tooth extraction Family History Grandfather Heart disease maternal Grandmother Hyperlipidemia paternal Hypertension paternal Diabetes maternal Family/Other Diabetes paternal aunt Stroke paternal aunt Thyroid disease paternal aunt Mother Breast cancer, Onset Age: 52 lumpectomy and chemotherapy. Denies family history of Colon cancer Ovarian cancer Uterine cancer Social History Substance/Drug Use: never Course 2 Vital Signs: Vital signs: Vital Signs Temperature 98.8 F 09/07/23 17:04 Pulse Rate 85 09/07/23 20:08 Respiratory Rate 16 09/07/23 20:08 Blood Pressure 115/85 09/07/23 19:23 Pulse Oximetry 97 09/07/23 20:08 Oxygen Delivery Me thod Room Air 09/07/23 18:00 MDM - Arrhythmia/Palpitations Medical Decision Making Patient was worked up with lab work and chest x-ray, lab work included CBC CMP TSH urinalysis all of which was essentially unremarkable. These results was discussed with the patient patient will be discharged home. Patient did ask for an inhaler to use in instances like this. We will prescribe her an albuterol inhaler. Lab Data 09/07/23 05:39 09/07/23 05:39 Radiology Impressions Chest X-Ray 09/07/23 17:23 IMPRESSION: No acute cardiopulmonary disease. Laboratory Results WBC 4.99 10^3/uL (3.29-11.43) 09/07/23 05:39 RBC 5.26 10^6/uL (3.85-5.65) 09/07/23 05:39 Hgb 15.10 g/dL (11.27-16.99) 09/07/23 05:39 Hct 45.3 % (36-47) 09/07/23 05:39 MCV 86.1 fl (85-98) 09/07/23 05:39 MCH 28.7 pg (27-33) 09/07/23 05:39 MCHC 33.3 g/dL (30-55) 09/07/23 05:39 RDW 12.8 % (12.1-15.1) 09/07/23 05:39 Plt Count 259 10^3/cmm (157-399) 09/07/23 05:39 MPV 8.5 fL (7.4-10.4) 09/07/23 05:39 Neut % (Auto) 64.4 % 09/07/23 05:39 Lymph % (Auto) 11.4 % 09/07/23 05:39 Leake % (Auto) 22.0 % 09/07/23 05:39 Eos % (Auto) 1.4 % 09/07/23 05:39 Baso % (Auto) 0.6 % 09/07/23 05:39 Neut # (Auto) 3.21 10^3/uL (1.8-7.7) 09/07/23 05:39 Lymph # (Auto) 0.6 10^3/uL (0.8-4.8) L 09/07/23 05:39 Leake # (Auto) 1.1 10^3/uL (0.2-0.9) H 09/07/23 05:39 Eos # (Auto) 0.1 10^3/uL (0.0-0.8) 09/07/23 05:39 Baso # (Auto) 0.0 10^3/uL (0.0-0.1) 09/07/23 05:39 Nucleated RBC % (auto) 0 % 09/07/23 05:39 Nucleated RBCs # 0.0 /100WBC 09/07/23 05:39 Sodium 137 mmol/L (136-145) 09/07/23 05:39 Potassium 3.7 mmol/L (3.5-5.1) 09/07/23 05:39 Chloride 100 mmol/L (98-107) 09/07/23 05:39 Carbon Dioxide 25 mmol/L (22-29) 09/07/23 05:39 Anion Gap 15.7 (5-19) 09/07/23 05:39 BUN 14 mg/dL (6-20) 09/07/23 05:39 Creatinine 0.6 mg/dL (0.5-0.9) 09/07/23 05:39 GFR Calculation 121.8 mL/min (90-130) 09/07/23 05:39 Glucose 117 mg/dL (65-115) H 09/07/23 05:39 Calculated Osmolality 286 mOsm/kg (285-295) 09/07/23 05:39 Calcium 9.8 mg/dL (8.5-10.5) 09/07/23 05:39 Total Bilirubin 0.8 mg/dL (0.15-1.2) 09/07/23 05:39 AST 20 U/L (0-32) 09/07/23 05:39 ALT 24 U/L (0-33) 09/07/23 05:39 Alkaline Phosphatase 89 U/L (35-105) 09/07/23 05:39 Total Protein 8.6 g/dL (6.6-8.7) 09/07/23 05:39 Albumin 5.0 g/dL (3.5-5.2) 09/07/23 05:39 Globulin 3.6 g/dL (1.3-4.6) 09/07/23 05:39 TSH 2.40 uIU/mL (0.27-4.20) 09/07/23 05:39 HCG, Qual Negative (Negative) 09/07/23 05:39 Urine Color Yellow (Yellow) 09/07/23 18:41 Urine Appearance Clear (CLEAR) 09/07/23 18:41 Urine pH 7 (5-7) 09/07/23 18:41 Ur Specific [place] 1.010 (1.005-1.030) 09/07/23 18:41 Urine Protein Neg (Negative) 09/07/23 18:41 Urine Glucose (UA) Norm (Normal) 09/07/23 18:41 Urine Ketones Negative (Negative) 09/07/23 18:41 Urine Blood Neg (Negative) 09/07/23 18:41 Urine Nitrate Negative (Negative) 09/07/23 18:41 Urine Bilirubin Neg (Negative) 09/07/23 18:41 Urine Urobilinogen Norm mg/dL (Negative) 09/07/23 18:41 Ur Leukocyte Esterase Negative (Negative) 09/07/23 18:41 All radiology interpretation(s) finalized by discharge Discharge Plan Discharge Patient Disposition: Home Clinical Impression: Atypical chest pain, Shortness of breath Condition: Stable Prescriptions: New ProAir RespiClick 90 mcg/actuation aerosol powdr breath activated 2 inh inhalation Q6H PRN (Reason: shortness of breath) Qty: 1 0RF No Action ibuprofen 200 mg capsule 200 mg PO Q6H PRN propranolol 10 mg tablet 10 mg PO ONCE PRN omeprazole 40 mg capsule,delayed release(DR/EC) 40 mg PO DAILY Qty: 30 6RF Discharge Orders: Discharge ED (Routine); Ordered 09/07/23 Ordered By: Rene Mcarthur Referrals: Anderson Mejía MD [Primary Care Provider] - 1 week Patient Instructions: Chest Pain - Noncardiac, Shortness of Breath (ED) Activity Restrictions/Additional Instructions: Lab work performed in ER did not show any acute causes of your symptomatology. You have been prescribed an albuterol inhaler to use as needed when you are short of breath. Please follow-up with your family practice physician in the next 7 days for further evaluation and treatment. Coding Level of Care Code ED Rn Chronic for Oren Burgos
[2023-09-07 17:56] LABS: Basophils % 0.6 %; Eosinophils # 0.1 10^3/uL (0.0-0.8); Eosinophils % 1.4 %; Hematocrit 45.3 % (36-47); Lymphocytes # 0.6 10^3/uL (0.8-4.8); Lymphocytes % 11.4 %; Mean Corpuscular HGB Conc 33.3 g/dL (30-55); Mean Corpuscular Hemoglobin 28.7 pg (27-33); Mean Corpuscular Volume 86.1 fl (85-98); Mean Platelet Volume 8.5 fL (7.4-10.4); Monocytes # 1.1 10^3/uL (0.2-0.9); Neutrophils # 3.21 10^3/uL (1.8-7.7); Neutrophils % 64.4 %; Nucleated Red Blood Cells % 0 %; Platelet Count 259 10^3/cmm (157-399); Red Blood Count 5.26 10^6/uL (3.85-5.65); Red Cell Distribution Width 12.8 % (12.1-15.1); White Blood Count 4.99 10^3/uL (3.29-11.43)
[2023-09-07 18:00] VITALS: BP 120/86; PULSE 91; O2SAT 100
[2023-09-07 18:29] LABS: HCG, Serum Qual Negative (Negative)
[2023-09-07 18:38] LABS: Alanine Aminotransferase 24 U/L (0-33); Alkaline Phosphatase 89 U/L (35-105); Aspartate Amino Transferase 20 U/L (0-32); Blood Urea Nitrogen 14 mg/dL (6-20); Calcium 9.8 mg/dL (8.5-10.5); Carbon Dioxide 25 mmol/L (22-29); Chloride 100 mmol/L (98-107); Creatinine Clr Calc Pharmacy 150.4744; Globulin 3.6 g/dL (1.3-4.6); Glomerular Filtration Rate 121.8 mL/min (90-130); Glucose 117 mg/dL (65-115); Osmolality Calculated 286 mOsm/kg (285-295); Sodium 137 mmol/L (136-145); Total Bilirubin 0.8 mg/dL (0.15-1.2); Total Protein 8.6 g/dL (6.6-8.7)
[2023-09-07 18:50] LABS: Add Urine Microscopic? NO; Charge for UA Resulting for Rev
[2023-09-07 18:50] LABS: Anion Gap 15.7 (5-19); Potassium 3.7 mmol/L (3.5-5.1)
[2023-09-07 18:53] LABS: Bilirubin Urine Neg (Negative); Blood Urine Neg (Negative); Glucose Urine UA Norm (Normal); Ketones Urine Negative (Negative); Leukocyte Esterase Urine Negative (Negative); Nitrate Urine Negative (Negative); Protein Urine Neg (Negative); Urine Appearance Clear (CLEAR); Urine Color Yellow (Yellow); Urobilinogen Urine Norm (Negative); pH Urine 7 (5-7)
[2023-09-07 19:23] VITALS: BP 115/85; PULSE 86; RESP 17; O2SAT 100
[2023-09-07 20:08] VITALS: PULSE 85; RESP 16; O2SAT 97
== END 2023-09-07 20:38 | disposition home or self-care (01) ==
PROVIDERS: Emergency Provider Family Medicine; PCP Family Medicine
DX: R07.89 Other chest pain (principal); R06.02 Shortness of breath
CPT/HCPCS: 71045; 80053; 81003; 84443; 84703; 85025; 93005; 99285

== ENCOUNTER → 2023-11-16 14:17 | Outpatient (BNVA) | payer OTHER, SELFPAY | PROVIDERS: PCP Family Medicine; Visit Provider Family Medicine | DX: Z01.419 Encounter for gynecological examination (general) (routine) without abnormal findings (principal) | CPT/HCPCS: 87491; 87591; 87624 ==

== ENCOUNTER → 2024-01-13 12:21 | Outpatient (BNVA) | payer OTHER, SELFPAY | PROVIDERS: PCP Family Medicine; Visit Provider Family Medicine | DX: E53.8 Deficiency of other specified B group vitamins (principal); R53.81 Other malaise; R53.83 Other fatigue; E55.9 Vitamin D deficiency, unspecified | CPT/HCPCS: 82306; 82607; 82728; 83550 ==

== ENCOUNTER 2024-01-31 08:31 | Outpatient (CLI) | payer OTHER, SELFPAY ==
--- NOTE | 2024-01-31 08:30 | FL_ITS ---
WS: [id number] Exam: FL barium swallow gastro [id number] Date/Time of Exam: 01/31/2024 8:42 AM Reason For Exam: Fluoroscopy time: 1min [id number] minutes # of spot films: 4 Oral pharyngeal phase of swallowing was normal. A smooth persistent moderate stricture of the cervica l esophagus noted at the C6 level. The remaining esophagus was patent with normal motility. No hiatal hernia or gastroesophageal reflux. Recommendations: Contrast CT scan of the neck could be helpful for further work-up if thought to be c linically warranted. FL/FL barium swallow gastro [id number] IMPRESSION: 1. Smooth persistent moderate stricture of the cervical esophagus noted at abou t the C6 level. Probably extrinsic. The remainder of the esophagus appears norm al.
== END 2024-01-31 08:32 | disposition home or self-care (01) ==
PROVIDERS: PCP Family Medicine; Visit Provider Family Medicine
DX: R13.10 Dysphagia, unspecified (principal); R93.3 Abnormal findings on diagnostic imaging of other parts of digestive tract
CPT/HCPCS: 74220

== ENCOUNTER 2024-02-22 09:02 | Outpatient (CLI) | payer OTHER, SELFPAY ==
--- NOTE | 2024-02-22 09:00 | CTR_ITS ---
PROCEDURE INFORMATION: Exam: CT Neck With Contrast Exam date and time: 02/22/2024 9:12 AM Age: 24 years old Clinical indication: Abnormal findings; Abnormal radiologic study of neck; Patient HX: Follow up to barium swallow, moderate extrinsic stricture c6 level; Additional info: Moderate extrinsic stricture on barium swallow - c6 level TECHNIQUE: Imaging protocol: Computed tomography of the neck with contrast. Radiation optimization: All CT scans at this facility use at least one of these dose optimization techniques: automated exposure control; mA and/or kV adjustment per patient size (includes targeted exams where dose is matched to clinical indication); or iterative reconstruction. Contrast material: OMNI 350; Contrast volume: 100 ml; Contrast route: INTRAVENOUS (IV); COMPARISON: RF FL barium swallow gastro [id number] 01/31/2024 8:42 AM RADIATION DOSE METRICS: Total DLP (mGy-cm): 128.79 FINDINGS: Paranasal sinuses: There is mucosal thickening involving the left maxillary sinus. No air-fluid levels are identified. Salivary glands: Normal. Glands are normal in size. Pharynx: Unremarkable. No significant tonsillar enlargement. Prevertebral and retropharyngeal spaces: Unremarkable. Larynx: Unremarkable. Epiglottis is normal. Thyroid: The thyroid gland is somewhat enlarged and may generate very minimal mass effect on the esophagus at the C6 level. This may or may not account for abnormality seen on recent barium swallow. No thyroid nodules or masses are otherwise appreciated. Trachea: Visualized trachea is unremarkable. Lungs: Unremarkable as visualized. Esophagus: No abnormalities are otherwise appreciated with regards to the esophagus. Lymph nodes: Unremarkable. No lymphadenopathy. Bones/joints: Unremarkable. No acute fracture. Soft tissues: Unremarkable. No significant soft tissue swelling. CT/CT neck w con* [id number] IMPRESSION: 1. Somewhat enlarged thyroid gland which may generate minimal mass effect on the esophagus at the C6-C7. This may or may not account for abnormality seen on barium swallow.
[2024-02-22] MEDS: iohexol 350 mg/mL 500 mL Btl (per mL) IV (09:22)
== END 2024-02-22 09:03 | disposition home or self-care (01) ==
LOC: RAD 09:03
PROVIDERS: PCP Family Medicine; Visit Provider Family Medicine
DX: R13.10 Dysphagia, unspecified (principal); K22.2 Esophageal obstruction; E04.9 Nontoxic goiter, unspecified; R93.89 Abnormal findings on diagnostic imaging of other specified body structures
CPT/HCPCS: 70491

== ENCOUNTER → 2024-03-08 11:31 | Outpatient (BNVA) | payer OTHER, SELFPAY | PROVIDERS: PCP Family Medicine; Visit Provider Family Medicine | DX: E04.9 Nontoxic goiter, unspecified (principal) | CPT/HCPCS: 84439; 84443; 84481; 86800 ==

== ENCOUNTER → 2024-03-17 09:46 | Outpatient (BNVA) | payer OTHER, SELFPAY | PROVIDERS: PCP Family Medicine; Visit Provider Family Medicine | DX: Z51.81 Encounter for therapeutic drug level monitoring (principal); R76.8 Other specified abnormal immunological findings in serum; M25.50 Pain in unspecified joint; R53.81 Other malaise; R53.83 Other fatigue | CPT/HCPCS: 80053; 83540; 85025; 85651; 86038; 86141 ==

== ENCOUNTER 2024-11-30 09:09 | Emergency (ER) | payer OTHER, SELFPAY ==
[2024-11-30 09:30] VITALS: BP 129/85; PULSE 101; RESP 17; TEMP 37; O2SAT 100
--- NOTE | 2024-11-30 09:34 | CT_ITS ---
WS: [id number] CT ABDOMEN PELVIS TECHNIQUE: Contrast-enhanced CT of the abdomen and pelvis with coronal and sagittal reformatted images. CLINICAL INFORMATION: abd pain COMPARISON: CT 05/25/2021 DLP: 397.[address] scans at [facility] use at least one of these dose optimization techniques: automated exposure control; mA and/or kV adjustment per patient size (includes targeted exams where dose is matched to clinical indication); or iterative reconstruction. FINDINGS: Low lying cecum in the pelvis. Appendix not visualized. Marked heterogeneous enhancement of the uterus likely physiologic. Retroverted and retroflexed uterus with endometrial thickening. Free fluid in the cul-de-sac. Multi follicular ovaries bilaterally. Peripheral enhancing RIGHT corpus luteum cyst measuring 13 mm. Prominent enhancing periuterine veins can be seen with pelvic congestion syndrome in the appropriate clinical setting.. Lung bases are well aerated. Normal liver and spleen. Normal GE junction. Adrenal glands are normal. Normal renal parenchymal enhancement. No hydronephrosis. Normal caliber abdominal aorta. Portal vein and splenic vein are patent. Normal gallbladder. Tiny fat-containing umbilical hernia. Low-lying cecum in the pelvis. Appendix not visualized. Mild disc bulge L4-L5 and L5-S1. CT/CT abdomen pelvis w con* [id number] IMPRESSION: 1. Low-lying cecum in the pelvis. Appendix not visualized. 2. No hydronephrosis. 3. Free fluid in the cul-de-sac with peripheral enhancing 13 mm RIGHT corpus l uteum cyst. 4. Marked enhancement the uterus with prominent periuterine vessels can be see n with pelvic congestion syndrome in the appropriate clinical setting. Retrover dorina and retroflexed uterus.
[2024-11-30 09:38] LABS: Hematocrit 43.5 % (36-47); Hemoglobin 14.00 g/dL (11.27-16.99); Mean Corpuscular HGB Conc 32.2 g/dL (30-55); Mean Corpuscular Hemoglobin 27.7 pg (27-33); Mean Corpuscular Volume 86.1 fl (85-98); Nucleated Red Blood Cells % 0 %; Platelet Count 246 10^3/cmm (157-399); Red Blood Count 5.05 10^6/uL (3.85-5.65); White Blood Count 4.74 10^3/uL (3.29-11.43)
[2024-11-30 09:43] VITALS: PULSE 98; O2SAT 99
[2024-11-30 09:46] LABS: Glucose Urine UA Negative (Normal); Nitrate Urine Negative (Negative); Specific Gravity, Urine 1.024 (1.005-1.030)
--- NOTE | 2024-11-30 09:50 | W.ED.ABDPA2 ---
HPI - Abdominal Pain General: Chief Complaint: Abdominal Pain Stated Complaint: ABD Pain going to back Time Seen by Provider: 11/30/24 09:25 Source: patient Mode of arrival: ambulatory Limitations: no limitations History of Present Illness: 24-year female states been having abdominal pain over the last week states is much worse last night. States pain was sharp in nature epigastric and was 9 out of 10. States she had felt like vomiting but did not vomit. She also had some slight dysuria she denies any fevers denies any worse or improving factors pain is currently a 4 out of 10 Related Data Home Medications ?Medication ?Instructions ?Recorded ?Confirmed cetirizine 10 mg tablet (Zyrtec) 10 mg PO DAILY PRN allergies 11/16/23 11/30/24 budesonide-formoterol HFA 80 1 inh inhalation BID PRN Shortness 11/30/24 11/30/24 mcg-4.5 mcg/actuation aerosol Of Breath inhaler (Symbicort) Previous Rx's ?Medication ?Instructions ?Recorded citalopram 10 mg tablet 10 mg PO BID #60 tabs 10/30/24 ondansetron 4 mg disintegrating 4 mg PO Q6H PRN nausea and 11/30/24 tablet vomiting #14 tabs Allergies Allergy/AdvReac Type Severity Reaction Status Date / Time Penicillins Allergy ALGY-Rash Verified 08/08/24 11:38 Sulfa (Sulfonamide Allergy ALGY-Anaphy Verified 02/20/24 09:58 Antibiotics) laxis Review of Systems GI: Reports: abdominal pain [facility] ED PFSH: Medical History Sinus tachycardia (~2019) present since her first in 2019-- followed by Dr. Gayle No pertinent past medical history neghx: htn,dm,thyroid,dvt/pe PCP: Dr. Mejía Anxiety taking propranolol; managed by Cardiology GERD (gastroesophageal reflux disease) Surgical History S/P wisdom tooth extraction Family History Grandfather Heart disease maternal Grandmother Hyperlipidemia paternal Hypertension paternal Diabetes maternal Family/Other Diabetes paternal aunt Stroke paternal aunt Thyroid disease paternal aunt Mother Breast cancer, Onset Age: 52 lumpectomy and chemotherapy. 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 Female Reproductive History: Spontaneous abortions: No Physical Exam Const: COMMON NORMALS: no acute distress, patient oriented x3 and healthy appearing HENMT: COMMON NORMALS: normocephalic and atraumatic HEAD & SCALP: normocephalic and atraumatic Eye: COMMON NORMALS: conjunctivae normal CONJUNCTIVA: Yes conjunctivae normal Neck/C-Spine: COMMON NORMALS: full ROM and supple Chest: COMMONS NORMALS: normal inspection of the chest and normal palpation of entire chest wall Resp: COMMON NORMALS: normal respiratory effort, No retractions, No use of accessory muscles and clear to auscultation bilaterally AUSCULTATION: clear to auscultation bilaterally Cardio: COMMON NORMALS: regular rate, regular rhythm and No murmurs present (Cardio) RATE: regular rate RHYTHM: regular rhythm GI: COMMON NORMALS: Normal to inspection, nondistended, normoactive bowel sounds present, Soft to palpation, non-tender and no masses PALPATION: Yes Soft to palpation Extremity: COMMON NORMALS: normal to inspection and full ROM Neuro: COMMON NORMALS: patient oriented x3, moves all extremities and no focal motor deficits Psych: COMMON NORMALS: mental status grossly normal, Normal thought process present and cooperative THOUGHT PROCESS: Normal thought process present Skin: COMMON NORMALS: no rashes or lesions noted and no wounds GENERAL SKIN EXAM: no rashes or lesions noted Course Vital Signs: Vital signs: Vital Signs Temperature 98.6 F 11/30/24 09:30 Pulse Rate 97 11/30/24 11:08 Respiratory Rate 17 11/30/24 09:30 Blood Pressure 129/79 11/30/24 11:08 Pulse Oximetry 100 11/30/24 11:08 Oxygen Delivery Me thod Room Air 11/30/24 09:30 MDM - Abdominal Pain Medical Decision Making Patient presents with abdominal pain differential did include appendicitis, bowel obstruction, pancreatitis, cholecystitis, . Patient CT scan showed no signs of the above her initial and repeat abdominal exams here are benign with no tenderness. Her test was negative. It is likely gastric pain from her history and physical. I did go over her imaging and lab work with her labs showed no acute abnormalities will prescribe her Zofran she has an appoint with her PCP tomorrow she is to schedule this followed return if worsening she understands agrees to plan Medical Records I reviewed the patient's medical records. Lab Data I reviewed the patient's lab results. 11/30/24 09:32 11/30/24 09:32 Labs/Radiology: Radiology Impressions Abdomen/Pelvis CT 11/30/24 09:34 IMPRESSION: 1. Low-lying cecum in the pelvis. Appendix not visualized. 2. No hydronephrosis. 3. Free fluid in the cul-de-sac with peripheral enhancing 13 mm RIGHT corpus luteum cyst. 4. Marked enhancement the uterus with prominent periuterine vessels can be seen with pelvic congestion syndrome in the appropriate clinical setting. Retroverted and retroflexed uterus. Laboratory Results WBC 4.74 10^3/uL (3.29-11.43) 11/30/24 09:32 RBC 5.05 10^6/uL (3.85-5.65) 11/30/24 09:32 Hgb 14.00 g/dL (11.27-16.99) 11/30/24 09:32 Hct 43.5 % (36-47) 11/30/24 09:32 MCV 86.1 fl (85-98) 11/30/24 09:32 MCH 27.7 pg (27-33) 11/30/24 09: MCHC 32.2 g/dL (30-55) 11/30/24 09:32 RDW 13.8 % (12.1-15.1) 11/30/24 09:32 Plt Count 246 10^3/cmm (157-399) 11/30/24 09:32 MPV 8.5 fL (7.4-10.4) 11/30/24 09:32 Neut % (Auto) 62.8 % 11/30/24 09:32 Lymph % (Auto) 22.2 % 11/30/24 09:32 [place] % (Auto) 12.7 % 11/30/24 09:32 Eos % (Auto) 1.3 % 11/30/24 09:32 Baso % (Auto) 0.8 % 11/30/24 09:32 Neut # (Auto) 2.98 10^3/uL (1.8-7.7) 11/30/24 09:32 Lymph # (Auto) 1.1 10^3/uL (0.8-4.8) 11/30/24 09:32 [place] # (Auto) 0.6 10^3/uL (0.2-0.9) 11/30/24 09:32 Eos # (Auto) 0.1 10^3/uL (0.0-0.8) 11/30/24 09:32 Baso # (Auto) 0.0 10^3/uL (0.0-0.1) 11/30/24 09:32 Nucleated RBC % (auto) 0 % 11/30/24 09:32 Nucleated RBCs # 0.0 /100WBC 11/30/24 09:32 Sodium 139 mmol/L (136-145) 11/30/24 09:32 Potassium 3.7 mmol/L (3.5-5.1) 11/30/24 09:32 Chloride 102 mmol/L (98-107) 11/30/24 09:32 Carbon Dioxide 23 mmol/L (22-29) 11/30/24 09:32 Anion Gap 17.7 (5-19) 11/30/24 09:32 BUN 9 mg/dL (6-20) 11/30/24 09:32 Creatinine 0.6 mg/dL (0.5-0.9) 11/30/24 09:32 GFR Calculation 120.8 mL/min (90-130) 11/30/24 09:32 Glucose 102 mg/dL (65-115) 11/30/24 09:32 Calculated Osmolality 287 mOsm/kg (285-295) 11/30/24 09:32 Calcium 9.3 mg/dL (8.5-10.5) 11/30/24 09:32 Total Bilirubin 1.3 mg/dL (0.15-1.2) H 11/30/24 09:32 AST 22 U/L (0-32) 11/30/24 09:32 ALT 20 U/L (0-33) 11/30/24 09:32 Alkaline Phosphatase 89 U/L (35-105) 11/30/24: Total Protein 8.6 g/dL (6.6-8.7) 11/30/24 Albumin 5.1 g/dL (3.5-5.2) 11/30/24 Globulin 3.5 g/dL (1.3-4.6) 11/30/24 Lipase 39 U/L (13-60) 11/30/24: HCG, Qual Negative (Negative) 11/30/24 Urine Color Yellow (Yellow) 11/30/24 Urine Appearance Cloudy (CLEAR) A 11/30/24: Urine pH 7.5 (5-7) 11/30/24 Ur Specific [place] 1.024 (1.005-1.030) 11/30/24: Urine Protein Trace (Negative) A 11/30/24: Urine Glucose (UA) Negative (Normal) 11/30/24 Urine Ketones Trace (Negative) 11/30/24 Urine Blood Negative (Negative) 11/30/24: Urine Nitrate Negative (Negative) 11/30/24: Urine Bilirubin Negative (Negative) 11/30/24 Urine Urobilinogen 1.0 mg/dL (Negative) 11/30/24: Ur Leukocyte Esterase 1+ (Negative) A 11/30/24 Urine RBC Rare /hpf (0-2) 11/30/24: Urine WBC 0-4 /hpf (0-5) H 11/30/24 Ur Squamous Epith Cells 5-10 /hpf (0-5) H 11/30/24 Amorphous Sediment Not Reportable 11/30/24 Urine Bacteria Trace /hpf (NONE) 11/30/24 Hyaline Casts 0-4 /lpf H 11/30/24 All radiology interpretation(s) finalized by discharge Discharge Plan Discharge Patient Disposition: Home Clinical Impression: Abdominal pain Condition: Stable Prescriptions: New ondansetron 4 mg tablet,disintegrating 4 mg PO Q6H PRN (Reason: nausea and vomiting) Qty: 14 0RF No Action cetirizine [Zyrtec] 10 mg tablet 10 mg PO DAILY PRN (Reason: allergies) citalopram 10 mg tablet 10 mg PO BID Qty: 60 6RF budesonide-formoterol [Symbicort] 80-4.5 mcg/actuation HFA aerosol inhaler 1 inh inhalation BID PRN (Reason: Shortness Of Breath) Discharge Orders: Discharge ED (Routine); Ordered 11/30/24 Ordered By: Shane Dewey Referrals: Anderson Mejía MD [Primary Care Provider, Family Practice] - 4-7 days Discharge Diet: Advance as tolerated Discharge Activity: Resume usual activity Patient Instructions: Abdominal Pain (ED) Print Language: Swedish Coding Level of Care Code ED Internal Medicine Nurse for Oren Burgos
[2024-11-30 09:55] LABS: Alanine Aminotransferase 20 U/L (0-33); Albumin Level 5.1 g/dL (3.5-5.2); Alkaline Phosphatase 89 U/L (35-105); Anion Gap 17.7 (5-19); Aspartate Amino Transferase 22 U/L (0-32); Blood Urea Nitrogen 9 mg/dL (6-20); Calcium 9.3 mg/dL (8.5-10.5); Carbon Dioxide 23 mmol/L (22-29); Chloride 102 mmol/L (98-107); Creatinine Clr Calc Pharmacy 149.1659; Globulin 3.5 g/dL (1.3-4.6); Glucose 102 mg/dL (65-115); Lipase 39 U/L (13-60); Osmolality Calculated 287 mOsm/kg (285-295); Potassium 3.7 mmol/L (3.5-5.1); Sodium 139 mmol/L (136-145); Total Protein 8.6 g/dL (6.6-8.7)
[2024-11-30 10:05] LABS: HCG, Serum Qual Negative (Negative)
[2024-11-30 10:10] LABS: Add Urine Microscopic? YES; UA Manual Slide Review YES; UA Slide Review UA Slide Review Perf
[2024-11-30] MEDS: iohexol 350 mg/mL 500 mL Btl (per mL) IV (10:23)
[2024-11-30 10:46] VITALS: PULSE 86; O2SAT 100
[2024-11-30 11:08] VITALS: BP 129/79; PULSE 97; O2SAT 100
== END 2024-11-30 11:09 | disposition home or self-care (01) ==
PROVIDERS: Emergency Provider Emergency Medicine; PCP Family Medicine
DX: R10.9 Unspecified abdominal pain (principal)
CPT/HCPCS: 36415; 74177; 80053; 81001; 83690; 84703; 85025; 99285; J7030